=== PATIENT | female | born 1945 | race Caucasian/White ===

== ENCOUNTER → 2016-12-05 | Outpatient (CLI) | payer MEDICARE ==
[~2016-12-05] MED LIST: AMIO200T PO; ASPI81TA11 PO; BENEPOW8 PO; CYCL5TAB PO; CYMB60CA PO; DIPH25CA PO; ESTA2TAB PO; HYDR-3533 PO; KAOP240C PO; LIPI40TA PO; LORA-373 PO; MARI5CAP PO; META800T81 PO; METO25TA3 PO; MIRTA15 PO; MUPI2%T TOPICAL; NITR1SUB3 SL; PLAV75TA29 PO; RENATAB5 PO; SENS90TA PO; SEVEL800 PO; SITA50 PO; TRAZ300T2 PO; ULTR37.55 PO; ZETI10TA5 PO
[2016-12-05 14:22] LABS: HEMATOCRIT 30.5 % (35.0-46.0); MEAN CELL VOLUME 93.2 FL (80.0-100.0); MEAN CORPUSCULAR HEMOGLOBIN 29.9 PG (27.0-34.0); MEAN CORPUSCULAR HGB CONC 32.1 % (32.0-36.0); PLATELET COUNT 489 TH/MM3 (150-450); RED BLOOD COUNT 3.28 MIL/MM3 (4.00-5.30); RED CELL DISTRIBUTION WIDTH 18.4 % (11.6-17.2); REVIEW FLAG FINAL; WHITE BLOOD COUNT 16.7 TH/MM3 (4.0-11.0)
[2016-12-05 15:34] LABS: ALKALINE PHOSPHATASE 82 U/L (45-117); ALT (GPT) 37 U/L (10-53); ANION GAP 15 MEQ/L (5-15); AST (GOT) 43 U/L (15-37); BLOOD UREA NITROGEN 37 MG/DL (7-18); CALCIUM-PROTEIN CORRECTED 7.7 MG/DL (8.5-10.1); CHLORIDE 102 MEQ/L (98-107); GLOMERULAR FILTRATION RATE 6 ML/MIN (>89); GLUCOSE,FASTING 71 MG/DL (74-99); LDL CHOLESTEROL 52 MG/DL (0-99); POTASSIUM 3.5 MEQ/L (3.5-5.1); SODIUM (NA) 140 MEQ/L (136-145); TOTAL BILIRUBIN ADULT 0.3 MG/DL (0.2-1.0)
[2016-12-05 16:19] LABS: HEMOGLOBIN A1a 1.1 %; HEMOGLOBIN A1b 2.4 %; HEMOGLOBIN Ao 82.5 %; HEMOGLOBIN LA1C 2.9 %; HEMOGLOBIN P3 6.6 %
== END ==
LOC: CLAB 13:57
PROVIDERS: ATTEND Family Medicine
DX: E78.5 Hyperlipidemia, unspecified (principal); I63.50 Cerebral infarction due to unspecified occlusion or stenosis of unspecified cerebral artery; F31.30 Bipolar disorder, current episode depressed, mild or moderate severity, unspecified; I12.0 Hypertensive chronic kidney disease with stage 5 chronic kidney disease or end stage renal disease; N18.5 Chronic kidney disease, stage 5; E11.22 Type 2 diabetes mellitus with diabetic chronic kidney disease; I73.9 Peripheral vascular disease, unspecified
CPT/HCPCS: 36415; 80053; 80061; 83036; 84443; 85027

== ENCOUNTER 2017-05-05 09:53 | Inpatient (IN) | payer MEDICARE ==
[2017-05-05] VITALS (8 sets, daily range): BP systolic 116–146; BP diastolic 58–84; PULSE 66–79; RESP 16–20; TEMP 96–97.9; O2SAT 96–99
[~2017-05-05] VITALS: Ht 162.6 cm; Wt 51.8 kg
--- NOTE | 2017-05-05 10:05 | PD ---
HPI Chief Complaint: Fall Time Seen by Provider: 10:04 Travel History International Travel<30 days: No Contact w/Intl Traveler<30days: No Traveled to known affect area: No History of Present Illness HPI 71-year-old female came to the emergency room with history of fall and unable to get up from the floor. Patient says this happened at around 2 AM in the morning. However she says she's been sick for past 1 week or so. Patient has end-stage renal disease and does peritoneal dialysis every day at home. However because of her debilitated condition where she has been unable to ambulate he has not had peritoneal dialysis done in the past 2 days at least. Patient has history of stroke in the past. She appears to be in distress but able to communicate and answer questions appropriately. She is complaining of lower back pain radiating down her right leg but says that her sciatica pain which she's had in the past. No history of head injury that patient recalls. PFSH Past Medical History Narrative Medical List of her past medical, surgical, social and family history was reviewed from the nursing note. Hx Anticoagulant Therapy: Yes (PLAVIX ) Asthma: Yes (SLIGHTLY) Blood Disorders: No Cancer: No Cardiovascular Problems: Yes High Cholesterol: Yes Chest Pain: No Congestive Heart Failure: No COPD: No Cerebrovascular Accident: Yes Diabetes: Yes Dialysis: Yes (PERITONEAL) Diminished Hearing: No Endocrine: Yes GERD: No Genitourinary: Yes Headaches: Yes Hepatitis: No Hiatal Hernia: No Hypertension: Yes Immune Disorder: No Kidney Stones: No Musculoskeletal: No Neurologic: Yes Psychiatric: No Reproductive: No Respiratory: No Immunizations Current: Yes Migraines: No Myocardial Infarction: Yes Renal Failure: Yes (PERITONEAL DIALYSIS) Seizures: No Thyroid Disease: No Ulcer: No PNEUMOCCOCAL Vaccine (Year): 1 Menopausal: Yes Past Surgical History Abdominal Surgery: Yes (CHOLECYSTECTOMY) AICD: No Appendectomy: Yes Body Medical Devices: TENCKHOFF TUBE Cardiac Surgery: No Cholecystectomy: Yes Ear Surgery: No Endocrine Surgery: No Eye Surgery: No Genitourinary Surgery: Yes (CYSTOPLASTY/RECTAL PLASTY) Gynecologic Surgery: No Joint Replacement: No Oral Surgery: Yes (TONSILLECTOMY) Pacemaker: No Thoracic Surgery: No Tonsillectomy: Yes Other Surgery: Yes Social History Alcohol Use: No Tobacco Use: Yes (1 PPD) Substance Use: No Allergies-Medications (Allergen,Severity, Reaction): Coded Allergies: Ancef (Verified Allergy, Severe, 05/05/17) ANAPHYLAXIS Bran (Verified Allergy, Severe, Anaphylaxis, 05/05/17) Cephalosporins (Verified Allergy, Severe, 05/05/17) Contrast Media (Verified Allergy, Severe, 05/05/17) Keflex (Verified Allergy, Severe, 05/05/17) Penicillin (Verified Allergy, Severe, 05/05/17) Percocet (Verified Allergy, Severe, 05/05/17) Percodan (Verified Allergy, Severe, 05/05/17) Sulfa (Verified Allergy, Severe, 05/05/17) Talwin (Verified Allergy, Severe, 05/05/17) White Fish (Verified Allergy, Severe, ANYPHYLAXIS, 05/05/17) ALL FISH PRODUCTS Amoxicillin (Verified Allergy, Unknown, 05/05/17) Floxcin (Verified Allergy, Unknown, 05/05/17) Propofol (Verified Allergy, Unknown, 05/05/17) Tetracycline (Verified Allergy, Unknown, 05/05/17) Tuna (Verified Allergy, Unknown, 05/05/17) Uncoded Allergies: BEANS (Allergy, Severe, 04/16/11) Comments List of her allergies reviewed from the nursing note. Reported Meds & Prescriptions Reported Meds & Active Scripts Active Metoprolol Tartrate 25 Mg Tab 25 Mg PO Q12HR 30 Days Aspirin EC (Aspirin) 81 Mg Tabdr 81 Mg PO DAILY 30 Days Reported Colchicine 0.6 Mg Cap 0.6 Mg PO DAILY Lotrisone Topical (Betamethasone/Clotrimazole) 1-0.05% Cream 1 Applic TOPICAL BID Colace (Docusate Sodium) 100 Mg Capsule 1 Cap PO BID Sinemet (Carbidopa/Levodopa) 10-100 Mg Tab 1 Tab PO Q8HR Plavix (Clopidogrel Bisulfate) 75 Mg Tab 75 Mg PO DAILY Sensipar (Cinacalcet) 90 Mg Tab 90 Mg PO DAILY Zetia (Ezetimibe) 10 Mg Tab 10 Mg PO HS Michelle-Jesse (B-Complex W/ C & Folic Acid) 1 Tab 1 Tab PO DAILY Renvela (Sevelamer Carbonate) 800 Mg Tab 2,400 Mg PO TIDPC TAKE WITH EACH MEAL Lipitor (Atorvastatin Calcium) 40 Mg Tab 40 Mg PO HS Diphenhydramine (Diphenhydramine HCl) 25 Mg Cap 25 Mg PO Q6HR PRN Vijay LOPEZ (Duloxetine HCl) 60 Mg Capdr 60 Mg PO DAILY Narrative Medication List of her home medications reviewed from the nursing note. Review of Systems Except as stated in HPI: all other systems reviewed are Neg Physical Exam Narrative GENERAL: Awake, alert, moderate distress, elderly and frail, looks older than her age, disheveled SKIN: Focused skin assessment warm/dry. Pale, large skin tear on the dorsum of her right wrist, disheveled, poor skin hygiene HEAD: Atraumatic. Normocephalic. EYES: Pupils equal and round. No scleral icterus. No injection or drainage. ENT: No nasal bleeding or discharge. Dry mucous membrane and coated tongue. NECK: Trachea midline. No JVD. CARDIOVASCULAR: Regular rate and rhythm. No murmur appreciated. RESPIRATORY: No accessory muscle use. Clear to auscultation. Breath sounds equal bilaterally. GASTROINTESTINAL: Abdomen soft, non-tender, nondistended. Hepatic and splenic margins not palpable. MUSCULOSKELETAL: No obvious deformities. No clubbing. No cyanosis. No edema. NEUROLOGICAL: Awake and alert. No obvious cranial nerve deficits. Left upper and lower extremity motor weakness from previous stroke. Normal speech. PSYCHIATRIC: Appropriate mood and affect; insight and judgment normal. Data Data Last Documented VS Orders Electrocardiogram (05/05/17 10:14) Basic Metabolic Panel (Bmp) (05/05/17 10:14) Ckmb (Isoenzyme) Profile (05/05/17 10:14) Complete Blood Count With Diff (05/05/17 10:14) Magnesium (Mg) (05/05/17 10:14) Prothrombin Time / Inr (Pt) (05/05/17 10:14) Act Partial Throm Time (Ptt) (05/05/17 10:14) Troponin I (05/05/17 10:14) Chest, Single Ap (05/05/17 10:14) Ecg Monitoring (05/05/17 10:14) Bilateral Bp Monitoring (05/05/17 10:14) Iv Access Insert/Monitor (05/05/17 10:14) Oximetry (05/05/17 10:14) Oxygen Administration (05/05/17 10:14) Sodium Chloride 0.9% Flush (Ns Flush) (05/05/17 10:15) Sodium Chlorid 0.9% 500 Ml Inj (Ns 500 M (05/05/17 10:15) Creatine Kinase (Cpk) (05/05/17 10:14) Hip, Uni(Ap&Lat) W Ap Pelvis (05/05/17 ) Spine, Lumbar Comp W/Obliq (05/05/17 ) Morphine Inj (Morphine Inj) (05/05/17 10:15) Ct Brain W/O Iv Contrast(Rout) (05/05/17 ) ^ Dialysis Permit (05/05/17 11:09) Notify Dr: Other (05/05/17 11:09) ^ Dialysis Catheter Care (05/05/17 11:09) ^ Dialysis Dressing EZIO.Q2D (05/05/17 11:09) ^ Dialysis Orders (05/05/17 11:09) Heparin Inj (Heparin Inj) (05/05/17 11:15) Sodium Chloride 0.9% Flush (Ns Flush) (05/05/17 11:15) CKMB (05/05/17 11:00) CKMB% (05/05/17 11:00) Admit Order (Ed Use Only) (05/05/17 12:29) Labs MDM Medical Decision Making Medical Screen Exam Complete: Yes Emergency Medical Condition: Yes Medical Record Reviewed: Yes Interpretation(s) Twelve-lead EKG was reviewed by me. Normal sinus rhythm, normal axis, poor R- wave progression, nonspecific ST-T wave changes. Heart rate of 69 bpm. Differential Diagnosis Electrified abnormality, hip fracture, lumbar fracture, end-stage renal disease Narrative Course 12:15 PM blood test results are suggestive of end-stage renal disease with metabolic acidosis. Her troponin is elevated. Patient never complained of any chest pain. Given her end-stage renal disease and not having any other dialysis done this event could've been at any point. EKG is not suggestive of any ST elevations. I have admitted this patient to the residents. I spoke with Dr. Kuo regarding her peritoneal dialysis orders and he said he would put those in. Physician Communication Physician Communication Dr. Kuo Diagnosis Primary Impression: End stage renal disease Additional Impressions: Peritoneal dialysis status Weakness Inability to ambulate due to hip Elevated troponin I level Metabolic acidosis missed dialysis Anemia due to chronic illness Skin tear of right hand without complication Qualified Code: S61.411A - Skin tear of right hand without complication, initial encounter Admitting Information Admitting Physician Requests: Admit Scripts Hydrocodone-Acetaminophen 5-325 mg Tab1 Tab PO Q4H PRN (PAIN GREATER THAN 5) # 20 TAB Prov:Radha Falk MD 05/08/17 Megestrol Liq 40 Mg/Ml [id number] Mg PO DAILY 30 Days Prov:Radha Falk MD 05/08/17 Amiodarone 200 Mg [id number] Mg PO DAILY #60 TAB Ref 0 Prov:Radha Falk MD 05/08/17 Mya Serrano MD May 05, 2017 10:04 Mean Platelet Volume 10.9 FL Neutrophils (%) (Auto) 75.7 % Lymphocytes (%) (Auto) 12.2 % Monocytes (%) (Auto) 9.3 % Eosinophils (%) (Auto) 2.4 % Basophils (%) (Auto) 0.4 % Neutrophils # (Auto) 8.8 TH/MM3 Lymphocytes # (Auto) 1.4 TH/MM3 Monocytes # (Auto) 1.1 TH/MM3 Eosinophils # (Auto) 0.3 TH/MM3 Basophils # (Auto) 0.0 TH/MM3 CBC Comment DIFF FINAL Differential Comment Prothrombin Time 11.0 SEC Prothromb Time International 1.0 RATIO Ratio Activated Partial 29.4 SEC Thromboplast Time Sodium Level 138 MEQ/L Potassium Level 4.5 MEQ/L Chloride Level 110 MEQ/L Carbon Dioxide Level 16.4 MEQ/L Anion Gap 12 MEQ/L Blood Urea Nitrogen 95 MG/DL Creatinine 9.92 MG/DL Estimat Glomerular Filtration 4 ML/MIN Rate Random Glucose 80 MG/DL Calcium Level 9.5 MG/DL Magnesium Level 2.5 MG/DL Total Creatine Kinase 301 U/L Creatine Kinase MB 7.2 NG/ML Creatine Kinase MB % 2.4 % Troponin I 1.31 NG/ML [facility] Medical Decision Making Medical Screen Exam Complete: Yes Emergency Medical Condition: Yes Medical Record Reviewed: Yes Interpretation(s) Twelve-lead EKG was reviewed by me. Normal sinus rhythm, normal axis, poor R- wave progression, nonspecific ST-T wave changes. Heart rate of 69 bpm. Differential Diagnosis Electrified abnormality, hip fracture, lumbar fracture, end-stage renal disease Narrative Course 12:15 PM blood test results are suggestive of end-stage renal disease with metabolic acidosis. Her troponin is elevated. Patient never complained of any chest pain. Given her end-stage renal disease and not having any other dialysis done this event could've been at any point. EKG is not suggestive of any ST elevations. I have admitted this patient to the residents. I spoke with Dr. Kuo regarding her peritoneal dialysis orders and he said he would put those in. Physician Communication Physician Communication Dr. Kuo Diagnosis Primary Impression: End stage renal disease Additional Impressions: Peritoneal dialysis status Weakness Inability to ambulate due to hip Elevated troponin I level Metabolic acidosis missed dialysis Anemia due to chronic illness Skin tear of right hand without complication Qualified Code: S61.411A - Skin tear of right hand without complication, initial encounter Admitting Information Admitting Physician Requests: Admit Mya Serrano MD May 05, 2017 10:04
[2017-05-05] MEDS ORDERED: SODIUM CHLORID 0.9% 500 ML INJ 500 ML IV ONE (10:15)
[2017-05-05] MEDS ORDERED: MORPHINE SULFATE 4 MG/ML INJ IV PUSH ONE (10:15)
[2017-05-05] MEDS ORDERED: SODIUM CHLORIDE 0.9% FLUSH 10 ML FLUSH IVF PRN (10:15)
--- NOTE | 2017-05-05 11:02 | RADRPT ---
EXAM DATE/TIME: 05/05/2017 10:49 [facility] COMPARISON: No previous studies available for comparison. INDICATIONS : Fall, complains of right hip pain. MEDICAL HISTORY : Stroke. Myocardial infarction. SURGICAL HISTORY : None. ENCOUNTER: Initial ACUITY: 1 day PAIN SCORE: 10/10 LOCATION: Right hip FINDINGS: There is moderate diffuse primary degenerative changes throughout the lumbar spine. There is curvatur e of the lumbar spine to the left. There is disc degeneration with disc space narrowing at all levels . There is grade 1 anterior spondylolisthesis of L4 over L5. No compression fractures are demonstrate d. There is atherosclerotic changes in the abdominal aorta. There is mild aneurysmal dilatation of th e infrarenal abdominal aorta 3.1 cm. The nonspecific calcifications in the upper abdomen. CONCLUSION: 1. Moderate diffuse primary degenerative changes, disc degeneration and disc space narrowing througho ut the lumbar spine. 2. Grade 1 anterior spondylolisthesis of L4 over L5 3. Mild aneurysmal dilatation of the infrarenal abdominal aorta at 3.1 cm. Nadeem Christian MD on May 05, 2017 at 10:58 Board Certified Radiologist. This report was verified electronically.
[2017-05-05] MEDS ORDERED: HEPARIN SODIUM - IV 10,000 UNITS/10 ML VIAL XX PRN (11:15)
[2017-05-05] MEDS ORDERED: SODIUM CHLORIDE 0.9% FLUSH 10 ML FLUSH IV FLUSH PRN ×2 (11:15→13:15)
--- NOTE | 2017-05-05 11:15 | RADRPT ---
EXAM DATE/TIME: 05/05/2017 10:39 [facility] COMPARISON: CHEST SINGLE AP, September 04, 2016, 1:43. INDICATIONS : Fall. MEDICAL HISTORY : Stroke. Myocardial infarction. SURGICAL HISTORY : None. ENCOUNTER: Initial ACUITY: 1 day PAIN SCORE: 10/10 LOCATION: Bilateral chest FINDINGS: Moderate interstitial edema is present. Valvular calcifications are noted. Degenerative changes see n about both shoulders worse on the right than the left. CONCLUSION: Moderate interstitial edema. Roque Rodirguez MD FACR on May 05, 2017 at 11:03 Board Certified Radiologist. This report was verified electronically.
--- NOTE | 2017-05-05 11:18 | RADRPT ---
EXAM DATE/TIME: 05/05/2017 10:49 [facility] COMPARISON: No previous studies available for comparison. INDICATIONS : Fall, complains of right hip pain. MEDICAL HISTORY : Stroke. Myocardial infarction. SURGICAL HISTORY : None. ENCOUNTER: Initial ACUITY: 1 day PAIN SCORE: 10/10 LOCATION: Right hip FINDINGS: Extensive degenerative changes are seen about the hip. Moderate vascular calcifications are noted. Alignment is anatomic. Fracture is not appreciated. Peritoneal dialysis catheter is seen coiling in the pelvis. CONCLUSION: 1. Negative for fracture. 2. Extensive vascular calcifications. Roque Rodriguez MD FACR on May 05, 2017 at 11:03 Board Certified Radiologist. This report was verified electronically.
[2017-05-05] MEDS ORDERED: SINE10100 PO (11:21)
[2017-05-05] MEDS ORDERED: SKEL800T21 PO (11:21)
[2017-05-05] MEDS ORDERED: ASPI325T PO (11:21)
[2017-05-05] MEDS ORDERED: COLA100C PO (11:21)
[2017-05-05] MEDS ORDERED: LOTR15T TOPICAL (11:21)
[2017-05-05] MEDS ORDERED: SEVEL800 PO (11:21)
[2017-05-05] MEDS ORDERED: METO5TAB PO (11:21)
[2017-05-05] MEDS ORDERED: COLC1CAP3 PO (11:21)
[2017-05-05] MEDS ORDERED: SENS60TA PO (11:21)
--- NOTE | 2017-05-05 11:21 | RADRPT ---
EXAM DATE/TIME: 05/05/2017 11:09 [facility] COMPARISON: CT BRAIN W/O CONTRAST, January 06, 2012, 22:13. INDICATIONS : Fall this morning, general weakness. RADIATION DOSE: 29.49 CTDIvol (mGy) MEDICAL HISTORY : Myocardial infarction. Stroke SURGICAL HISTORY : Cholecystectomy. Appendectomy. ENCOUNTER: Initial ACUITY: 1 day PAIN SCALE: 0/10 LOCATION: Bilateral head TECHNIQUE: Multiple contiguous axial images were obtained of the head. Using automated exposure control and adj ustment of the mA and/or kV according to patient size, radiation dose was kept as low as reasonably a chievable to obtain optimal diagnostic quality images. DICOM format image data is available electro nically for review and comparison. FINDINGS: CEREBRUM: The ventricles are normal for age. No evidence of midline shift, mass lesion, hemorrhage or acute in farction. No extra-axial fluid collections are seen. There is an old area of infarction involving th e right mid parietal area. POSTERIOR FOSSA: The cerebellum and brainstem are intact. The 4th ventricle is midline. The cerebellopontine angle i s unremarkable. EXTRACRANIAL: The visualized portion of the orbits is intact. SKULL: The calvaria is intact. No evidence of skull fracture. CONCLUSION: 1. No acute intracranial hemorrhage. 2. Old area of infarction involving the right mid parietal area. 3. No significant change compared to the prior exam from 2011 Nadeem Christian MD on May 05, 2017 at 11:17 Board Certified Radiologist. This report was verified electronically.
[2017-05-05 11:38] LABS: AUTOMATED NEUTROPHIL # 8.8 TH/MM3 (1.8-7.7); BASOPHIL % 0.4 % (0.0-2.0); EOSINOPHIL # 0.3 TH/MM3 (0-0.4); EOSINOPHIL % 2.4 % (0.0-4.0); HEMATOCRIT 26.9 % (35.0-46.0); HEMO FLAGS DIFF FINAL; LYMPH % 12.2 % (9.0-44.0); LYMPHOCYTE # 1.4 TH/MM3 (1.0-4.8); MEAN CELL VOLUME 96.6 FL (80.0-100.0); MEAN CORPUSCULAR HEMOGLOBIN 31.9 PG (27.0-34.0); MONO % 9.3 % (0.0-8.0); NEUT % 75.7 % (16.0-70.0); PLATELET COUNT 295 TH/MM3 (150-450); RED BLOOD COUNT 2.78 MIL/MM3 (4.00-5.30); WHITE BLOOD COUNT 11.7 TH/MM3 (4.0-11.0)
[2017-05-05 11:48] LABS: APTT (PATIENT) 29.4 SEC (24.3-30.1)
[2017-05-05 11:53] LABS: BICARBONATE 16.4 MEQ/L (21.0-32.0); MAGNESIUM 2.5 MG/DL (1.5-2.5); POTASSIUM 4.5 MEQ/L (3.5-5.1)
[2017-05-05 12:24] LABS: CKMB 7.2 NG/ML (0.5-3.6)
--- NOTE | 2017-05-05 12:38 | HHI.HP ---
[facility] Service Family Medicine Primary Care Physician Jacque Drake MD Admission Diagnosis end-stage renal disease, peritoneal dialysis, elevated troponin Diagnoses: International Travel<30 Days: No Contact w/Intl Traveler<30days: No Known Affected Area: No History of Present Illness History limited to poor historian Patient is a 71-year-old female with PMH significant for end-stage renal disease on peritoneal dialysis, DM, CAD. Presented today due to fall. She reports that she was putting her birds into their cage around 2 AM and then she fell. She does not know how she fell or any symptoms related to the fall. She does not know if she lost consciousness or if she hit her head. Was unable to get up unassisted. Her neighbor found her on the ground at 11 AM at which time the ambulance were called. Patient has not attempted to ambulate since initial fall and reports that she is unable to due to pain. She reports that she had poor ambulation prior to fall but would not specify if she uses a walker, wheelchair, any other assistive device. Reports residual left arm/leg weakness after stroke. She reports that she has been falling frequently with 5 falls over the last 4 days. Has been able to stand up independently after those falls. This most recent fall resulted in right shoulder, right hand, left hip, left mid back pain. She also reports progressive weakness over the last 7 days. Did not perform peritoneal dialysis for the last 2 days because she was too weak to lift up the bags. Also reports anuria for the last 2 days which is new. Patient denies any chest pain, SOB, palpitations, abdominal pain, dysuria, blood in stool, nausea/vomiting. (Beverly Vanegas MD R2) Review of Systems Constitutional: DENIES: Chills, Dizziness, Change in appetite Endocrine: DENIES: Polyuria Eyes: DENIES: Eye inflammation Ears, nose, mouth, throat: DENIES: Nasal discharge, Running Nose Respiratory: DENIES: Cough, Sputum production, Shortness of breath Cardiovascular: DENIES: Chest pain, Palpitations, Syncope, Lower Extremity Edema Gastrointestinal: DENIES: Abdominal pain, Constipation, Diarrhea, Nausea, Vomiting Genitourinary: DENIES: Urinary incontinence, Dysuria Musculoskeletal: COMPLAINS OF: Joint pain, Joint Swelling, Back pain Integumentary: COMPLAINS OF: Abnormal pigmentation Hematologic/lymphatic: COMPLAINS OF: Bruising, DENIES: Lymphadenopathy Neurologic: DENIES: Headache, Localized weakness Psychiatric: DENIES: Confusion (Beverly Vanegas MD R2) Past Family Social History Past Medical History DM COPD HTN HLD CAD-VT in 10/2016 Stroke ESRD on PD Past Surgical History Cholecystectomy tonsillectomy Appendectomy Reported Medications Reported Meds & Active Scripts Active Metoprolol Tartrate 25 Mg Tab 25 Mg PO Q12HR 30 Days Aspirin EC (Aspirin) 81 Mg Tabdr 81 Mg PO DAILY 30 Days Reported Colchicine 0.6 Mg Cap 0.6 Mg PO DAILY Skelaxin (Metaxalone) 800 Mg Tablet 1 Tab PO TID Lotrisone Topical (Betamethasone/Clotrimazole) 1-0.05% Cream 1 Applic TOPICAL BID Aspirin 325 Mg Tab 325 Mg PO BID Renvela (Sevelamer Carbonate) 800 Mg Tab 3,200 Mg PO TID Colace (Docusate Sodium) 100 Mg Capsule 1 Cap PO BID Sensipar (Cinacalcet) 60 Mg Tab 60 Mg PO BID Metoclopramide (Metoclopramide HCl) 5 Mg Tab 5 Mg PO TIDAC Sinemet (Carbidopa/Levodopa) 10-100 Mg Tab 1 Tab PO Q8HR Amiodarone (Amiodarone HCl) 200 Mg Tab 200 Mg PO BID Plavix (Clopidogrel Bisulfate) 75 Mg Tab 75 Mg PO DAILY Ultracet (Tramadol-Acetaminophen) 37.5-325 mg Tab 1 Tab PO QID PRN Flexeril (Cyclobenzaprine HCl) 5 Mg Tab 5 Mg PO DAILY PRN Bactroban Topical (Mupirocin) 2 % Cream 1 Applic TOPICAL TID APPLY TO PORT Surfak (Docusate Calcium) 240 Mg Cap 240 Mg PO DAILY Lortab (Hydrocodone-Acetaminophen) 5-325 Mg Tab 1 Tab PO DAILY PRN Nitroglycerin SL (Nitroglycerin) 0.4 Mg Subl 0.4 Mg SL DIRECTED PRN ONE TABLET UNDER THE TONGUE NEEDED FOR CHEST PAIN, MAY REPEAT EVERY FIVE MINUTES FOR A TOTAL OF 3 DOSES OR CALL 911 IF NO RELIEF Sensipar (Cinacalcet) 90 Mg Tab 90 Mg PO DAILY Mirtazapine 15 Mg Tab 15 Mg PO HS Marinol (Dronabinol) 5 Mg Cap 5 Mg PO TIDPC Zetia (Ezetimibe) 10 Mg Tab 10 Mg PO HS Trazodone (Trazodone HCl) 300 Mg Tab 300 Mg PO HS Michelle-Jesse (B-Complex W/ C & Folic Acid) 1 Tab 1 Tab PO DAILY Renvela (Sevelamer Carbonate) 800 Mg Tab 2,400 Mg PO TIDPC TAKE WITH EACH MEAL Lipitor (Atorvastatin Calcium) 40 Mg Tab 40 Mg PO HS Diphenhydramine (Diphenhydramine HCl) 25 Mg Cap 25 Mg PO Q6HR PRN Januvia (Sitagliptin Phosphate) 50 Mg Tab 50 Mg PO DAILY Estazolam 2 Mg Tab 2 Mg PO HS Cymbalta DR (Duloxetine HCl) 60 Mg Capdr 60 Mg PO DAILY Lorazepam 0.5 Mg Tab 0.5 Mg PO Q8H (Beverly Vanegas MD R2) Allergies: Coded Allergies: Ancef (Verified Allergy, Severe, 05/05/17) ANAPHYLAXIS Bran (Verified Allergy, Severe, Anaphylaxis, 05/05/17) Cephalosporins (Verified Allergy, Severe, 05/05/17) Contrast Media (Verified Allergy, Severe, 05/05/17) Keflex (Verified Allergy, Severe, 05/05/17) Penicillin (Verified Allergy, Severe, 05/05/17) Percocet (Verified Allergy, Severe, 05/05/17) Percodan (Verified Allergy, Severe, 05/05/17) Sulfa (Verified Allergy, Severe, 05/05/17) Talwin (Verified Allergy, Severe, 05/05/17) White Fish (Verified Allergy, Severe, ANYPHYLAXIS, 05/05/17) ALL FISH PRODUCTS Amoxicillin (Verified Allergy, Unknown, 05/05/17) Floxcin (Verified Allergy, Unknown, 05/05/17) Propofol (Verified Allergy, Unknown, 05/05/17) Tetracycline (Verified Allergy, Unknown, 05/05/17) Tuna (Verified Allergy, Unknown, 05/05/17) Uncoded Allergies: BEANS (Allergy, Severe, 04/16/11) Family History Mother: , possible lung cancer, from surgery Father: at 46 due to [place] Social History Lives alone Tobacco: 1ppd x 40+ years Alcohol: denies Illicit: denies (Beverly Vanegas MD R2) Physical Exam Vital Signs Vital Signs Date Time Temp Pulse Resp B/P Pulse Ox O2 Delivery O2 Flow Rate FiO2 05/05/17 11:26 70 18 134/84 96 Room Air 05/05/17 10:26 97.9 69 20 116/58 97 Room Air 05/05/17 10:26 97 Room Air 05/05/17 10:16 74 20 99 Room Air 05/05/17 10:16 97.9 69 16 116/65 97 Room Air 05/05/17 10:01 97.9 73 20 99 Physical Exam GENERAL: No apparent distress. Resting comfortably in bed but is drowsy from recent morphine SKIN: Right shoulder erythema and ecchymosis. Skin tear on right hand going from PIP of pointer finger to wrist. Dried blood present. Extremely dry and flaky skin on upper and lower extremity. Multiple areas of ecchymosis on back and left mid back. Unable to evaluate sacrum due to severe pain from patient. HEAD: Left forehead ecchymosis. EYES: Pupils equal round and reactive. Extraocular motions intact. No scleral icterus. No injection or drainage. ENT: Nose without bleeding, purulent drainage. Throat without erythema, tonsillar hypertrophy or exudate. Uvula midline. Airway patent. NECK: No JVD or lymphadenopathy. CARDIOVASCULAR: Regular rate and rhythm without gallops, or rubs. Grade 3/6 SHERWIN heard best on left mid-clavicular line. RESPIRATORY: Coarse bibasilar crackles. Good air movement bilaterally. Breath sounds equal bilaterally. No wheezes. GASTROINTESTINAL: Abdomen soft, non-tender, nondistended. No signs of infection of peritoneal catheter. No hepato-splenomegaly, or palpable masses. No guarding. MUSCULOSKELETAL: Extremities without clubbing, cyanosis, or edema. No calf tenderness * Equal hand senior web developer strength bilaterally * Decrease left leg internal rotation due to pain. Right leg unremarkable NEUROLOGICAL: Awake and alert. Oriented to person, place, time. Normal speech. Laboratory Laboratory Tests Test 05/05/17 11:00 White Blood Count 11.7 Red Blood Count 2.78 Hemoglobin 8.9 Hematocrit 26.9 Mean Corpuscular Volume 96.6 Mean Corpuscular Hemoglobin 31.9 Mean Corpuscular Hemoglobin 33.0 Concent Red Cell Distribution Width 17.0 Platelet Count 295 Mean Platelet Volume 10.9 Neutrophils (%) (Auto) 75.7 Lymphocytes (%) (Auto) 12.2 Monocytes (%) (Auto) 9.3 Eosinophils (%) (Auto) 2.4 Basophils (%) (Auto) 0.4 Neutrophils # (Auto) 8.8 Lymphocytes # (Auto) 1.4 Monocytes # (Auto) 1.1 Eosinophils # (Auto) 0.3 Basophils # (Auto) 0.0 CBC Comment DIFF FINAL Differential Comment Prothrombin Time 11.0 Prothromb Time International 1.0 Ratio Activated Partial 29.4 Thromboplast Time Sodium Level 138 Potassium Level 4.5 Chloride Level 110 Carbon Dioxide Level 16.4 Anion Gap 12 Blood Urea Nitrogen 95 Creatinine 9.92 Estimat Glomerular Filtration 4 Rate Random Glucose 80 Calcium Level 9.5 Magnesium Level 2.5 Total Creatine Kinase 301 Creatine Kinase MB 7.2 Creatine Kinase MB % 2.4 Troponin I 1.31 (Beverly Vanegas MD R2) Result Diagram: 05/05/17 1100 05/05/17 1100 Imaging Last Impressions Lumbar Spine X-Ray 05/05/17 0000 Signed Impressions: Service Date/Time: Friday, May 05, 2017 10:49 - CONCLUSION: 1. Moderate diffuse primary degenerative changes, disc degeneration and disc space narrowing throughout the lumbar spine. 2. Grade 1 anterior spondylolisthesis of L4 over L5 3. Mild aneurysmal dilatation of the infrarenal abdominal aorta at 3.1 cm. Nadeem Christian MD Head CT 05/05/17 0000 Signed Impressions: Service Date/Time: Friday, May 05, 2017 11:09 - CONCLUSION: 1. No acute intracranial hemorrhage. 2. Old area of infarction involving the right mid parietal area. 3. No significant change compared to the prior exam from 2011 Nadeem Christian MD (Beverly Vaneags MD R2) Assessment and Plan Assessment and Plan 71-year-old female H lifted for CAD, ESRD, VT, DM. Admitted for generalized weakness, fall, elevated troponin. Code Status Full Discussed Condition With Dr. Alfonso, Dr. García Angel and Dr. Bravo of note, patient will be switched to [facility] service as PCP is Dr. Porras ( Beverly Vanegas MD R2) Attending Attestation The patient has been seen and examined. The chart and all resident notes have been reviewed. I agree that inpatient care is appropriate and that a two midnight stay is expected for the reasons documented in the resident history and physical. I have discussed this with the resident and certify the resident s order for inpatient admission. Patient seen and examined. Case reviewed and discussed Please refer to resident H&P for further details regarding HPI, ROS, PMH, SurgHx , FH and Sochx In summary, patient is a 71yoF with a history of CVA with mild L sided residual weakness, CAD s/p NSTEMI, ESRD on PD, presenting with 2 days of weakness, inability to complete her PD. She is seen in her hospital room, denying any chest pain. She complains of weakness. GENERAL: Thin elderly female, awake and alert. NAD SKIN: Warm and dry. HEAD: Normocephalic AT. EYES: No scleral icterus. No injection or drainage. ENT: OP clear. MM slightly dry NECK: Supple, trachea midline. No JVD or lymphadenopathy. CARDIOVASCULAR: Regular rate and rhythm without audible murmurs, gallops, or rubs. RESPIRATORY: Breath sounds equal and clear bilaterally. No accessory muscle use. GASTROINTESTINAL: Abdomen soft, mild diffuse tenderness, mildly distended. MUSCULOSKELETAL: No cyanosis, or edema. BACK: Nontender without obvious deformity. No CVA tenderness. NEURO: Mild residual weakness L side, 4/5 LLE, LLE. R side 5/5. Normal speech. CN grossly intact A/P: 71yoF with: Weakness ESRD on PD Hyperkalemia Leukocytosis Elevated trop Urinary retention Fall at home Hx T2DM Nephrology consult to arrange PD Moss to gravity, ~700 cc urine out Monitor BMP PT consult CM for placement as patient lives alone Cardiology consulted, known to Dr. Reyes Trend serial CE, ekg Continue DAPT Accu-checks, SSI Dialysate for culture given mild leukocytosis/abdominal pain/weakness Heparin for DVT proph Patient seen and examined. Case reviewed and discussed Agree with plan of care as discussed with me and documented in the resident note. (Hali Alfonso MD) Problem List: (1) ESRD (end stage renal disease) on dialysis Status: Chronic Plan: On peritoneal dialysis but has missed her last 2 days. Associated with progressive weakness over the last week. Electrolytes unremarkable on admission. Elevated BUN (uremia) may be contributing to poor memory of events. Fluid overload suggested on CXR which shows interstitial edema. Nephrology consulted: Appreciate recommendations * Orders have already been placed for dialysis -Repeat BMP this afternoon -Ammonia added to specimen in lab. -UA ordered (2) Elevated troponin Status: Acute Plan: Hx of CAD. No associated chest pain or SOB. Troponin elevated on admission to a high of 1.31 that is associated with minimum ST depression and T- wave changes in the lateral leads. Elevation exacerbated from poor renal function. However due to history of cardiac arrest about 6 months ago, will closely monitor. Cardiac contribution unclear at this time. -ACS evaluation -cardiac telemetry -echo ordered due to significant murmur and bibasilar crackles. Cardiology consulted: appreciate recommendations. Considering medical management with anticoagulation vs aspirin + plavix only. Medications: * amiodarone 200mg BID * Aspirin 81mg daily * Atorvastatin 40mg * Ezetimibe 10mg * metoprolol Tartrate 25mg (3) Weakness Status: Acute Plan: Progressive weakness over the last week. Likely associated with uremia. Associated with fall. Imaging has thus far been unremarkable -Pain control [place] and morphine -Consider PT consult once cardiac evaluation has been completed. Imaging: * Heat CT: negative * Lumbar spine: degenerative changes but with no acute fractures. * Hip/pelvis: pending * Shoulder: pending * Thoracic spine: pending (4) DM (diabetes mellitus) Status: Chronic Plan: Hold home oral medications -Low dose sliding scale (5) Skin tear of right hand without complication Status: Acute Plan: Superficial laceration after fall of unknown etiology. No signs of infections -Wound care consulted (6) Nutrition, metabolism, and development symptoms Status: Acute Plan: Diet: Heart Healthy Fluids: none Electrolytes: unremarkable DVT PPX: Heparin GI PPX: none indicated (Beverly Vanegas MD R2) Physician Certification 2 Midnight Certification Type: Admission for Inpatient Services Order for Inpatient Services The services are ordered in accordance with Medicare regulations or non- Medicare payer requirements, as applicable. In the case of services not specified as inpatient-only, they are appropriately provided as inpatient services in accordance with the 2-midnight benchmark. Estimated LOS (days): 3 days is the estimated time the patient will need to remain in the hospital, assuming treatment plan goals are met and no additional complications. Post-Hospital Plan: Not yet determined (Beverly Vanegas MD R2) Problem Qualifiers (1) DM (diabetes mellitus): (2) Skin tear of right hand without complication: Qualified Code: S61.411A - Skin tear of right hand without complication, initial encounter Beverly Vanegas MD R2 May 05, 2017 12:38 Hali Alfonso MD May 05, 2017 21:14
[2017-05-05] MEDS ORDERED: NALOXONE HCL 0.4 MG/ML AMP IV PRN ×2 (13:15→14:15)
[2017-05-05] MEDS ORDERED: LACTULOSE SYRUP 20 GM/30 ML CUP PO PRN (13:15)
[2017-05-05] MEDS ORDERED: BISACODYL 10 MG SUPP RECTAL PRN (13:15)
[2017-05-05] MEDS ORDERED: SENNOSIDES 8.6 MG TAB PO PRN (13:15)
[2017-05-05] MEDS ORDERED: DEXTROSE 50% IN WATER 50 ML VIAL(D50) IV PRN (13:30)
[2017-05-05] MEDS ORDERED: ASPIRIN 81 MG CHEW TAB CHEW ONE (13:30)
[2017-05-05] MEDS ORDERED: GLUCAGON 1 MG/ML VIAL OTHER PRN (13:30)
[2017-05-05] MEDS ORDERED: POLYETHYLENE GLYCOL 17 GM PKG PO PRN (13:30)
[2017-05-05] MEDS ORDERED: RESP: ALBUTEROL 2.5 MG/3 ML NEB (PRN) INH (13:30)
[2017-05-05] MEDS: CARBIDOPA/LEVODOPA 10 MG/100 MG TAB PO SCH ×2 (14:00→22:26)
--- NOTE | 2017-05-05 14:02 | EKG ---
Date Performed: 05/05/2017 Time Performed: 11:00:38 PTAGE: 71 years EKG: Sinus rhythm POSSIBLE LEFT ATRIAL ENLARGEMENT LOW QRS VOLTAGE IN EXTREMITY LEADS NONSPECIFIC ST & T-WAVE ABNORMAL ITY BORDERLINE ECG PREVIOUS TRACING : 09/04/2016 22.47 Compared to previous tracing, patient is now in normal sinu s rhythm. DOCTOR: Abdi Meneses Interpretating Date/Time 05/05/2017 14:01:18
[2017-05-05] MEDS ORDERED: ACETAMINOPHEN/HYDROcodone 325 MG/5 MG TAB PO PRN (14:15)
[2017-05-05] MEDS ORDERED: ACETAMINOPHEN 325 MG TAB PO PRN (14:15)
--- NOTE | 2017-05-05 14:29 | RADRPT ---
EXAM DATE/TIME: 05/05/2017 13:40 [facility] COMPARISON: No previous studies available for comparison. INDICATIONS : Fall, complains of back pain MEDICAL HISTORY : Stroke. Myocardial infarction. SURGICAL HISTORY : None. ENCOUNTER: Initial ACUITY: 1 day PAIN SCORE: 10/10 LOCATION: Thoracic spine FINDINGS: There is normal alignment of the thoracic vertebral bodies. There is mild curvature of the thoracic s pine to the right. There is moderate diffuse primary bony degenerative changes, disc degeneration and disc space narrowing throughout the thoracic spine. No definite compression fracture and these are d emonstrated. No paraspinal soft tissue swelling is demonstrated.. CONCLUSION: Diffuse primary degenerative changes throughout the entire thoracic spine. Nadeem Christian MD on May 05, 2017 at 14:25 Board Certified Radiologist. This report was verified electronically.
--- NOTE | 2017-05-05 14:30 | RADRPT ---
EXAM DATE/TIME: 05/05/2017 13:40 [facility] COMPARISON: No previous studies available for comparison. INDICATIONS : Right shoulder pain. MEDICAL HISTORY : Myocardial infarction. Stroke. SURGICAL HISTORY : None. ENCOUNTER: Initial ACUITY: 1 day PAIN SCORE: 10/10 LOCATION: Right shoulder FINDINGS: Multiple view examination of the right shoulder demonstrates no evidence of fracture or dislocation. The glenohumeral and acromioclavicular joints are maintained. There is normal range of motion betwe en internal and external rotation. Bony mineralization is normal. Small calcification adjacent to th e tuberosity. There is some narrowing between the top of the humerus and undersurface of the acromion process. CONCLUSION: 1. No acute fracture joint dislocation. 2. Evidence of shoulder impingement syndrome and calcific tendinitis. Nadeem Christian MD on May 05, 2017 at 14:26 Board Certified Radiologist. This report was verified electronically.
[2017-05-05 15:56] LABS: BACTERIA, URINE RARE /hpf; BLOOD, URINE TRACE (NEG); COMMENT (UR) CULT NOT INDICATED; CULTURE IF INDICATED CULT NOT INDICATED; GLUCOSE,URINE NEG (NEG); KETONE, URINE NEG (NEG); NITRITE,URINE NEG (NEG); URINE COLOR YELLOW (YELLW/STRAW)
[2017-05-05] MEDS: INSULIN ASPART SUPPLEMENTAL SCALE SQ SCH ×2 (16:00→22:03)
[2017-05-05] MEDS ORDERED: cloNIDine HCL 0.1 MG TAB PO PRN (16:00)
[2017-05-05 16:25] LABS: CKMB 7.1 NG/ML (0.5-3.6)
[2017-05-05] MEDS: SEVELAMER CARBONATE 800 MG TAB PO SCH ×2 (17:02→17:06)
[2017-05-05] MEDS: HEPARIN SODIUM - SQ 10,000 UNITS/ML VIAL SQ SCH (17:03)
[2017-05-05] MEDS: ACETAMINOPHEN/HYDROcodone 325 MG/10 MG TAB PO PRN ×2 (17:06→22:26)
[2017-05-05 18:24] LABS: BICARBONATE 13.6 MEQ/L (21.0-32.0); POTASSIUM 5.5 MEQ/L (3.5-5.1)
[2017-05-05] MEDS: MORPHINE SULFATE 4 MG/ML INJ IV PRN (19:03)
--- NOTE | 2017-05-05 19:30 | MB ---
cc: SAWYER GONG DATE OF CONSULTATION: 05/05/2017 DATE OF : 09/20/1950 REASON FOR CONSULTATION: Elevated troponin. HISTORY OF PRESENT ILLNESS 71-year-old white female with history of multiple medical problems including diabetes, end-stage renal disease, on peritoneal dialysis, COPD, CVA, non ST- elevation OK last year which was medically treated, presented to the emergency department due to a fall. She reports frequent falls in the last 4-5 days due to loss of strength in her lower extremities. She does not have any recollection previous to the falls, during or after the falls. She does not know if she lost consciousness or hit her head. She was found by a neighbor around 11 a.m. who called the ambulance. She reports due to the weakness, she has not been able to perform dialysis in the last two days. She denies any chest pain, shortness of breath, palpitations, abdominal pain, fever, chills, nausea, vomiting, diarrhea, dysuria, blood in stools, nausea, vomiting. The patient is a poor historian and we are not able to elicit more information. REVIEW OF SYSTEMS: Negative except for what is mentioned in HPI. PAST MEDICAL HISTORY 1. Remote history of TIA. 2. History of CVA in 2010. 3. Diabetes. 4. Chronic thrombocytosis. 5. Hyperlipidemia. 6. Bipolar disorder. 7. COPD. 8. Hypertension. 9. End-stage renal disease on chronic peritoneal dialysis. PAST SURGICAL HISTORY: 1. Cholecystectomy, appendectomy in 1970. 2. ____plasty in 1975. 3. Melanoma resection 1970. 4. Failed cervical spine fusion in 1992. 5. Right carpal tunnel syndrome in 1992. CARDIAC MEDICATIONS 1. Lipitor 40 milligrams p.o. daily. 2. Plavix 75 mg p.o. daily 3. Zetia 10 milligrams p.o. daily 4. Aspirin 81 mg p.o. daily. ALLERGIES CEPHALOSPORIN CONTRAST MEDIA KEFLEX PENICILLIN PERCOCET SULFA FISH TETRACYCLINE [place] FAMILY HISTORY: Family history noncontributory. SOCIAL HISTORY: She is a smoker, denies alcohol abuse or illicit drug use. PHYSICAL EXAMINATION VITAL SIGNS: Temperature 97, respiratory rate 20, heart rate 73. Blood pressure 116/65, O2 sat 97% on room air. GENERAL: Awake, alert, oriented x3 in no acute distress. NECK: No JVD. No carotid bruits. HEART: Regular rate and rhythm. There is a 2/6 systolic ejection murmur in the aortic focus. No rubs or gallops. LUNGS: Clear to auscultation bilaterally. No rales, rhonchi or wheezing. ABDOMEN: Soft, non-tender, non-distended. Positive bowel sounds. EXTREMITIES: No cyanosis or edema. She does have ecchymosis and abrasion in the right shoulder. LABORATORY DATA Hemoglobin 8.9, hematocrit 26 and white blood cell count 11.7, platelet count 295, INR 1. Chemistries: sodium 138, potassium 4.5, bicarb 16.4, BUN 95, creatinine 9.9. Troponin 1.31. IMAGING STUDIES: Chest x-ray shows moderate interstitial edema. Head CT: No acute intracranial hemorrhage. No change in comparison to prior. No fracture on hip and pelvic x-ray, lumbar spine, shoulder x-ray or thoracic spine x-ray. EKG: sinus rhythm with nonspecific ST-T wave abnormalities. No change from previous EKG in 2016. Echocardiogram done last year shows an EF of 50% with some mild aortic sclerosis and no wall motion abnormality. ASSESSMENT/PLAN 71 year-old female with a history of multiple medical problems, including CVA, diabetes, chronic thrombocytosis, hyperlipidemia, COPD, end-stage renal disease and hypertension, presenting with generalized weakness, frequent falls, found to have slightly abnormal troponin level. She has no cardiovascular complaints , although it is difficult to assess. She is a poor historian. The patient had a similar episode with normal troponin last year which on the ischemic workup did not reveal any significant defects on the nuclear stress test. Having said that, I have discussed with the patient, given her cardiac risk, the possibility to undergo an ischemic workup while inpatient, however, the patient refused. At this time I will recommend to continue aggressive medical management for CAD. RECOMMENDATIONS 1. Medical therapy for severe underlying coronary artery disease. 2. Continue aspirin and Plavix, beta-flor, PRANAY inhibitor, statins. 3. Check 2-D echo to assess LV systolic function. 4. Check TSH, free T3 and T4, urinalysis and blood culture. Thank you for the opportunity to participate in the care of this patient. Further therapy to be determined. MD HAI Bills/ELENA /3:25 PM /7:03 PM MTDD
--- NOTE | 2017-05-05 20:46 | PD.CONS ---
HPI Service Nephrology Consult Requested By Dr. Serrano Reason for Consult ESRD on peritoneal dialysis Primary Care Physician Jacque Drake MD History of Present Illness Patient is 71-year-old the female with history of end-stage renal disease on peritoneal dialysis, diabetes, coronary artery disease, CVA who had a fall injuring her right shoulder and her hand, could not do her peritoneal dialysis has a bags too heavy to lift for her for last 2 days, she got extremely weak and tired and fatigued and came to the emergency with these complaints, creatinine was 9.9 and being in was elevated as well Review of Systems Constitutional: COMPLAINS OF: Fatigue Respiratory: COMPLAINS OF: Shortness of breath Gastrointestinal: COMPLAINS OF: Nausea Musculoskeletal: COMPLAINS OF: Joint pain, Muscle aches, Back pain Neurologic: COMPLAINS OF: Abnormal gait, Localized weakness Past Family Social History Allergies: Coded Allergies: Ancef (Verified Allergy, Severe, 05/05/17) ANAPHYLAXIS Bran (Verified Allergy, Severe, Anaphylaxis, 05/05/17) Cephalosporins (Verified Allergy, Severe, 05/05/17) Contrast Media (Verified Allergy, Severe, 05/05/17) Keflex (Verified Allergy, Severe, 05/05/17) Penicillin (Verified Allergy, Severe, 05/05/17) Percocet (Verified Allergy, Severe, 05/05/17) Percodan (Verified Allergy, Severe, 05/05/17) Sulfa (Verified Allergy, Severe, 05/05/17) Talwin (Verified Allergy, Severe, 05/05/17) White Fish (Verified Allergy, Severe, ANYPHYLAXIS, 05/05/17) ALL FISH PRODUCTS Amoxicillin (Verified Allergy, Unknown, 05/05/17) Floxcin (Verified Allergy, Unknown, 05/05/17) Propofol (Verified Allergy, Unknown, 05/05/17) Tetracycline (Verified Allergy, Unknown, 05/05/17) Tuna (Verified Allergy, Unknown, 05/05/17) Uncoded Allergies: BEANS (Allergy, Severe, 04/16/11) Past Medical History Diabetes COPD Hypertension Muscle wasting CAD-[place] in 10/2016 CVA left-sided weakness ESRD on PD Past Surgical History Tenckhoff catheter placement Cholecystectomy Tonsillectomy Appendectomy Reported Medications Reported Meds & Active Scripts Active Metoprolol Tartrate 25 Mg Tab 25 Mg PO Q12HR 30 Days Aspirin EC (Aspirin) 81 Mg Tabdr 81 Mg PO DAILY 30 Days Reported Colchicine 0.6 Mg Cap 0.6 Mg PO DAILY Skelaxin (Metaxalone) 800 Mg Tablet 1 Tab PO TID Lotrisone Topical (Betamethasone/Clotrimazole) 1-0.05% Cream 1 Applic TOPICAL BID Aspirin 325 Mg Tab 325 Mg PO BID Renvela (Sevelamer Carbonate) 800 Mg Tab 3,200 Mg PO TID Colace (Docusate Sodium) 100 Mg Capsule 1 Cap PO BID Sensipar (Cinacalcet) 60 Mg Tab 60 Mg PO BID Metoclopramide (Metoclopramide HCl) 5 Mg Tab 5 Mg PO TIDAC Sinemet (Carbidopa/Levodopa) 10-100 Mg Tab 1 Tab PO Q8HR Amiodarone (Amiodarone HCl) 200 Mg Tab 200 Mg PO BID Plavix (Clopidogrel Bisulfate) 75 Mg Tab 75 Mg PO DAILY Ultracet (Tramadol-Acetaminophen) 37.5-325 mg Tab 1 Tab PO QID PRN Flexeril (Cyclobenzaprine HCl) 5 Mg Tab 5 Mg PO DAILY PRN Bactroban Topical (Mupirocin) 2 % Cream 1 Applic TOPICAL TID APPLY TO PORT [place] (Docusate Calcium) 240 Mg Cap 240 Mg PO DAILY Lortab (Hydrocodone-Acetaminophen) 5-325 Mg Tab 1 Tab PO DAILY PRN Nitroglycerin SL (Nitroglycerin) 0.4 Mg Subl 0.4 Mg SL DIRECTED PRN ONE TABLET UNDER THE TONGUE NEEDED FOR CHEST PAIN, MAY REPEAT EVERY FIVE MINUTES FOR A TOTAL OF 3 DOSES OR CALL 911 IF NO RELIEF Sensipar (Cinacalcet) 90 Mg Tab 90 Mg PO DAILY Mirtazapine 15 Mg Tab 15 Mg PO HS Marinol (Dronabinol) 5 Mg Cap 5 Mg PO TIDPC Zetia (Ezetimibe) 10 Mg Tab 10 Mg PO HS Trazodone (Trazodone HCl) 300 Mg Tab 300 Mg PO HS Michelle-Jesse (B-Complex W/ C & Folic Acid) 1 Tab 1 Tab PO DAILY Renvela (Sevelamer Carbonate) 800 Mg Tab 2,400 Mg PO TIDPC TAKE WITH EACH MEAL Lipitor (Atorvastatin Calcium) 40 Mg Tab 40 Mg PO HS Diphenhydramine (Diphenhydramine HCl) 25 Mg Cap 25 Mg PO Q6HR PRN Januvia (Sitagliptin Phosphate) 50 Mg Tab 50 Mg PO DAILY Estazolam 2 Mg Tab 2 Mg PO HS Cymbalta DR (Duloxetine HCl) 60 Mg Capdr 60 Mg PO DAILY Lorazepam 0.5 Mg Tab 0.5 Mg PO Q8H Active Ordered Medications Current Medications Medications (Trade) Dose Ordered Sig/Melinda Route Start Time Stop Time Status Last Admin (NS Flush) 10 ml UNSCH PRN IV FLUSH 05/05/17 11:15 (Cordarone) 200 mg BID PO 05/05/17 21:00 (Ecotrin Ec) 81 mg DAILY PO 05/06/17 09:00 (Lipitor) 40 mg HS PO 05/05/17 21:00 (Sinemet 10-100 Mg) 1 tab Q8HR PO 05/05/17 14:00 05/05/17 14:00 (Cymbalta Dr) 60 mg DAILY PO 05/06/17 09:00 (Zetia) 10 mg HS PO 05/05/17 21:00 (Lopressor) 25 mg Q12HR PO 05/05/17 21:00 (Renvela) 2,400 mg TIDPC PO 05/05/17 13:30 05/05/17 17:06 (Nephrocaps) 1 cap DAILY PO 05/06/17 09:00 (Sensipar) 90 mg DAILY PO 05/06/17 09:00 (NS Flush) 2 ml UNSCH PRN IV FLUSH 05/05/17 13:15 (NS Flush) 2 ml BID IV FLUSH 05/05/17 21:00 (Zofran Inj) 4 mg Q6H PRN IVP 05/05/17 13:15 (Narcan Inj) 0.4 mg UNSCH PRN IV 05/05/17 13:15 (Fabiola-Colace) 1 tab BID PO 05/05/17 21:00 (Senokot) 17.2 mg Q12H PRN PO 05/05/17 13:15 (Dulcolax Supp) 10 mg DAILY PRN RECTAL 05/05/17 13:15 (Lactulose Liq) 30 ml DAILY PRN PO 05/05/17 13:15 (D50w (Vial) Inj) 50 ml UNSCH PRN IV 05/05/17 13:30 (Glucagon Inj) 1 mg UNSCH PRN OTHER 05/05/17 13:30 (Miralax) 17 gm DAILY PRN PO 05/05/17 13:30 (Tylenol) 650 mg Q6H PRN PO 05/05/17 14:15 ([place] 5-325 Mg) 1 tab Q4H PRN PO 05/05/17 14:15 ([place] 10-325 Mg) 1 tab Q4H PRN PO 05/05/17 14:15 05/05/17 17:06 (Morphine Inj) 4 mg Q3H PRN IV 05/05/17 14:15 05/05/17 19:03 (Narcan Inj) 0.4 mg UNSCH PRN IV 05/05/17 14:15 (Heparin Inj) 5,000 units Q12H SQ 05/05/17 16:00 05/05/17 17:03 (Catapres) 0.1 mg Q8HR PRN PO 05/05/17 16:00 (Plavix) 75 mg DAILY PO 05/06/17 09:00 Family History Noncontributory Social History Denies smoking or alcohol use Physical Exam Vital Signs Vital Signs Date Time Temp Pulse Resp B/P Pulse Ox O2 Delivery O2 Flow Rate FiO2 05/05/17 15:50 96.0 73 18 146/80 99 05/05/17 15:38 90 18 120/70 98 05/05/17 11:26 70 18 134/84 96 Room Air 05/05/17 10:26 97.9 69 20 116/58 97 Room Air 05/05/17 10:26 97 Room Air 05/05/17 10:16 74 20 99 Room Air 05/05/17 10:16 97.9 69 16 116/65 97 Room Air 05/05/17 10:01 97.9 73 20 99 Physical Exam GENERAL: Well-nourished, well-developed elderly patient. SKIN: Warm and dry. HEAD: Normocephalic. EYES: No scleral icterus. No injection or drainage. NECK: Supple, trachea midline. No JVD or lymphadenopathy. CARDIOVASCULAR: Regular rate and rhythm without murmurs, gallops, or rubs. RESPIRATORY: Breath sounds diminished at bases GASTROINTESTINAL: Abdomen soft, non-tender, nondistended. EXTREMITIES: No cyanosis, or edema. Right shoulder has redness and wound, lower extremity also has wounds NEUROLOGICAL: Awake, alert, and oriented x 3. Left side is weak Laboratory Laboratory Tests Test 05/05/17 05/05/17 05/05/17 05/05/17 11:00 14:30 15:30 17:10 White Blood Count 11.7 Red Blood Count 2.78 Hemoglobin 8.9 Hematocrit 26.9 Mean Corpuscular Volume 96.6 Mean Corpuscular Hemoglobin 31.9 Mean Corpuscular Hemoglobin 33.0 Concent Red Cell Distribution Width 17.0 Platelet Count 295 Mean Platelet Volume 10.9 Neutrophils (%) (Auto) 75.7 Lymphocytes (%) (Auto) 12.2 Monocytes (%) (Auto) 9.3 Eosinophils (%) (Auto) 2.4 Basophils (%) (Auto) 0.4 Neutrophils # (Auto) 8.8 Lymphocytes # (Auto) 1.4 Monocytes # (Auto) 1.1 Eosinophils # (Auto) 0.3 Basophils # (Auto) 0.0 CBC Comment DIFF FINAL Differential Comment Prothrombin Time 11.0 Prothromb Time International 1.0 Ratio Activated Partial 29.4 Thromboplast Time Sodium Level 138 136 Potassium Level 4.5 5.5 Chloride Level 110 112 Carbon Dioxide Level 16.4 13.6 Anion Gap 12 10 Blood Urea Nitrogen 95 89 Creatinine 9.92 9.55 Estimat Glomerular Filtration 4 4 Rate Random Glucose 80 71 Calcium Level 9.5 9.1 Magnesium Level 2.5 Total Creatine Kinase 301 274 Creatine Kinase MB 7.2 7.1 Creatine Kinase MB % 2.4 2.6 Troponin I 1.31 1.22 Urine Color YELLOW Urine Turbidity CLEAR Urine pH 5.0 Urine Specific [place] 1.012 Urine Protein 30 Urine Glucose (UA) NEG Urine Ketones NEG Urine Occult Blood TRACE Urine Nitrite NEG Urine Bilirubin NEG Urine Urobilinogen LESS THAN 2.0 Urine Leukocyte Esterase NEG Urine WBC 1 Urine Bacteria RARE Microscopic Urinalysis Comment CULT NOT INDICATED Test 05/05/17 18:47 Ammonia 11 Result Diagram: 05/05/17 1100 05/05/17 1710 Imaging Last Impressions Chest X-Ray 05/05/17 1014 Signed Impressions: Service Date/Time: Friday, May 05, 2017 10:39 - CONCLUSION: Moderate interstitial edema. Roque Rodriguez MD FACR Thoracic Spine X-Ray 05/05/17 0000 Signed Impressions: Service Date/Time: Friday, May 05, 2017 13:40 - CONCLUSION: Diffuse primary degenerative changes throughout the entire thoracic spine. Nadeem Christian MD Shoulder X-Ray 05/05/17 Signed Impressions: Service Date/Time: Friday, May 05, 2017 13:40 - CONCLUSION: 1. No acute fracture joint dislocation. 2. Evidence of shoulder impingement syndrome and calcific tendinitis. Nadeem Christian MD Lumbar Spine X-Ray 05/05/17 Signed Impressions: Service Date/Time: Friday, May 05, 2017 10:49 - CONCLUSION: 1. Moderate diffuse primary degenerative changes, disc degeneration and disc space narrowing throughout the lumbar spine. 2. Grade 1 anterior spondylolisthesis of L4 over L5 3. Mild aneurysmal dilatation of the infrarenal abdominal aorta at 3.1 cm. Nadeem Christian MD Hip and Pelvis X-Ray 05/05/17 Signed Impressions: Service Date/Time: Friday, May 05, 2017 10:49 - CONCLUSION: 1. Negative for fracture. 2. Extensive vascular calcifications. Roque Rodriguez MD FACR Head CT 05/05/17 Signed Impressions: Service Date/Time: Friday, May 05, 2017 11:09 - CONCLUSION: 1. No acute intracranial hemorrhage. 2. Old area of infarction involving the right mid parietal area. 3. No significant change compared to the prior exam from 2011 Nadeem Christian MD Assessment and Plan Problem List: (1) ESRD (end stage renal disease) on dialysis Plan: Patient is seen during peritoneal dialysis she is tolerating it well we will continue to monitor, potassium is 5.5, this should improve with dialysis Check BMP (2) Skin tear of right hand without complication Plan: Stable (3) DM (diabetes mellitus) Plan: Follow blood glucose (4) Elevated troponin I level Plan: Cardiology is following Problem Qualifiers (1) Skin tear of right hand without complication: Qualified Code: S61.411A - Skin tear of right hand without complication, initial encounter (2) DM (diabetes mellitus): Paul Schofield MD May 05, 2017 20:46
[2017-05-05] MEDS: DOCUSATE SODIUM 50 MG/SENNA 8.6 MG TAB PO SCH (21:00)
[2017-05-05] MEDS ORDERED: SODIUM CHLORIDE 0.9% FLUSH 10 ML FLUSH IV FLUSH SCH (21:00)
[2017-05-05 21:21] LABS: CKMB 6.9 NG/ML (0.5-3.6)
[2017-05-05] MEDS: METOPROLOL TARTRATE 25 MG TAB PO SCH (21:54)
[2017-05-05] MEDS: ATORVASTATIN 40 MG TAB PO SCH (21:54)
[2017-05-05] MEDS: AMIODARONE 200 MG TAB PO SCH (21:54)
[2017-05-05] MEDS: EZETIMIBE 10 MG TAB PO SCH (21:54)
[2017-05-05] MEDS: SODIUM CHLORIDE 0.9% FLUSH 10 ML FLUSH IV FLUSH SCH (21:55)
[2017-05-06] VITALS (11 sets, daily range): BP systolic 127–151; BP diastolic 61–76; PULSE 59–80; RESP 18–20; TEMP 97.2–97.7; O2SAT 92–100
[2017-05-06 00:41] LABS: LACTIC ACID GHOST NOT REPORTABLE
[2017-05-06] MEDS: ACETAMINOPHEN/HYDROcodone 325 MG/10 MG TAB PO PRN ×2 (02:36→13:56)
[2017-05-06] MEDS: HEPARIN SODIUM - SQ 10,000 UNITS/ML VIAL SQ SCH ×2 (04:55→16:51)
[2017-05-06] MEDS: CARBIDOPA/LEVODOPA 10 MG/100 MG TAB PO SCH ×3 (05:00→20:06)
[2017-05-06] MEDS: INSULIN ASPART SUPPLEMENTAL SCALE SQ SCH ×4 (06:18→21:00)
[2017-05-06 07:19] LABS: HEMATOCRIT 27.5 % (35.0-46.0); MEAN CELL VOLUME 97.9 FL (80.0-100.0); MEAN CORPUSCULAR HEMOGLOBIN 31.7 PG (27.0-34.0); MEAN CORPUSCULAR HGB CONC 32.4 % (32.0-36.0); PLATELET COUNT 284 TH/MM3 (150-450); RED BLOOD COUNT 2.81 MIL/MM3 (4.00-5.30); REVIEW FLAG FINAL; WHITE BLOOD COUNT 11.1 TH/MM3 (4.0-11.0)
[2017-05-06 07:32] LABS: BICARBONATE 18.6 MEQ/L (21.0-32.0); POTASSIUM 4.4 MEQ/L (3.5-5.1)
[2017-05-06] MEDS: SEVELAMER CARBONATE 800 MG TAB PO SCH ×3 (07:50→16:52)
[2017-05-06] MEDS: CINACALCET HYDROCHLORIDE 30 MG TAB PO SCH (07:50)
[2017-05-06] MEDS: DULoxetine HCl DR 60 MG CAP PO SCH (07:51)
[2017-05-06] MEDS: ASPIRIN EC 81 MG TABEC PO SCH (07:51)
[2017-05-06] MEDS: VITAMIN B CMPLX/VITC/FOLIC AC CAP PO SCH (07:51)
[2017-05-06] MEDS: AMIODARONE 200 MG TAB PO SCH ×2 (07:51→20:05)
[2017-05-06] MEDS: DOCUSATE SODIUM 50 MG/SENNA 8.6 MG TAB PO SCH ×2 (07:52→20:06)
[2017-05-06] MEDS: CLOPIDOGREL 75 MG TAB PO SCH (07:52)
[2017-05-06] MEDS: ONDANSETRON HCL 4 MG/2 ML VIAL IVP PRN ×2 (07:52→13:54)
[2017-05-06] MEDS: SODIUM CHLORIDE 0.9% FLUSH 10 ML FLUSH IV FLUSH SCH ×2 (07:58→21:00)
[2017-05-06] MEDS: METOPROLOL TARTRATE 25 MG TAB PO SCH ×2 (08:26→20:06)
--- NOTE | 2017-05-06 11:27 | HHI.PR ---
Subjective Remarks Patient reports feeling much better today. However still having generalized weakness. She is concerned about her ability to manage her dialysis equipment at home. Blood glucose down to 49 this morning but she remained asymptomatic. Objective Vitals Vital Signs Date Time Temp Pulse Resp B/P Pulse Ox O2 Delivery O2 Flow Rate FiO2 05/06/17 08:00 97.3 63 20 135/76 95 05/06/17 07:00 Room Air 05/06/17 04:00 Room Air 05/06/17 04:00 97.7 59 18 127/61 97 05/06/17 00:00 97.5 64 18 134/72 100 05/06/17 00:00 Room Air 05/05/17 23:57 99 21 05/05/17 20:00 66 05/05/17 20:00 97.4 79 18 144/75 97 05/05/17 20:00 Room Air 05/05/17 15:50 96.0 73 18 146/80 99 05/05/17 15:38 90 18 120/70 98 I/O 05/05/17 05/05/17 05/05/17 05/06/17 05/06/17 05/06/17 07:00 15:00 23:00 07:00 15:00 23:00 Intake Total 500 ml 240 ml 240 ml Output Total 500 ml 100 ml Balance 500 ml -260 ml 140 ml Intake Oral 240 ml 240 ml IV Total 500 ml Output Urine Total 500 ml 100 ml Result Diagram: 05/06/17 0537 05/06/17 0537 Imaging Last Impressions Chest X-Ray 05/05/17 1014 Signed Impressions: Service Date/Time: Friday, May 05, 2017 10:39 - CONCLUSION: Moderate interstitial edema. Roque Rodriguez MD FACR Thoracic Spine X-Ray 05/05/17 0000 Signed Impressions: Service Date/Time: Friday, May 05, 2017 13:40 - CONCLUSION: Diffuse primary degenerative changes throughout the entire thoracic spine. Nadeem Christian MD Shoulder X-Ray 05/05/17 0000 Signed Impressions: Service Date/Time: Friday, May 05, 2017 13:40 - CONCLUSION: 1. No acute fracture joint dislocation. 2. Evidence of shoulder impingement syndrome and calcific tendinitis. Nadeem Christian MD Lumbar Spine X-Ray 7/3/17 0000 Signed Impressions: Service Date/Time: Friday, May 05, 2017 10:49 - CONCLUSION: 1. Moderate diffuse primary degenerative changes, disc degeneration and disc space narrowing throughout the lumbar spine. 2. Grade 1 anterior spondylolisthesis of L4 over L5 3. Mild aneurysmal dilatation of the infrarenal abdominal aorta at 3.1 cm. Nadeem Christian MD Hip and Pelvis X-Ray 05/05/17 Signed Impressions: Service Date/Time: Friday, May 05, 2017 10:49 - CONCLUSION: 1. Negative for fracture. 2. Extensive vascular calcifications. Roque Rodriguez MD FACR Head CT 05/05/17 Signed Impressions: Service Date/Time: Friday, May 05, 2017 11:09 - CONCLUSION: 1. No acute intracranial hemorrhage. 2. Old area of infarction involving the right mid parietal area. 3. No significant change compared to the prior exam from 2011 Nadeem Christian MD Objective Remarks GENERAL: Elderly female in no apparent distress. CARDIOVASCULAR: Normal rate and regular rhythm without murmurs, gallops, or rubs. RESPIRATORY: Good respiratory efforts. Breath sounds equal and clear to auscultation bilaterally. GASTROINTESTINAL: Abdomen soft, non-tender, non-distended. Normal active bowel sounds MUSCULOSKELETAL: Extremities without cyanosis, or edema. NEURO: Alert & Oriented x4 to person, place, time, situation. Generalized weakness PSYCH: Appropriate mood and affect. A/P Problem List: (1) Physical deconditioning ICD Code: R53.81 Status: Acute (2) Peritoneal dialysis status ICD Code: Z99.2 Status: Acute (3) Weakness ICD Code: R53.1 Status: Acute (4) DM (diabetes mellitus) ICD Code: E11.9 Status: Chronic Assessment and Plan 71-year-old female admitted with: End-stage renal disease on peritoneal dialysis: Patient missed 2 days of dialysis because she was too weak to self administer dialysis. Nephrology following. Continue peritoneal dialysis. Hypokalemia resolved. Unclear the patient will be able to continue to do dialysis on her own or she will need placement at a long-term facility or an assisted living facility. - Dialysate for culture given mild leukocytosis/abdominal pain/weakness Elevated troponin Known history of coronary artery disease. Patient was evaluated by cardiology. She refused any invasive ischemic workup. Cardiology recommends continuing medical management with Plavix, beta flor, and statin. Physical deconditioning: Associated with fall. Uremia probably contributing. Imaging unremarkable for any acute fractures. -Pain control [place] and morphine -Consider PT Diabetes: Hypoglycemia this morning, asymptomatic. Continue to Hold home oral medications -Low dose sliding scale Check hemoglobin A1c. Last hemoglobin A1c was 5.2. Consider discontinuing oral hypoglycemic agents on discharge. Skin tear of right hand without complication Superficial laceration after fall. No signs of infections -Wound care Heparin for DVT proph Problem Qualifiers (1) DM (diabetes mellitus): Radha Falk MD May 06, 2017 11:27
--- NOTE | 2017-05-06 11:45 | PD.PN.STU ---
Subjective Remarks Patient is a 71 year old woman with a pertinent hx of ESRD on peritoneal dialysis, DM2, and CAD admitted after falling the evening of 05/04/2017 and being found by a neighbor the morning of 05/05/2017. She does not recall the nature of her immediate injuries. She complained of shoulder, arm, and hip pain. She did hit her head. She claims she has fallen several times in the past week due to weakness. She had not dialyzed for 2 days prior due to weakness and difficulty moving the dialysis bags. She lives alone. Initial labs showed elevated troponins in the absence of chest pain or discomfort. Cardiology consult determined the risk of true cardiac event being low and intervention unlikely due to ESRD. Nephrology consult determined the need for dialysis to correct her elevated creatine and hyperkalemia. After being dialyzed hyperkalemia resolved to 4.4 with decrease of creatinine to 7.9 from 9.9. Radiology determined shoulder, arm, back, and hip pain not due to fracture, but did note arthritic changes as well as an infrarenal 3.1cm aortic aneurism. 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 Today the patient states she feels relatively better than her presentation yesterday, but still feels "weak". She is concerned with her ability to manage her dialysis equipment. Objective Vitals Vital Signs Date Time Temp Pulse Resp B/P Pulse Ox O2 Delivery O2 Flow Rate FiO2 05/06/17 08:00 97.3 63 20 135/76 95 05/06/17 07:00 Room Air 05/06/17 04:00 Room Air 05/06/17 04:00 97.7 59 18 127/61 97 05/06/17 00:00 97.5 64 18 134/72 100 05/06/17 00:00 Room Air 05/05/17 23:57 99 21 05/05/17 20:00 66 05/05/17 20:00 97.4 79 18 144/75 97 05/05/17 20:00 Room Air 05/05/17 15:50 96.0 73 18 146/80 99 05/05/17 15:38 90 18 120/70 98 05/05/17 11:26 70 18 134/84 96 Room Air I/O 05/05/17 05/05/17 05/05/17 05/06/174/17 7/4/17 07:00 15:00 23:00 07:00 15:00 23:00 Intake Total 500 ml 240 ml 240 ml Output Total 500 ml 100 ml Balance 500 ml -260 ml 140 ml Intake Oral 240 ml 240 ml IV Total 500 ml Output Urine Total 500 ml 100 ml Result Diagram: 05/06/17 0537 05/06/17 0537 Other Results Laboratory Tests Test 05/05/17 05/05/17 05/05/17 05/05/17 11:00 14:30 15:30 17:10 White Blood Count 11.7 TH/MM3 (4.0-11.0) Red Blood Count 2.78 MIL/MM3 (4.00-5.30) Hemoglobin 8.9 GM/DL (11.6-15.3) Hematocrit 26.9 % (35.0-46.0) Mean Corpuscular Volume 96.6 FL (80.0-100.0) Mean Corpuscular Hemoglobin 31.9 PG (27.0-34.0) Mean Corpuscular Hemoglobin 33.0 % Concent (32.0-36.0) Red Cell Distribution Width 17.0 % (11.6-17.2) Platelet Count 295 TH/MM3 (150-450) Mean Platelet Volume 10.9 FL (7.0-11.0) Neutrophils (%) (Auto) 75.7 % (16.0-70.0) Lymphocytes (%) (Auto) 12.2 % (9.0-44.0) Monocytes (%) (Auto) 9.3 % (0.0-8.0) Eosinophils (%) (Auto) 2.4 % (0.0-4.0) Basophils (%) (Auto) 0.4 % (0.0-2.0) Neutrophils # (Auto) 8.8 TH/MM3 (1.8-7.7) Lymphocytes # (Auto) 1.4 TH/MM3 (1.0-4.8) Monocytes # (Auto) 1.1 TH/MM3 (0-0.9) Eosinophils # (Auto) 0.3 TH/MM3 (0-0.4) Basophils # (Auto) 0.0 TH/MM3 (0-0.2) CBC Comment DIFF FINAL Differential Comment Prothrombin Time 11.0 SEC (9.8-11.6) Prothromb Time International 1.0 RATIO Ratio Activated Partial 29.4 SEC Thromboplast Time (24.3-30.1) Sodium Level 138 MEQ/L 136 MEQ/L (136-145) (136-145) Potassium Level 4.5 MEQ/L 5.5 MEQ/L (3.5-5.1) (3.5-5.1) Chloride Level 110 MEQ/L 112 MEQ/L (98-107) (98-107) Carbon Dioxide Level 16.4 MEQ/L 13.6 MEQ/L (21.0-32.0) (21.0-32.0) Anion Gap 12 MEQ/L (5-15) 10 MEQ/L (5-15) Blood Urea Nitrogen 95 MG/DL (7-18) 89 MG/DL (7-18) Creatinine 9.92 MG/DL 9.55 MG/DL (0.50-1.00) (0.50-1.00) Estimat Glomerular Filtration 4 ML/MIN (>89) 4 ML/MIN (>89) Rate Random Glucose 80 MG/DL 71 MG/DL (74-106) (74-106) Calcium Level 9.5 MG/DL 9.1 MG/DL (8.5-10.1) (8.5-10.1) Magnesium Level 2.5 MG/DL (1.5-2.5) Total Creatine Kinase 301 U/L 274 U/L (26-192) (26-192) Creatine Kinase MB 7.2 NG/ML 7.1 NG/ML (0.5-3.6) (0.5-3.6) Creatine Kinase MB % 2.4 % (0.0-4.0) 2.6 % (0.0-4.0) Troponin I 1.31 NG/ML 1.22 NG/ML (0.02-0.05) (0.02-0.05) Urine Color YELLOW (YELLW/STRAW) Urine Turbidity CLEAR (CLEAR) Urine pH 5.0 (5.0-8.5) Urine Specific [place] 1.012 (1.002-1.035) Urine Protein 30 mg/dL (NEG-TRACE) Urine Glucose (UA) NEG mg/dL (NEG) Urine Ketones NEG mg/dL (NEG) Urine Occult Blood TRACE (NEG) Urine Nitrite NEG (NEG) Urine Bilirubin NEG (NEG) Urine Urobilinogen LESS THAN 2.0 MG/DL (LESS THAN 2.0) Urine Leukocyte Esterase NEG (NEG) Urine WBC 1 /hpf (0-5) Urine Bacteria RARE /hpf (NONE) Microscopic Urinalysis Comment CULT NOT INDICATED Test 05/05/17 05/05/17 05/06/17 05/06/17 18:47 22:34 01:10 05:37 Ammonia 11 MCMOL/L (11-32) Total Creatine Kinase 230 U/L (26-192) Creatine Kinase MB 6.9 NG/ML (0.5-3.6) Creatine Kinase MB % 3.0 % (0.0-4.0) Troponin I 1.20 NG/ML (0.02-0.05) Lactic Acid Level 2.5 mmol/L 2.5 mmol/L (0.4-2.0) (0.4-2.0) White Blood Count 11.1 TH/MM3 (4.0-11.0) Red Blood Count 2.81 MIL/MM3 (4.00-5.30) Hemoglobin 8.9 GM/DL (11.6-15.3) Hematocrit 27.5 % (35.0-46.0) Mean Corpuscular Volume 97.9 FL (80.0-100.0) Mean Corpuscular Hemoglobin 31.7 PG (27.0-34.0) Mean Corpuscular Hemoglobin 32.4 % Concent (32.0-36.0) Red Cell Distribution Width 17.0 % (11.6-17.2) Platelet Count 284 TH/MM3 (150-450) Mean Platelet Volume 10.5 FL (7.0-11.0) Sodium Level 139 MEQ/L (136-145) Potassium Level 4.4 MEQ/L (3.5-5.1) Chloride Level 107 MEQ/L (98-107) Carbon Dioxide Level 18.6 MEQ/L (21.0-32.0) Anion Gap 13 MEQ/L (5-15) Blood Urea Nitrogen 70 MG/DL (7-18) Creatinine 7.97 MG/DL (0.50-1.00) Estimat Glomerular Filtration 5 ML/MIN (>89) Rate Random Glucose 49 MG/DL (74-106) Calcium Level 9.0 MG/DL (8.5-10.1) Imaging Last 72 hours Impressions Chest X-Ray 05/05/17 1014 Signed Impressions: Service Date/Time: Friday, May 05, 2017 10:39 - CONCLUSION: Moderate interstitial edema. Roque Rodriguez MD FACR Thoracic Spine X-Ray 05/05/17 0000 Signed Impressions: Service Date/Time: Friday, May 05, 2017 13:40 - CONCLUSION: Diffuse primary degenerative changes throughout the entire thoracic spine. Nadeem Christian MD Shoulder X-Ray 05/05/17 0000 Signed Impressions: Service Date/Time: Friday, May 05, 2017 13:40 - CONCLUSION: 1. No acute fracture joint dislocation. 2. Evidence of shoulder impingement syndrome and calcific tendinitis. Nadeem Christian MD Lumbar Spine X-Ray 05/05/17 0000 Signed Impressions: Service Date/Time: Friday, May 05, 2017 10:49 - CONCLUSION: 1. Moderate diffuse primary degenerative changes, disc degeneration and disc space narrowing throughout the lumbar spine. 2. Grade 1 anterior spondylolisthesis of L4 over L5 3. Mild aneurysmal dilatation of the infrarenal abdominal aorta at 3.1 cm. Nadeem Christian MD Hip and Pelvis X-Ray 05/05/17 0000 Signed Impressions: Service Date/Time: Friday, May 05, 2017 10:49 - CONCLUSION: 1. Negative for fracture. 2. Extensive vascular calcifications. Roque Rodriguez MD FACR Head CT 05/05/17 0000 Signed Impressions: Service Date/Time: Friday, May 05, 2017 11:09 - CONCLUSION: 1. No acute intracranial hemorrhage. 2. Old area of infarction involving the right mid parietal area. 3. No significant change compared to the prior exam from 2011 Nadeem Christian MD Objective Remarks GENERAL: Frail. SKIN: Warm and dry. HEAD: Normocephalic, slight bruising on left forehead EYES: No scleral icterus. No injection or drainage. NECK: Supple, trachea midline. No JVD or lymphadenopathy. CARDIOVASCULAR: Regular rate and rhythm without murmurs, gallops, or rubs. RESPIRATORY: Breath sounds equal bilaterally. No accessory muscle use. GASTROINTESTINAL: Abdomen soft, non-tender, nondistended. MUSCULOSKELETAL: No cyanosis, or edema. Ecchymosis noted throughout areas of fall impact, notably right shoulder, right hand, right arm, and left hip. BACK: Nontender without obvious deformity. No CVA tenderness. Diffuse back pain in the lumbar region. EXTREMITIES: Medications and IVs Allergies Coded Allergies Type Severity Reaction Last Updated Verified Ancef Allergy Severe 05/05/17 Yes Bran Allergy Severe Anaphylaxis 05/05/17 Yes Cephalosporins Allergy Severe 05/05/17 Yes Contrast Media Allergy Severe 05/05/17 Yes Keflex Allergy Severe 05/05/17 Yes Penicillin Allergy Severe 05/05/17 Yes Percocet Allergy Severe 05/05/17 Yes Percodan Allergy Severe 05/05/17 Yes Sulfa Allergy Severe 05/05/17 Yes Talwin Allergy Severe 05/05/17 Yes White Fish Allergy Severe ANYPHYLAXIS 05/05/17 Yes Amoxicillin Allergy Unknown 05/05/17 Yes Floxcin Allergy Unknown 05/05/17 Yes Propofol Allergy Unknown 05/05/17 Yes Tetracycline Allergy Unknown 05/05/17 Yes Tuna Allergy Unknown 05/05/17 Yes Uncoded Allergies Type Severity Reaction Last Updated Verified BEANS Allergy Severe 04/16/11 Active Scripts Medications Dose Route/Sig Days Date Category Dose Instructions Colchicine 0.6 Mg Cap 0.6 Mg PO DAILY 05/05/17 Reported Skelaxin (Metaxalone) 800 Mg Tablet 1 Tab PO TID 05/05/17 Reported Lotrisone Topical (Betamethasone/Clotrimazole) 1-0.05% Cream 1 Applic TOPICAL BID 05/05/17 Reported Aspirin 325 Mg Tab 325 Mg PO BID 05/05/17 Reported Renvela (Sevelamer Carbonate) 800 Mg Tab 3,200 Mg PO TID 05/05/17 Reported Colace (Docusate Sodium) 100 Mg Capsule 1 Cap PO BID 05/05/17 Reported Sensipar (Cinacalcet) 60 Mg Tab 60 Mg PO BID 05/05/17 Reported Metoclopramide (Metoclopramide HCl) 5 Mg Tab 5 Mg PO TIDAC 05/05/17 Reported Sinemet (Carbidopa/Levodopa) 10-100 Mg Tab 1 Tab PO Q8HR 05/05/17 Reported Amiodarone (Amiodarone HCl) 200 Mg Tab 200 Mg PO BID 10/15/16 Reported Plavix (Clopidogrel Bisulfate) 75 Mg Tab 75 Mg PO DAILY 10/14/16 Reported Metoprolol Tartrate 25 Mg Tab 25 Mg PO Q12HR 30 09/16/16 Rx Aspirin EC (Aspirin) 81 Mg Tabdr 81 Mg PO DAILY 30 09/16/16 Rx Ultracet (Tramadol-Acetaminophen) 37.5-325 mg Tab 1 Tab PO QID PRN 09/03/16 Reported Flexeril (Cyclobenzaprine HCl) 5 Mg Tab 5 Mg PO DAILY PRN 09/03/16 Reported Bactroban Topical (Mupirocin) 2 % Cream 1 Applic TOPICAL TID 09/03/16 Reported APPLY TO PORT [place] (Docusate Calcium) 240 Mg Cap 240 Mg PO DAILY 09/03/16 Reported Lortab (Hydrocodone-Acetaminophen) 5-325 Mg Tab 1 Tab PO DAILY PRN 09/03/16 Reported Nitroglycerin SL (Nitroglycerin) 0.4 Mg Subl 0.4 Mg SL DIRECTED PRN 09/03/16 Reported ONE TABLET UNDER THE TONGUE NEEDED FOR CHEST PAIN, MAY REPEAT EVERY FIVE MINUTES FOR A TOTAL OF 3 DOSES OR CALL 911 IF NO RELIEF Sensipar (Cinacalcet) 90 Mg Tab 90 Mg PO DAILY 09/03/16 Reported Mirtazapine 15 Mg Tab 15 Mg PO HS 09/03/16 Reported Marinol (Dronabinol) 5 Mg Cap 5 Mg PO TIDPC 09/03/16 Reported Zetia (Ezetimibe) 10 Mg Tab 10 Mg PO HS 09/03/16 Reported Trazodone (Trazodone HCl) 300 Mg Tab 300 Mg PO HS 09/03/16 Reported Michelle-Jesse (B-Complex W/ C & Folic Acid) 1 Tab 1 Tab PO DAILY 09/03/16 Reported Renvela (Sevelamer Carbonate) 800 Mg Tab 2,400 Mg PO TIDPC 09/03/16 Reported TAKE WITH EACH MEAL Lipitor (Atorvastatin Calcium) 40 Mg Tab 40 Mg PO HS 09/03/16 Reported Diphenhydramine (Diphenhydramine HCl) 25 Mg Cap 25 Mg PO Q6HR PRN 09/03/16 Reported Januvia (Sitagliptin Phosphate) 50 Mg Tab 50 Mg PO DAILY 09/03/16 Reported Estazolam 2 Mg Tab 2 Mg PO HS 09/03/[address] (Duloxetine HCl) 60 Mg Capdr 60 Mg PO DAILY 09/03/16 Reported Lorazepam 0.5 Mg Tab 0.5 Mg PO Q8H 09/03/16 Reported A/P Assessment and Plan 1) Recurrent Falls No evidence of fracture of cranial hemorrhage Evaluation of possible environmental risk factors contributing Discussion of home health visits to determine if patient can manage her peritoneal dialysis with discussion of assisted living 2) ESRD Continue peritoneal dialysis, pending evaluation of capacity to do so Follow up with established woodworking machine offbearer 3) Weakness Likely due to electrolyte imbalances from dialysis and ESRD Monitor with nephrology and primary if weakness persists Xiomara Boothe M3 May 06, 2017 11:45
--- NOTE | 2017-05-06 13:21 | EKG ---
Date Performed: 05/05/2017 Time Performed: 18:37:06 PTAGE: 71 years EKG: Sinus rhythm POSSIBLE LEFT ATRIAL ENLARGEMENT LOW QRS VOLTAGE IN EXTREMITY LEADS NONSPECIFIC T-WAVE ABNORMALITY B ORDERLINE ECG PREVIOUS TRACING : 05/05/2017 14.24 Compared to prior tracing no significant change DOCTOR: Tian Beckre Interpretating Date/Time 05/06/2017 13:16:00
--- NOTE | 2017-05-06 13:28 | EKG ---
Date Performed: 05/05/2017 Time Performed: 14:24:32 PTAGE: 71 years EKG: Sinus rhythm POSSIBLE LEFT ATRIAL ENLARGEMENT NONSPECIFIC T-WAVE ABNORMALITY BORDERLINE ECG INTERPRETATION BASED ON A DEFAULT AGE OF 38 YEARS NO PREVIOUS TRACING DOCTOR: Tian Becker Interpretating Date/Time 05/06/2017 13:21:25
--- NOTE | 2017-05-06 16:21 | HHI.NPPN ---
Subjective History of Present Illness 71-year-old with history of fall and injury to right shoulder, ESRD on peritoneal dialysis Additional Remarks c/o nausea Review of Systems General Constitutional: Fatigue Objective Data Data 05/05/17 05/06/17 19:00 07:00 Intake Total 500 ml 480 ml Output Total 600 ml Balance 500 ml -120 ml Intake Oral 480 ml IV Total 500 ml Output Urine Total 600 ml Vital Signs Date Time Temp Pulse Resp B/P Pulse Ox O2 Delivery O2 Flow Rate FiO2 05/06/17 13:48 96 05/06/17 12:00 97.2 61 20 151/63 92 05/06/17 11:00 97.3 63 20 135/76 95 05/06/17 09:00 61 05/06/17 08:00 97.3 63 20 135/76 95 05/06/17 07:00 Room Air 05/06/17 04:00 Room Air 05/06/17 04:00 97.7 59 18 127/61 97 05/06/17 00:00 97.5 64 18 134/72 100 05/06/17 00:00 Room Air 05/05/17 23:57 99 21 05/05/17 20:00 66 05/05/17 20:00 97.4 79 18 144/75 97 05/05/17 20:00 Room Air -: 05/06/17 0537 05/06/17 0537 Microbiology 05/05/17 Aerobic Blood Culture - Preliminary, Resulted NO GROWTH IN 1 DAY 05/05/17 Anaerobic Blood Culture - Final, Resulted QNS - SEE AEROBE REPORT 05/05/17 Aerobic Blood Culture - Preliminary, Resulted NO GROWTH IN 1 DAY 05/05/17 Anaerobic Blood Culture - Final, Resulted QNS - SEE AEROBE REPORT 05/06/17 Gram Stain, Received Pending 05/06/17 Body Fluid Culture, Received Pending Physical Exam General Appearance: Well Developed Neck Neck Exam: Neck Supple Pulmonary Resp Exam: Clear Bilaterally, Breath Sounds Equal Cardiology CV Exam: Regular, Normal Sinus Rhythm Gastrointestinal/Abdomen GI Exam: Soft, Non-Tender, Bowel Sounds Present Extremeties Extremities Exam: No Edema Assessment/Plan Problem List: (1) ESRD (end stage renal disease) on dialysis Plan: Patient is seen during peritoneal dialysis she is tolerating it well ultrafiltration 859 nausea received Zofran rt hand hurts skin tear Follows with Dr. Hoskote Will need to Procrit ordered 20 k (2) Skin tear of right hand without complication Plan: Stable (3) DM (diabetes mellitus) Plan: Follow blood glucose (4) Elevated troponin I level Plan: Cardiology is following Problem Qualifiers (1) Skin tear of right hand without complication: Qualified Code: S61.411A - Skin tear of right hand without complication, initial encounter (2) DM (diabetes mellitus): Paul Schofield MD May 06, 2017 16:21
[2017-05-06] MEDS ORDERED: EPOETIN ALFA 20,000 UNITS/ML VIAL SQ ONE (16:30)
[2017-05-06] MEDS: ATORVASTATIN 40 MG TAB PO SCH (20:06)
[2017-05-06] MEDS: EZETIMIBE 10 MG TAB PO SCH (20:06)
[2017-05-07] VITALS (8 sets, daily range): BP systolic 133–144; BP diastolic 60–78; PULSE 56–83; RESP 17–20; TEMP 97.2–97.7; O2SAT 92–100
[2017-05-07] MEDS: ONDANSETRON HCL 4 MG/2 ML VIAL IVP PRN ×3 (04:41→21:47)
[2017-05-07] MEDS: HEPARIN SODIUM - SQ 10,000 UNITS/ML VIAL SQ SCH ×2 (04:44→15:35)
[2017-05-07] MEDS: CARBIDOPA/LEVODOPA 10 MG/100 MG TAB PO SCH ×3 (04:44→21:46)
[2017-05-07] MEDS: MORPHINE SULFATE 4 MG/ML INJ IV PRN (05:08)
[2017-05-07] MEDS: INSULIN ASPART SUPPLEMENTAL SCALE SQ SCH ×4 (07:00→21:56)
[2017-05-07] MEDS: SEVELAMER CARBONATE 800 MG TAB PO SCH ×3 (09:30→18:30)
[2017-05-07] MEDS: SODIUM CHLORIDE 0.9% FLUSH 10 ML FLUSH IV FLUSH SCH ×2 (10:30→21:45)
[2017-05-07] MEDS: CLOPIDOGREL 75 MG TAB PO SCH (10:32)
[2017-05-07] MEDS: METOPROLOL TARTRATE 25 MG TAB PO SCH ×2 (10:32→21:46)
[2017-05-07] MEDS: ASPIRIN EC 81 MG TABEC PO SCH (10:32)
[2017-05-07] MEDS: VITAMIN B CMPLX/VITC/FOLIC AC CAP PO SCH (10:32)
[2017-05-07] MEDS: DULoxetine HCl DR 60 MG CAP PO SCH (10:33)
[2017-05-07] MEDS: AMIODARONE 200 MG TAB PO SCH ×2 (10:33→21:45)
[2017-05-07] MEDS: CINACALCET HYDROCHLORIDE 30 MG TAB PO SCH (10:33)
--- NOTE | 2017-05-07 11:15 | HHI.NPPN ---
Subjective General Problems: Anemia Renal Failure: Chronic, End Stage Renal Disease Interval History PD going well. Seen during 2D echo, she was actively vomiting during my exam. ( Flory Duarte) Review of Systems General Constitutional: Fatigue (Flory Duarte) Gastrointestinal Gastrointestinal: Nausea & Vomiting (Flory Duarte) Musculoskeletal MS: Pain/Stiffness MS Remarks right shoulder (Flory Duarte) Objective Data Data 05/06/17 05/07/17 19:00 07:00 Intake Total 480 ml 600 ml Output Total 1309 ml 400 ml Balance -829 ml 200 ml Intake Oral 480 ml 600 ml Output Urine Total 450 ml 400 ml Peritoneal Fluid 859 ml # Bowel Movements 1 Vital Signs Date Time Temp Pulse Resp B/P Pulse Ox O2 Delivery O2 Flow Rate FiO2 05/07/17 08:00 97.7 83 20 136/61 92 05/07/17 05:21 18 05/07/17 04:00 97.6 58 17 142/70 100 05/07/17 00:00 97.7 64 17 144/72 97 05/06/17 23:58 78 05/06/17 22:27 80 05/06/17 22:25 Room Air 05/06/17 20:00 97.5 63 18 151/75 100 05/06/17 16:00 97.4 63 20 140/67 93 05/06/17 13:48 96 05/06/17 12:00 97.2 61 20 151/63 92 (Flory Duarte) -: 05/06/17 0537 05/06/17 0537 Microbiology 05/06/17 Gram Stain - Final, Resulted 05/06/17 Body Fluid Culture, Resulted Pending Imaging Last 72 hours Impressions Chest X-Ray 05/05/17 1014 Signed Impressions: Service Date/Time: Friday, May 05, 2017 10:39 - CONCLUSION: Moderate interstitial edema. Roque Rodriguez MD FACR Thoracic Spine X-Ray 05/05/17 0000 Signed Impressions: Service Date/Time: Friday, May 05, 2017 13:40 - CONCLUSION: Diffuse primary degenerative changes throughout the entire thoracic spine. Nadeem Christian MD Shoulder X-Ray 05/05/17 0000 Signed Impressions: Service Date/Time: Friday, May 05, 2017 13:40 - CONCLUSION: 1. No acute fracture joint dislocation. 2. Evidence of shoulder impingement syndrome and calcific tendinitis. Nadeem Christian MD Lumbar Spine X-Ray 05/05/17 0000 Signed Impressions: Service Date/Time: Friday, May 05, 2017 10:49 - CONCLUSION: 1. Moderate diffuse primary degenerative changes, disc degeneration and disc space narrowing throughout the lumbar spine. 2. Grade 1 anterior spondylolisthesis of L4 over L5 3. Mild aneurysmal dilatation of the infrarenal abdominal aorta at 3.1 cm. Nadeem Christian MD Hip and Pelvis X-Ray 05/05/17 0000 Signed Impressions: Service Date/Time: Friday, May 05, 2017 10:49 - CONCLUSION: 1. Negative for fracture. 2. Extensive vascular calcifications. Roque Rodriguez MD FACR Head CT 05/05/17 0000 Signed Impressions: Service Date/Time: Friday, May 05, 2017 11:09 - CONCLUSION: 1. No acute intracranial hemorrhage. 2. Old area of infarction involving the right mid parietal area. 3. No significant change compared to the prior exam from 2011 Nadeem Christian MD Tubes & Lines: Moss (Flory Duarte) Physical Exam General Appearance: Well Developed, Comfortable, Malnourished (Flory Duarte B. QUALITY IMPROVEMENT MANAGER) Throat Throat Exam: Oral Mucosa [place] & Moist (Flory Duarte B. QUALITY IMPROVEMENT MANAGER) Neck Neck Exam: Neck Supple (Flory Duarte B. QUALITY IMPROVEMENT MANAGER) Pulmonary Resp Exam: Clear Bilaterally, Breath Sounds Equal (Flory Duarte B. QUALITY IMPROVEMENT MANAGER) Cardiology CV Exam: Regular, Normal Sinus Rhythm (Flory Duarte B. QUALITY IMPROVEMENT MANAGER) Gastrointestinal/Abdomen GI Exam: Soft, Non-Tender, Bowel Sounds Present (Flory Duarte BDebby RANDOLPH) Musculoskeletal MS Exam: Joints Intact, Normal Tone, Atrophy MS Remarks right shoulder ecchymosis and laceration s/p fall (Flory Duarte B. QUALITY IMPROVEMENT MANAGER) Integumentary Skin Exam: Warm, Dry, Lesion(s) (Flory Duarte BDebby RANDOLPH) Extremeties Extremities Exam: No Edema, Pedal Pulses Palpable (Flory Duarte) Neurologic Neuro Exam: Alert, Awake, Oriented (Flory Duarte) Psychiatric Psych Exam: Appropriate Responses (Flory Duarte) Assessment/Plan Discussed Condition With: Patient Assessment Summary: Anemia of CKD, Hypertension, End Stage Renal Disease Problem List: (1) ESRD (end stage renal disease) on dialysis Plan: Continue nightly PD, she had 1180 UF last night no acute electrolyte concerns begin oral bicarbonate no dietary protein restriction avoid IVF renal panel in am (2) Skin tear of right hand without complication Plan: due to fall continue wound care work up for fall in progress (3) DM (diabetes mellitus) Plan: she has been hypoglycemic has had poor oral intake, loss of appetite insulin if needed for blood sugar > 150 mg/dL (4) Elevated troponin I level Plan: Cardiology has evaluated continue beta flor, Plavix, ASA, statin Echo ordered to evaluate LVEF (5) Metabolic bone disease Plan: continue Renvela with meals, obtain phosphorus level intermittently continue Sensipar for secondary hyperparathyroidism (Flory Duarte) Plan patient was seen and examined. Continue PD. Symptomatic management of vomiting/ nausea. Volume status is acceptable. (Mahamed Pedersen MD) Problem Qualifiers (1) Skin tear of right hand without complication: Qualified Code: S61.411A - Skin tear of right hand without complication, initial encounter (2) DM (diabetes mellitus): Flory Duarte May 07, 2017 11:15 Mahamed Pedersen MD May 07, 2017 17:32
--- NOTE | 2017-05-07 11:25 | HHI.PR ---
Subjective Remarks Patient had nausea, vomiting earlier today. Still with some mild nausea after medication. No abdominal pain. She reports no bowel movement for the past 4 days. Objective Vitals Vital Signs Date Time Temp Pulse Resp B/P Pulse Ox O2 Delivery O2 Flow Rate FiO2 05/07/17 08:00 97.7 83 20 136/61 92 05/07/17 05:21 18 05/07/17 04:00 97.6 58 17 142/70 100 05/07/17 00:00 97.7 64 17 144/72 97 05/06/17 23:58 78 05/06/17 22:27 80 05/06/17 22:25 Room Air 05/06/17 20:00 97.5 63 18 151/75 100 05/06/17 16:00 97.4 63 20 140/67 93 05/06/17 13:48 96 05/06/17 12:00 97.2 61 20 151/63 92 I/O 05/06/17 05/06/17 05/06/17 05/07/17 05/07/17 05/07/17 07:00 15:00 23:00 07:00 15:00 23:00 Intake Total 240 ml 480 ml 200 ml 400 ml Output Total 100 ml 1309 ml 300 ml 100 ml 1186 ml Balance 140 ml -829 ml -100 ml 300 ml -1186 ml Intake Oral 240 ml 480 ml 200 ml 400 ml Output Urine Total 100 ml 450 ml 300 ml 100 ml Peritoneal Fluid 859 ml 1186 ml # Bowel Movements 1 Result Diagram: 05/06/17 0537 05/06/17 0537 Objective Remarks GENERAL: Elderly female in no apparent distress. CARDIOVASCULAR: Normal rate and regular rhythm without murmurs, gallops, or rubs. RESPIRATORY: Good respiratory efforts. Breath sounds equal and clear to auscultation bilaterally. GASTROINTESTINAL: Abdomen soft, non-tender, non-distended. Normal active bowel sounds MUSCULOSKELETAL: Extremities without cyanosis, or edema. NEURO: Alert & Oriented x4 to person, place, time, situation. Generalized weakness PSYCH: Appropriate mood and affect. A/P Problem List: (1) Physical deconditioning ICD Code: R53.81 Status: Acute (2) Peritoneal dialysis status ICD Code: Z99.2 Status: Acute (3) Weakness ICD Code: R53.1 Status: Acute (4) DM (diabetes mellitus) ICD Code: E11.9 Status: Chronic Assessment and Plan 71-year-old female admitted with: End-stage renal disease on peritoneal dialysis: Patient missed 2 days of dialysis because she was too weak to self administer dialysis. Nephrology following. Continue peritoneal dialysis. Hypokalemia resolved. Unclear the patient will be able to continue to do dialysis on her own, likely she will need placement at a long-term facility. - Dialysate for culture given mild leukocytosis/abdominal pain/weakness Elevated troponin Known history of coronary artery disease. Patient was evaluated by cardiology. She refused any invasive ischemic workup. Cardiology recommends continuing medical management with Plavix, beta flor, and statin. Physical deconditioning: Associated with fall. Uremia probably contributing. Imaging unremarkable for any acute fractures. -Pain control [place] and morphine -Continue PT, will need SNF Diabetes: Patient had an episode of Hypoglycemia. Hemoglobin A1c 4.9, I do not believe the patient warrant medications at this point. Will DC Accuchecks and SSI. Would not DC on oral hypoglycemic agents given her risk. Skin tear of right hand without complication Superficial laceration after fall. No signs of infections -Wound care Heparin for DVT proph Problem Qualifiers (1) DM (diabetes mellitus): Radha Falk MD May 07, 2017 11:25
[2017-05-07] MEDS: DOCUSATE SODIUM 50 MG/SENNA 8.6 MG TAB PO SCH ×2 (11:58→21:46)
[2017-05-07 12:52] LABS: HEMOGLOBIN A1a 1.1 %; HEMOGLOBIN A1b 2.4 %; HEMOGLOBIN Ao 84.3 %; HEMOGLOBIN LA1C 2.2 %; HEMOGLOBIN P3 6.2 %
[2017-05-07] MEDS: SODIUM BICARBONATE 650 MG TAB PO SCH ×2 (14:03→21:46)
[2017-05-07 14:16] LABS: BICARBONATE 26.4 MEQ/L (21.0-32.0); POTASSIUM 3.8 MEQ/L (3.5-5.1)
--- NOTE | 2017-05-07 14:31 | ECHRPT ---
Indication: Other cardiomyopathies CONCLUSIONS Mildly dilated left ventricle. Wall thickness is measured at the upper limits of normal. The left ventricular systolic function is severely reduced with an estimated ejection fraction in th e range of 30-35%. The left atrial size is mildly dilated. Ppya-uk-twszhqet mitral valve regurgitation. Moderate mitral annular calcification. Aortic valve sclerosis is present. Trace aortic valve regurgitation. BP: / HR: Rhythm: MEASUREMENTS (Male / Female) Normal Values Technical Quality:Good 2D ECHO LV Diastolic Diameter PLAX 4.2 cm 4.2 - 5.9 / 3.9 - 5.3 cm LV Systolic Diameter PLAX 3.5 cm IVS Diastolic Thickness 1.3 cm 0.6 - 1.0 / 0.6 - 0.9 cm LVPW Diastolic Thickness 1.0 cm 0.6 - 1.0 / 0.6 - 0.9 cm LV Relative Wall Thickness 0.5 LA Systolic Diameter LX 4.7 cm 3.0 - 4.0 / 2.7 - 3.8 cm DOPPLER AV Peak Velocity 173.0 cm/s AV Peak Gradient 12.0 mmHg LVOT Peak Velocity 102.0 cm/s LVOT Peak Gradient 4.2 mmHg MV Peak Velocity 135.0 cm/s MV Peak Gradient 7.3 mmHg MV Mean Velocity 71.1 cm/s MV Mean Gradient 3.0 mmHg MR Peak Velocity 562.0 cm/s MR Peak Gradient 126.3 mmHg Mitral E Point Velocity 87.4 cm/s Mitral A Point Velocity 116.0 cm/s Mitral E to A Ratio 0.8 TR Peak Velocity 144.0 cm/s TR Peak Gradient 8.3 mmHg FINDINGS LEFT VENTRICLE Mildly dilated left ventricle. Wall thickness is measured at the upper limits of normal. The left ventricular systolic function is severely reduced with an estimated ejection fraction in th e range of 30-35%. RIGHT VENTRICLE Normal right ventricular size and systolic function. LEFT ATRIUM The left atrial size is mildly dilated. RIGHT ATRIUM The right atrial size is normal. ATRIAL SEPTUM Normal atrial septal thickness without atrial level shunting by limited color doppler interrogation. AORTA The aortic root and proximal ascending aorta are normal in size on limited imaging. MITRAL VALVE Ardy-lf-zpzmxohd mitral valve regurgitation. Moderate mitral annular calcification. Mitral valve mean gradient is 3 mmHg. AORTIC VALVE Aortic valve sclerosis is present. Trace aortic valve regurgitation. TRICUSPID VALVE Structurally normal tricuspid valve. No tricuspid valve stenosis or regurgitation. PULMONARY VALVE The pulmonary valve is not well visualized. VESSELS The inferior vena cava is normal in size. PERICARDIUM No pericardial effusion. Darren Delacruz MD, FACC (Electronically Signed) Final Date:07 May 2017 14:30
--- NOTE | 2017-05-07 14:50 | PD.WCN.NOT ---
Wound Consult Description: Wound Management of right hand per Romina, MDR2 Communicated with: SHIRLEY Arreola Dr Recommendation: Daily: 1. Remove dressing of allegra, gauze, and single layer Xeroform from right hand 2. Gently cleanse skin tear using NS and patting dry with gauze 3. Apply a SINGLE LAYER of Xeroform over wound bed 4. Cover Xeroform with 4x4 gauze 5. Secure gauze with rolled gauze and tape PLEASE DO NOT APPLY TAPE TO SKIN Additional Information: Patient seen on for right hand skin tear. Dressing of rolled gauze and multiple layers of Xeroform removed from right hand to reveal a skin tear measuring 7cm x 5cm x 0.1cm. Wound was cleansed with NS and gauze. A single layer of Xeroform was applied to wound bed and covered with gauze that was secured with rolled gauze and tape. No tape was applied to skin. Ayleen Ponce [facility] May 07, 2017 14:50
[2017-05-07] MEDS: EZETIMIBE 10 MG TAB PO SCH (21:46)
[2017-05-07] MEDS: ATORVASTATIN 40 MG TAB PO SCH (21:46)
[2017-05-07] MEDS: ACETAMINOPHEN/HYDROcodone 325 MG/10 MG TAB PO PRN (21:47)
[2017-05-08 00:06] VITALS: BP 142/67; PULSE 57; RESP 18; TEMP 97.7; O2SAT 98
[2017-05-08] MEDS: HEPARIN SODIUM - SQ 10,000 UNITS/ML VIAL SQ SCH ×2 (03:16→16:00)
[2017-05-08 04:06] VITALS: BP 150/65; PULSE 56; RESP 18; TEMP 97.9; O2SAT 97
[2017-05-08] MEDS: CARBIDOPA/LEVODOPA 10 MG/100 MG TAB PO SCH ×2 (06:00→14:13)
[2017-05-08] MEDS: INSULIN ASPART SUPPLEMENTAL SCALE SQ SCH ×3 (06:00→16:00)
[2017-05-08 08:00] VITALS: BP 144/69; PULSE 58; RESP 18; TEMP 97.4; O2SAT 99
[2017-05-08] MEDS: ACETAMINOPHEN/HYDROcodone 325 MG/10 MG TAB PO PRN ×2 (08:09→14:14)
[2017-05-08] MEDS: ASPIRIN EC 81 MG TABEC PO SCH (08:09)
[2017-05-08] MEDS: ONDANSETRON HCL 4 MG/2 ML VIAL IVP PRN (08:09)
[2017-05-08] MEDS: VITAMIN B CMPLX/VITC/FOLIC AC CAP PO SCH (08:09)
[2017-05-08] MEDS: AMIODARONE 200 MG TAB PO SCH (08:10)
[2017-05-08] MEDS: CLOPIDOGREL 75 MG TAB PO SCH (08:10)
[2017-05-08] MEDS: SODIUM BICARBONATE 650 MG TAB PO SCH (08:10)
[2017-05-08] MEDS: METOPROLOL TARTRATE 25 MG TAB PO SCH (08:10)
[2017-05-08] MEDS: DULoxetine HCl DR 60 MG CAP PO SCH (08:10)
[2017-05-08] MEDS: SODIUM CHLORIDE 0.9% FLUSH 10 ML FLUSH IV FLUSH SCH (08:10)
[2017-05-08] MEDS: DOCUSATE SODIUM 50 MG/SENNA 8.6 MG TAB PO SCH (08:10)
[2017-05-08] MEDS: SEVELAMER CARBONATE 800 MG TAB PO SCH ×2 (08:10→12:32)
[2017-05-08] MEDS: CINACALCET HYDROCHLORIDE 30 MG TAB PO SCH (08:10)
[2017-05-08 08:17] VITALS: PULSE 59
[2017-05-08 08:20] LABS: BICARBONATE 28.1 MEQ/L (21.0-32.0); POTASSIUM 3.3 MEQ/L (3.5-5.1)
[2017-05-08] MEDS ORDERED: POTASSIUM CHLORIDE 20 MEQ CONTROLLED RELEASE TAB PO ONE (09:00)
--- NOTE | 2017-05-08 11:31 | HHI.NPPN ---
Subjective General Problems: Anemia Renal Failure: Chronic, End Stage Renal Disease Interval History She is more alert today. PD going well. (Flory Duarte) Review of Systems General Constitutional: Fatigue (Flory Duarte) Musculoskeletal MS: Pain/Stiffness MS Remarks right shoulder (Flory Duarte) Objective Data Data 05/07/17 05/08/17 19:00 07:00 Intake Total 360 ml Output Total 1486 ml 400 ml Balance -1126 ml -400 ml Intake Oral 360 ml Output Urine Total 300 ml 400 ml Peritoneal Fluid 1186 ml # Bowel Movements 0 1 Vital Signs Date Time Temp Pulse Resp B/P Pulse Ox O2 Delivery O2 Flow Rate FiO2 05/08/17 08:17 59 05/08/17 08:15 Room Air 05/08/17 08:00 97.4 58 18 144/69 99 05/08/17 04:06 97.9 56 18 150/65 97 05/08/17 00:06 97.7 57 18 142/67 98 05/07/17 20:00 97.2 56 20 133/78 100 05/07/17 19:45 Room Air 05/07/17 19:45 58 05/07/17 16:00 97.7 64 20 140/60 97 05/07/17 12:00 97.2 64 20 137/66 98 (Flory Duarte) -: 05/06/17 0537 05/08/17 0556 Tubes & Lines: Wolff (Flory Duarte) Physical Exam General Appearance: Well Developed, Comfortable, Malnourished (Flory Duarte) Throat Throat Exam: Oral Mucosa [place] & Moist (Flory Duarte) Neck Neck Exam: Neck Supple (Flory Duarte) Pulmonary Resp Exam: Clear Bilaterally, Breath Sounds Equal (Flory Duarte) Cardiology CV Exam: Regular, Normal Sinus Rhythm (Flory Duarte) Gastrointestinal/Abdomen GI Exam: Soft, Non-Tender, Bowel Sounds Present (Flory Duarte) Musculoskeletal MS Exam: Joints Intact, Normal Tone, Atrophy MS Remarks right shoulder ecchymosis and laceration s/p fall (Flory Duarte) Integumentary Skin Exam: Warm, Dry, Lesion(s) (Flory Duarte) Extremeties Extremities Exam: No Edema, Pedal Pulses Palpable (Flory Duarte) Neurologic Neuro Exam: Alert, Awake, Oriented (Flory Duarte) Psychiatric Psych Exam: Appropriate Responses (Flory Duarte) Assessment/Plan Discussed Condition With: Patient Assessment Summary: Anemia of CKD, Hypertension, End Stage Renal Disease Problem List: (1) ESRD (end stage renal disease) on dialysis Plan: Continue nightly PD, excellent UF with 1.5% dextrose solution replace potassium stop oral bicarbonate no dietary protein restriction avoid IVF remove wolff catheter obtain intermittent renal panel (2) Skin tear of right hand without complication Plan: due to fall continue wound care work up for fall in progress (3) DM (diabetes mellitus) Plan: A1c 4.9. she does not require DM treatment has had poor oral intake, loss of appetite, start Megace for appetite stimulation (4) Elevated troponin I level Plan: Cardiology has evaluated continue beta flor, Plavix, ASA, statin Echo shows EF 30-35% (5) Metabolic bone disease Plan: continue Renvela with meals, obtain phosphorus level intermittently continue Sensipar for secondary hyperparathyroidism (Flory Duarte) Problem List: (1) ESRD (end stage renal disease) on dialysis Plan: Continue nightly PD, excellent UF with 1.5% dextrose solution replace potassium stop oral bicarbonate no dietary protein restriction avoid IVF remove wolff catheter obtain intermittent renal panel (2) Skin tear of right hand without complication Plan: due to fall continue wound care work up for fall in progress (3) DM (diabetes mellitus) Plan: A1c 4.9. she does not require DM treatment has had poor oral intake, loss of appetite, start Megace for appetite stimulation (4) Elevated troponin I level Plan: Cardiology has evaluated continue beta flor, Plavix, ASA, statin Echo shows EF 30-35% (5) Metabolic bone disease Plan: continue Renvela with meals, obtain phosphorus level intermittently continue Sensipar for secondary hyperparathyroidism Plan patient was seen and examined. Agree with above assessment and plan. (Mahamed Pedersen MD) Problem Qualifiers (1) Skin tear of right hand without complication: Qualified Code: S61.411A - Skin tear of right hand without complication, initial encounter (2) DM (diabetes mellitus): Flory Duarte May 08, 2017 11:31 Mahamed Pedersen MD May 09, 2017 15:26
[2017-05-08] MEDS ORDERED: MEGESTROL ACETATE SUSP 400 MG/10 ML CUP PO SCH (11:45)
[2017-05-08 12:00] VITALS: BP 144/77; PULSE 57; RESP 18; TEMP 97.5; O2SAT 99
[2017-05-08] MEDS ORDERED: MEGE40SU PO (12:04)
[2017-05-08] MEDS ORDERED: HYDR-3516 PO (12:04)
[2017-05-08] MEDS ORDERED: AMIO200T PO (12:04)
--- NOTE | 2017-05-08 12:04 | HHI.DS ---
Discharge Summary Admission Date May 05, 2017 at 12:31 Discharge Date: May 08, 2017 Admitting Diagnosis end-stage renal disease, peritoneal dialysis, elevated troponin (1) Physical deconditioning ICD Code: R53.81 (2) Peritoneal dialysis status ICD Code: Z99.2 (3) Weakness ICD Code: R53.1 (4) DM (diabetes mellitus) ICD Code: E11.9 Procedures None Brief History - From Admission History of present illness from the admitting physician. Patient is a 71-year-old female with PMH significant for end-stage renal disease on peritoneal dialysis, DM, CAD. Presented today due to fall. She reports that she was putting her birds into their cage around 2 AM and then she fell. She does not know how she fell or any symptoms related to the fall. She does not know if she lost consciousness or if she hit her head. Was unable to get up unassisted. Her neighbor found her on the ground at 11 AM at which time the ambulance were called. Patient has not attempted to ambulate since initial fall and reports that she is unable to due to pain. She reports that she had poor ambulation prior to fall but would not specify if she uses a walker, wheelchair, any other assistive device. Reports residual left arm/leg weakness after stroke. She reports that she has been falling frequently with 5 falls over the last 4 days. Has been able to stand up independently after those falls. This most recent fall resulted in right shoulder, right hand, left hip, left mid back pain. She also reports progressive weakness over the last 7 days. Did not perform peritoneal dialysis for the last 2 days because she was too weak to lift up the bags. Also reports anuria for the last 2 days which is new. Patient denies any chest pain, SOB, palpitations, abdominal pain, dysuria, blood in stool, nausea/vomiting. CBC/BMP: 05/06/17 0537 05/08/17 0556 Significant Findings Laboratory Tests Test 05/05/17 05/05/17 05/05/17 05/05/17 14:30 15:30 17:10 18:47 Total Creatine Kinase 274 U/L 230 U/L (26-192) (26-192) Creatine Kinase MB 7.1 NG/ML 6.9 NG/ML (0.5-3.6) (0.5-3.6) Troponin I 1.22 NG/ML 1.20 NG/ML (0.02-0.05) (0.02-0.05) Urine Protein 30 mg/dL (NEG-TRACE) Urine Occult Blood TRACE (NEG) Urine Bacteria RARE /hpf (NONE) Potassium Level 5.5 MEQ/L (3.5-5.1) Chloride Level 112 MEQ/L (98-107) Carbon Dioxide Level 13.6 MEQ/L (21.0-32.0) Blood Urea Nitrogen 89 MG/DL (7-18) Creatinine 9.55 MG/DL (0.50-1.00) Estimat Glomerular Filtration 4 ML/MIN (>89) Rate Random Glucose 71 MG/DL (74-106) Test 05/05/17 05/06/17 05/06/17 05/07/17 22:34 01:10 05:37 13:15 Lactic Acid Level 2.5 mmol/L 2.5 mmol/L (0.4-2.0) (0.4-2.0) White Blood Count 11.1 TH/MM3 (4.0-11.0) Red Blood Count 2.81 MIL/MM3 (4.00-5.30) Hemoglobin 8.9 GM/DL (11.6-15.3) Hematocrit 27.5 % (35.0-46.0) Carbon Dioxide Level 18.6 MEQ/L (21.0-32.0) Blood Urea Nitrogen 70 MG/DL (7-18) 56 MG/DL (7-18) Creatinine 7.97 MG/DL 7.01 MG/DL (0.50-1.00) (0.50-1.00) Estimat Glomerular Filtration 5 ML/MIN (>89) 6 ML/MIN (>89) Rate Random Glucose 49 MG/DL (74-106) Test 05/08/17 05:56 Potassium Level 3.3 MEQ/L (3.5-5.1) Blood Urea Nitrogen 43 MG/DL (7-18) Creatinine 6.09 MG/DL (0.50-1.00) Estimat Glomerular Filtration 7 ML/MIN (>89) Rate Imaging Last Impressions Chest X-Ray 05/05/17 1014 Signed Impressions: Service Date/Time: Friday, May 05, 2017 10:39 - CONCLUSION: Moderate interstitial edema. Roque Rodriguez MD FACR Thoracic Spine X-Ray 05/05/17 0000 Signed Impressions: Service Date/Time: Friday, May 05, 2017 13:40 - CONCLUSION: Diffuse primary degenerative changes throughout the entire thoracic spine. Nadeem Christian MD Shoulder X-Ray 05/05/17 0000 Signed Impressions: Service Date/Time: Friday, May 05, 2017 13:40 - CONCLUSION: 1. No acute fracture joint dislocation. 2. Evidence of shoulder impingement syndrome and calcific tendinitis. Nadeem Christian MD Lumbar Spine X-Ray 05/05/17 0000 Signed Impressions: Service Date/Time: Friday, May 05, 2017 10:49 - CONCLUSION: 1. Moderate diffuse primary degenerative changes, disc degeneration and disc space narrowing throughout the lumbar spine. 2. Grade 1 anterior spondylolisthesis of L4 over L5 3. Mild aneurysmal dilatation of the infrarenal abdominal aorta at 3.1 cm. Nadeem Christian MD Hip and Pelvis X-Ray 05/05/17 0000 Signed Impressions: Service Date/Time: Friday, May 05, 2017 10:49 - CONCLUSION: 1. Negative for fracture. 2. Extensive vascular calcifications. Roque Rodriguez MD FACR Head CT 05/05/17 0000 Signed Impressions: Service Date/Time: Friday, May 05, 2017 11:09 - CONCLUSION: 1. No acute intracranial hemorrhage. 2. Old area of infarction involving the right mid parietal area. 3. No significant change compared to the prior exam from 2011 Nadeem Christian MD PE at Discharge GENERAL: Elderly female in no apparent distress. CARDIOVASCULAR: Normal rate and regular rhythm without murmurs, gallops, or rubs. RESPIRATORY: Good respiratory efforts. Breath sounds equal and clear to auscultation bilaterally. GASTROINTESTINAL: Abdomen soft, non-tender, non-distended. Normal active bowel sounds MUSCULOSKELETAL: Extremities without cyanosis, or edema. NEURO: Alert & Oriented x4 to person, place, time, situation. Generalized weakness PSYCH: Appropriate mood and affect. Pt update on day of discharge Patient reports she is feeling much better. No more nausea or vomiting. She is tolerating her diet. Initially he declined to go to a fpc facility but realizing that she is still very deconditioned and having trouble doing her dialysis, she later agreed to go to a fpc facility. Hospital Course 71-year-old female admitted and treated for the following: End-stage renal disease on peritoneal dialysis: Patient missed 2 days of dialysis because she was too weak to self administer dialysis. Patient followed by nephrology. She continue peritoneal dialysis. Unclear the patient will be able to continue to do dialysis on her own, she is discharged to a fpc facility to continue rehabilitation. Elevated troponin Known history of coronary artery disease. Patient was evaluated by cardiology. She refused any invasive ischemic workup. Cardiology recommends continuing medical management with Plavix, beta flor, and statin. Physical deconditioning: Associated with fall. Uremia probably contributing. Imaging unremarkable for any acute fractures. -Patient was on a lot of different sedating medications which were discontinued. -Continue PT at SNF Diabetes: Patient had an episode of Hypoglycemia. Hemoglobin A1c 4.9, I do not believe the patient warrant medications at this point. Oral hypoglycemic agents discontinued. Skin tear of right hand without complication Superficial laceration after fall. No signs of infections -Continue wound care. Pt Condition on Discharge: Good Discharge Disposition: Discharge to SNF Discharge Time: > 30 minutes Discharge Instructions DIET: Follow Instructions for: Heart Healthy Diet, Renal Failure Diet Activities you can perform: Regular-No Restrictions Follow up Referrals: Nephrology PCP Follow-up New Medications: Hydrocodone-Acetaminophen (Hydrocodone-Acetaminophen) 5-325 mg Tab 1 TAB PO Q4H PRN PAIN GREATER THAN 5 #20 TAB Megestrol Liq (Megestrol Liq) 40 Mg/Ml Susp 800 MG PO DAILY Days 30 Changed Medications: Amiodarone (Amiodarone) 200 Mg Tab 200 MG PO DAILY Regulate Heart Beat #60 Ref 0 TAB (Changed from: BID) Continued Medications: Aspirin DR (Aspirin EC) 81 Mg Tabdr 81 MG PO DAILY cad Days 30 Ref 0 TAB Atorvastatin (Lipitor) 40 Mg Tab 40 MG PO HS Cholesterol Management TAB B-Complex W/ C & Folic Acid (Michelle-Jesse) 1 Tab 1 TAB PO DAILY TAB Betamethasone-Clotrimazole Topical (Lotrisone Topical) 1-0.05% Cream 1 APPLIC TOPICAL BID Fungal infection #15 Ref 0 GM Carbidopa-Levodopa (Sinemet) 10-100 Mg Tab 1 TAB PO Q8HR Parkinson Disease Mgmt #90 Ref 0 TAB Cinacalcet (Sensipar) 90 Mg Tab 90 MG PO DAILY TAB Clopidogrel (Plavix) 75 Mg Tab 75 MG PO DAILY Blood Clot Prevention #30 Ref 0 TAB Colchicine (Colchicine) 0.6 Mg Cap 0.6 MG PO DAILY Gout Ref 0 CAP Diphenhydramine (Diphenhydramine) 25 Mg Cap 25 MG PO Q6HR PRN ALLERGIES CAP Docusate Sodium (Colace) 100 Mg Capsule 1 CAP PO BID Duloxetine DR (Cymbalta DR) 60 Mg Capdr 60 MG PO DAILY CAP Ezetimibe (Zetia) 10 Mg Tab 10 MG PO HS TAB Metoprolol Tartrate (Metoprolol Tartrate) 25 Mg Tab 25 MG PO Q12HR cad Days 30 Ref 0 TAB Sevelamer Carbonate (Renvela) 800 Mg Tab 2400 MG PO TIDPC TAKE WITH EACH MEAL Control phosphorous levels TAB Discontinued Medications: Aspirin (Aspirin) 325 Mg Tab 325 MG PO BID #30 Ref 0 TAB Cinacalcet (Sensipar) 60 Mg Tab 60 MG PO BID #60 Ref 0 TAB Cyclobenzaprine (Flexeril) 5 Mg Tab 5 MG PO DAILY PRN MUSCLE SPASM TAB Docusate Calcium (Surfak) 240 Mg Cap 240 MG PO DAILY Prevent Constipation CAP Dronabinol (Marinol) 5 Mg Cap 5 MG PO TIDPC CAP Estazolam (Estazolam) 2 Mg Tab 2 MG PO HS Hydrocodone-Acetaminophen (Lortab) 5-325 Mg Tab 1 TAB PO DAILY PRN PAIN TAB Lorazepam (Lorazepam) 0.5 Mg Tab 0.5 MG PO Q8H Anxiety TAB Metaxalone (Skelaxin) 800 Mg Tablet 1 TAB PO TID Pain Management Metoclopramide (Metoclopramide) 5 Mg Tab 5 MG PO TIDAC Ref 0 TAB Mirtazapine (Mirtazapine) 15 Mg Tab 15 MG PO HS Depression Control TAB Mupirocin Topical (Bactroban Topical) 2 % Cream 1 APPLIC TOPICAL TID APPLY TO PORT Mgmt Bacterial Infection TUBE Nitroglycerin SL (Nitroglycerin SL) 0.4 Mg Subl 0.4 MG SL DIRECTED ONE TABLET UNDER THE TONGUE NEEDED FOR CHEST PAIN, MAY REPEAT EVERY FIVE MINUTES FOR A TOTAL OF 3 DOSES OR CALL 911 IF NO RELIEF PRN CHEST PAIN TAB.SL Sevelamer Carbonate (Renvela) 800 Mg Tab 3200 MG PO TID Control phosphorous levels #90 Ref 0 TAB Sitagliptin (Januvia) 50 Mg Tab 50 MG PO DAILY Blood Sugar Management TAB Tramadol-Acetaminophen (Ultracet) 37.5-325 mg Tab 1 TAB PO QID PRN PAIN TAB Trazodone (Trazodone) 300 Mg Tab 300 MG PO HS Control Depression TAB Radha Falk MD May 08, 2017 12:04
[2017-05-08 16:00] VITALS: BP 131/65; PULSE 57; RESP 18; TEMP 97.4; O2SAT 99
== END 2017-05-08 17:49 | DRG 682 ==
LOC: NEPC 09:53 → NEDA 12:31 → N04B 16:04
PROVIDERS: ADMIT Family Medicine; ATTEND Family Medicine
PROC: 3E1M39Z Irrigation of Peritoneal Cavity using Dialysate, Percutaneous Approach (ICD-10-PCS; principal; 2017-05-05)
DX: I12.0 Hypertensive chronic kidney disease with stage 5 chronic kidney disease or end stage renal disease (principal); N18.6 End stage renal disease; E11.22 Type 2 diabetes mellitus with diabetic chronic kidney disease; I69.854 Hemiplegia and hemiparesis following other cerebrovascular disease affecting left non-dominant side; F17.210 Nicotine dependence, cigarettes, uncomplicated; J44.9 Chronic obstructive pulmonary disease, unspecified; E78.5 Hyperlipidemia, unspecified; I25.10 Atherosclerotic heart disease of native coronary artery without angina pectoris; I25.2 Old myocardial infarction; Z99.2 Dependence on renal dialysis; E11.649 Type 2 diabetes mellitus with hypoglycemia without coma; S61.411A Laceration without foreign body of right hand, initial encounter; R74.8 Abnormal levels of other serum enzymes; Y92.009 Unspecified place in unspecified non-institutional (private) residence as the place of occurrence of the external cause; W18.30XA Fall on same level, unspecified, initial encounter; F31.9 Bipolar disorder, unspecified; Z79.02 Long term (current) use of antithrombotics/antiplatelets; Z79.82 Long term (current) use of aspirin
CPT/HCPCS: 70450; 71010; 72072; 72110; 73030; 73502; 76937; 80048; 81001; 82140; 82550; 82552; 82948; 83036; 83605; 83735; 84484; 85025; 85027; 85610; 85730; 87040; 87070; 87205; 90935; 93005; 93306; 96361; 96374; J1644; J1815; J2270; J2405; J7040; Q4081

== ENCOUNTER 2017-05-13 13:41 | Inpatient (IN) | payer MEDICARE ==
[~2017-05-13] VITALS: Ht 167.6 cm; Wt 55.3 kg
[~2017-05-13 13:41] MED LIST changes: -BENEPOW8 PO; +COLA100C PO; +COLC1CAP3 PO; -CYCL5TAB PO; -ESTA2TAB PO; +HYDR-3516 PO; -HYDR-3533 PO; -KAOP240C PO; -LORA-373 PO; +LOTR15T TOPICAL; -MARI5CAP PO; +MEGE40SU PO; -META800T81 PO; -MIRTA15 PO; -MUPI2%T TOPICAL; -NITR1SUB3 SL; +SINE10100 PO; -SITA50 PO; -TRAZ300T2 PO; -ULTR37.55 PO
[2017-05-13] MEDS ORDERED: SODIUM CHLORIDE 0.9% FLUSH 10 ML FLUSH IVF PRN (14:00)
[2017-05-13 14:01] VITALS: BP 151/70; PULSE 70; RESP 15; TEMP 97.7; O2SAT 100
--- NOTE | 2017-05-13 14:03 | PD ---
HPI Chief Complaint: altered mental status Time Seen by Provider: 13:57 Travel History International Travel<30 days: No Contact w/Intl Traveler<30days: No Traveled to known affect area: No History of Present Illness HPI 71-year-old female [place] [facility] patient with history of hypertension, end-stage renal disease on peritoneal dialysis, presents to the ER today because she states that she had 2 seizures, the last one was witnessed by staff. She states she has history of seizures. She is not currently on any seizure medications. She denies any chest pains, shortness of breath, but has been nauseous and had no vomiting. She appears somewhat disoriented and is unclear whether she is a reliable historian. Modifying Factors: None Associated Signs & Symptoms: Seizure, altered mental status Risk Factors: Stated previous history of seizures PFSH Past Medical History Hx Anticoagulant Therapy: Yes Asthma: Yes (SLIGHTLY) Blood Disorders: No Anxiety: Yes Depression: Yes Cancer: No Cardiovascular Problems: Yes High Cholesterol: Yes Chest Pain: No Congestive Heart Failure: No COPD: No Cerebrovascular Accident: Yes Diabetes: Yes Dialysis: Yes (PERITONEAL) Diminished Hearing: No Endocrine: Yes GERD: No Genitourinary: Yes Headaches: Yes Hepatitis: No Hiatal Hernia: No Hypertension: Yes Immune Disorder: No Kidney Stones: No Musculoskeletal: No Neurologic: Yes Psychiatric: No Reproductive: No Respiratory: No Immunizations Current: Yes Migraines: No Myocardial Infarction: Yes Renal Failure: Yes (PERITONEAL DIALYSIS) Seizures: No Thyroid Disease: No Ulcer: No PNEUMOCCOCAL Vaccine (Year): 1 Menopausal: Yes Past Surgical History Abdominal Surgery: Yes (CHOLECYSTECTOMY, PD access) AICD: No Appendectomy: Yes Arteriovenous Shunt: No Body Medical Devices: TENCKHOFF TUBE, peritoneal dialysis catheter Cardiac Surgery: No Cholecystectomy: Yes Ear Surgery: No Endocrine Surgery: No Eye Surgery: No Genitourinary Surgery: Yes (CYSTOPLASTY/RECTAL PLASTY) Gynecologic Surgery: No Insulin Pump: No Joint Replacement: No Oral Surgery: Yes (TONSILLECTOMY) Pacemaker: No Thoracic Surgery: No Tonsillectomy: Yes Other Surgery: Yes Social History Alcohol Use: No Tobacco Use: Yes (1 PPD) Substance Use: No Allergies-Medications (Allergen,Severity, Reaction): Coded Allergies: Ancef (Verified Allergy, Severe, 05/13/17) ANAPHYLAXIS Bran (Verified Allergy, Severe, Anaphylaxis, 05/13/17) Cephalosporins (Verified Allergy, Severe, 05/13/17) Contrast Media (Verified Allergy, Severe, 05/13/17) Keflex (Verified Allergy, Severe, 05/13/17) Penicillin (Verified Allergy, Severe, 05/13/17) Percocet (Verified Allergy, Severe, 05/13/17) Percodan (Verified Allergy, Severe, 05/13/17) Sulfa (Verified Allergy, Severe, 05/13/17) Talwin (Verified Allergy, Severe, 05/13/17) White Fish (Verified Allergy, Severe, ANYPHYLAXIS, 05/13/17) ALL FISH PRODUCTS Amoxicillin (Verified Allergy, Unknown, 05/13/17) Floxcin (Verified Allergy, Unknown, 05/13/17) Propofol (Verified Allergy, Unknown, 05/13/17) Tetracycline (Verified Allergy, Unknown, 05/13/17) Tuna (Verified Allergy, Unknown, 05/13/17) Uncoded Allergies: BEANS (Allergy, Severe, 04/16/11) Reported Meds & Prescriptions Reported Meds & Active Scripts Active Hydrocodone-Acetaminophen 5-325 mg Tab 1 Tab PO Q4H PRN Megestrol Liq (Megestrol Acetate) 40 Mg/Ml Susp 800 Mg PO DAILY 30 Days Amiodarone (Amiodarone HCl) 200 Mg Tab 200 Mg PO DAILY Metoprolol Tartrate 25 Mg Tab 25 Mg PO Q12HR 30 Days Aspirin EC (Aspirin) 81 Mg Tabdr 81 Mg PO DAILY 30 Days Reported Santyl (Collagenase) 250 Unit/Gm Oin 1 Applic TOPICAL DAILY Lantiseptic Skin Protecta (Skin Protectants, Misc.) 50 % Oin 1 Applic TOPICAL EACH SHIFT Santyl Topical (Collagenase) 250 Unit/Gm Oint 1 Applic TOPICAL DAILY PRN Milk of Magnesia Liq (Magnesium Hydroxide) 400 Mg/5 Ml Susp 30 Ml PO DAILY PRN Dulcolax Supp (Bisacodyl) 10 Mg Supp 10 Mg RECTAL DAILY PRN Magnesium Citrate Liq (Magnesium Citrate) 300 Ml Liq 296 Ml PO DAILY PRN Zofran (Ondansetron HCl) 4 Mg Tab 4 Mg PO Q6HR PRN Mapap (Acetaminophen) 325 Mg Tab 650 Mg PO Q4HR PRN Colchicine 0.6 Mg Cap 0.6 Mg PO DAILY Colace (Docusate Sodium) 100 Mg Capsule 100 Mg PO BID Sinemet (Carbidopa/Levodopa) 10-100 Mg Tab 1 Tab PO Q8HR Plavix (Clopidogrel Bisulfate) 75 Mg Tab 75 Mg PO DAILY Sensipar (Cinacalcet) 90 Mg Tab 90 Mg PO DAILY Zetia (Ezetimibe) 10 Mg Tab 10 Mg PO HS Michelle-Jesse (B-Complex W/ C & Folic Acid) 1 Tab 1 Tab PO DAILY Renvela (Sevelamer Carbonate) 800 Mg Tab 2,400 Mg PO TIDPC TAKE WITH EACH MEAL Lipitor (Atorvastatin Calcium) 40 Mg Tab 40 Mg PO HS Diphenhydramine (Diphenhydramine HCl) 25 Mg Cap 25 Mg PO Q6HR PRN Cymbalta DR (Duloxetine HCl) 60 Mg Capdr 60 Mg PO DAILY Review of Systems ROS Limitations: Altered Mental Status Physical Exam Narrative GENERAL: Well-developed elderly white female patient currently in mild distress. Awake, alert, disoriented. SKIN: Focused skin assessment warm/dry. HEAD: Atraumatic. Normocephalic. EYES: Pupils equal and round. No scleral icterus. No injection or drainage. ENT: No nasal bleeding or discharge. Mucous membranes pink and moist. NECK: Trachea midline. No JVD. CARDIOVASCULAR: Regular rate and rhythm. No murmur appreciated. RESPIRATORY: No accessory muscle use. Clear to auscultation. Breath sounds equal bilaterally. GASTROINTESTINAL: Abdomen soft, non-tender, nondistended. Hepatic and splenic margins not palpable. MUSCULOSKELETAL: No obvious deformities. No clubbing. No cyanosis. No edema. NEUROLOGICAL: Awake and alert. No obvious cranial nerve deficits. Motor grossly within normal limits. Normal speech. PSYCHIATRIC: Appropriate mood and affect; insight and judgment normal. Data Data Last Documented VS Vital Signs Date Time Temp Pulse Resp B/P Pulse Ox O2 Delivery O2 Flow Rate FiO2 05/13/17 14:08 68 15 141/72 05/13/17 14:08 100 Nasal Cannula 2 05/13/17 14:08 97.7 Orders Complete Blood Count With Diff (05/13/17 13:58) Electrocardiogram (05/13/17 ) Ct Brain W/O Iv Contrast(Rout) (05/13/17 ) Blood Glucose (05/13/17 13:58) Ecg Monitoring (05/13/17 13:58) Iv Access Insert/Monitor (05/13/17 13:58) Oximetry (05/13/17 13:58) Comprehensive Metabolic Panel (05/13/17 13:58) Sodium Chloride 0.9% Flush (Ns Flush) (05/13/17 14:00) Urinalysis - C+S If Indicated (05/13/17 13:58) Labs Laboratory Tests Test 05/13/17 05/13/17 05/13/17 14:00 14:05 14:30 White Blood Count 10.4 TH/MM3 Red Blood Count 3.75 MIL/MM3 Hemoglobin 12.0 GM/DL Hematocrit 35.8 % Mean Corpuscular Volume 95.5 FL Mean Corpuscular Hemoglobin 31.9 PG Mean Corpuscular Hemoglobin 33.4 % Concent Red Cell Distribution Width 17.1 % Platelet Count 420 TH/MM3 Mean Platelet Volume 9.9 FL Neutrophils (%) (Auto) 82.3 % Lymphocytes (%) (Auto) 10.4 % Monocytes (%) (Auto) 6.7 % Eosinophils (%) (Auto) 0.1 % Basophils (%) (Auto) 0.5 % Neutrophils # (Auto) 8.5 TH/MM3 Lymphocytes # (Auto) 1.1 TH/MM3 Monocytes # (Auto) 0.7 TH/MM3 Eosinophils # (Auto) 0.0 TH/MM3 Basophils # (Auto) 0.1 TH/MM3 CBC Comment DIFF FINAL Differential Comment Sodium Level 128 MEQ/L Potassium Level 3.1 MEQ/L Chloride Level 93 MEQ/L Carbon Dioxide Level 22.1 MEQ/L Anion Gap 13 MEQ/L Blood Urea Nitrogen 32 MG/DL Creatinine 5.14 MG/DL Estimat Glomerular Filtration 8 ML/MIN Rate Random Glucose 100 MG/DL Calcium Level 7.8 MG/DL Total Bilirubin 0.7 MG/DL Aspartate Amino Transf 31 U/L (AST/SGOT) Alanine Aminotransferase 14 U/L (ALT/SGPT) Alkaline Phosphatase 111 U/L Total Protein 5.9 GM/DL Albumin 2.2 GM/DL Urine Color YELLOW Urine Turbidity CLEAR Urine pH 7.5 Urine Specific [place] 1.012 Urine Protein 30 mg/dL Urine Glucose (UA) NEG mg/dL Urine Ketones NEG mg/dL Urine Occult Blood NEG Urine Nitrite NEG Urine Bilirubin NEG Urine Urobilinogen LESS THAN 2.0 MG/DL Urine Leukocyte Esterase NEG Urine RBC LESS THAN 1 /hpf Urine WBC 1 /hpf Microscopic Urinalysis Comment CULT NOT INDICATED MDM Medical Decision Making Medical Screen Exam Complete: Yes Emergency Medical Condition: Yes Medical Record Reviewed: Yes Interpretation(s) Laboratory Tests Test 05/13/17 05/13/17 05/13/17 14:00 14:05 14:30 Red Blood Count 3.75 MIL/MM3 (4.00-5.30) Neutrophils (%) (Auto) 82.3 % (16.0-70.0) Neutrophils # (Auto) 8.5 TH/MM3 (1.8-7.7) Sodium Level 128 MEQ/L (136-145) Potassium Level 3.1 MEQ/L (3.5-5.1) Chloride Level 93 MEQ/L (98-107) Blood Urea Nitrogen 32 MG/DL (7-18) Creatinine 5.14 MG/DL (0.50-1.00) Estimat Glomerular Filtration 8 ML/MIN (>89) Rate Calcium Level 7.8 MG/DL (8.5-10.1) Total Protein 5.9 GM/DL (6.4-8.2) Albumin 2.2 GM/DL (3.4-5.0) Urine Protein 30 mg/dL (NEG-TRACE) Last [address] 05/13/17 0000 Signed Impressions: Service Date/Time: Saturday, May 13, 2017 16:11 - CONCLUSION: Stable chronic changes. García Lynn MD Differential Diagnosis Seizures versus electrolyte abnormalities versus post ictal period versus acute intercranial processes Narrative Course Lab work shows a hyponatremia and mild hypokalemia. She has elevated BUN/ creatinine creatinine which is expected and end-stage renal disease. Patient will need peritoneal dialysis. She was given a small bolus of normal saline for the sodium. She has negative CT of the brain. It is uncertain what is causing her seizure which appears possibly to be new onset. Patient states she' s had seizures in past but is not on any seizure medications. At this point, my plan would be to admit her as an observation for further evaluation. Case was discussed with Dr. Hou for admission. Diagnosis Primary Impression: Seizures Additional Impressions: Hyponatremia End stage renal disease Admitting Information Admitting Physician Requests: Admit Ty Montalvo MD May 13, 2017 14:03
[2017-05-13 14:08] VITALS: BP_SYST 140; BP_SYST 141; BP_DIAS 72; PULSE 68; RESP 15; RESP 16; TEMP 97.7; O2SAT 100
[2017-05-13 14:19] LABS: AUTOMATED NEUTROPHIL # 8.5 TH/MM3 (1.8-7.7); BASOPHIL # 0.1 TH/MM3 (0-0.2); BASOPHIL % 0.5 % (0.0-2.0); EOSINOPHIL % 0.1 % (0.0-4.0); HEMATOCRIT 35.8 % (35.0-46.0); HEMO FLAGS DIFF FINAL; LYMPH % 10.4 % (9.0-44.0); LYMPHOCYTE # 1.1 TH/MM3 (1.0-4.8); MEAN CELL VOLUME 95.5 FL (80.0-100.0); MEAN CORPUSCULAR HEMOGLOBIN 31.9 PG (27.0-34.0); MEAN CORPUSCULAR HGB CONC 33.4 % (32.0-36.0); MONO % 6.7 % (0.0-8.0); NEUT % 82.3 % (16.0-70.0); PLATELET COUNT 420 TH/MM3 (150-450); RED BLOOD COUNT 3.75 MIL/MM3 (4.00-5.30); RED CELL DISTRIBUTION WIDTH 17.1 % (11.6-17.2); WHITE BLOOD COUNT 10.4 TH/MM3 (4.0-11.0)
[2017-05-13 14:31] LABS: ALT (GPT) 14 U/L (10-53); ANION GAP 13 MEQ/L (5-15); AST (GOT) 31 U/L (15-37); BICARBONATE 22.1 MEQ/L (21.0-32.0); BLOOD UREA NITROGEN 32 MG/DL (7-18); CHLORIDE 93 MEQ/L (98-107); GLOMERULAR FILTRATION RATE 8 ML/MIN (>89); POTASSIUM 3.1 MEQ/L (3.5-5.1); SODIUM (NA) 128 MEQ/L (136-145)
[2017-05-13 14:34] LABS: ALKALINE PHOSPHATASE 111 U/L (45-117); TOTAL BILIRUBIN ADULT 0.7 MG/DL (0.2-1.0)
[2017-05-13 14:49] LABS: BLOOD, URINE NEG (NEG); GLUCOSE,URINE NEG (NEG); KETONE, URINE NEG (NEG); NITRITE,URINE NEG (NEG); PH, URINE 7.5 (5.0-8.5); URINE COLOR YELLOW (YELLW/STRAW)
[2017-05-13 14:54] LABS: COMMENT (UR) CULT NOT INDICATED; CULTURE IF INDICATED CULT NOT INDICATED
[2017-05-13] MEDS ORDERED: MAPA325T PO (16:25)
[2017-05-13] MEDS ORDERED: ZOFR4TAB PO (16:25)
[2017-05-13] MEDS ORDERED: DULC10SU3 RECTAL (16:27)
[2017-05-13] MEDS ORDERED: MAGNSOL2 PO (16:27)
[2017-05-13] MEDS ORDERED: MILKSUS PO (16:33)
--- NOTE | 2017-05-13 16:33 | RADRPT ---
EXAM DATE/TIME: 05/13/2017 16:11 [place] COMPARISON: CT BRAIN W/O CONTRAST, May 05, 2017, 11:09. INDICATIONS : Evaluate for altered mental status and seizures. RADIATION DOSE: 56.44 CTDIvol (mGy) MEDICAL HISTORY : Cardiovascular disease. Hypertension. Diabetes mellitus type 2. SURGICAL HISTORY : Coronary artery stent. ENCOUNTER: Initial ACUITY: 1 day PAIN SCALE: Non-responsive LOCATION: Bilateral cranial TECHNIQUE: Multiple contiguous axial images were obtained of the head. Using automated exposure control and adj ustment of the mA and/or kV according to patient size, radiation dose was kept as low as reasonably a chievable to obtain optimal diagnostic quality images. DICOM format image data is available electro nically for review and comparison. FINDINGS: There is no evidence for intracranial hemorrhage, mass effect, mass lesions, or edema. The visualize d bony structures appear intact. Slight degree of brain atrophy is seen. Slight periventricular whit e matter changes are seen nonspecific mostly consistent with chronic small vessel ischemic changes. There are no signs of acute infarction for technique. There is stable encephalomalacia in the right p arietal lobe no change. CONCLUSION: Stable chronic changes. García Lynn MD on May 13, 2017 at 16:31 Board Certified Radiologist. This report was verified electronically.
[2017-05-13] MEDS ORDERED: COLL30T TOPICAL ×2 (16:44→16:52)
[2017-05-13] MEDS ORDERED: [UNRECOGNIZED DRUG - CODE] TOPICAL (16:51)
[2017-05-13] MEDS ORDERED: SODIUM CHLORID 0.9% 500 ML INJ 500 ML IV ONE (17:15)
[2017-05-13] MEDS ORDERED: POTASSIUM CHLORIDE 10 MEQ CONTROLLED RELEASE TAB PO ONE (17:15)
--- NOTE | 2017-05-13 18:04 | HHI.HP ---
[facility] Unknown Admission Diagnosis seizures/hyponatremia/hypokalemia Diagnoses: Chief Complaint: Altered mental status Travel History International Travel<30 Days: No Contact w/Intl Traveler <30 Da: No Traveled to Known Affected Are: No History of Present Illness Written by Bob Lara, acting as scribe for Dr. Hou on 05/13/17 at 17:54. 71-year-old female with a past medical history of DM, COPD, HTN, HLD, CAD, CVA, ESRD on PD who was sent from SNF for seizure. The patient is currently disoriented and a poor historian. She is only providing one-word answers. Thus , much of the history is obtained from the medical record and ED communication. The patient states that she presented for nausea. She has bilateral arm pain. She doesn't voice any other complaints at this time. Reportedly the patient is normally oriented and manages her own peritoneal dialysis at home. Apparently she has had acute mental status change sometime in the last week. She was sent to SNF one week. Today the patient was noted to have rigidity lasting approximately 30 seconds that apparently looked like seizure activity, SNF records reviewed. Apparently she has had multiple falls recently. Review of Systems ROS Limitations: Altered Mental Status, Poor Historian (ROS limited by patient' s current mental status) Past Family Social History Past Medical History Diabetes mellitus COPD Hypertension Hyperlipidemia Coronary artery disease Stroke ESRD on peritoneal dialysis Possible history of cardiac arrhythmia and Parkinson's disease as well Past Surgical History Cholecystectomy Appendectomy Peritoneal dialysis catheter placement Tonsillectomy Reported Medications Hydrocodone-Acetaminophen 5-325 mg Tab 1 Tab PO Q4H PRN Megestrol Liq (Megestrol Acetate) 40 Mg/Ml Susp 800 Mg PO DAILY 30 Days Amiodarone (Amiodarone HCl) 200 Mg Tab 200 Mg PO DAILY Metoprolol Tartrate 25 Mg Tab 25 Mg PO Q12HR 30 Days Aspirin EC (Aspirin) 81 Mg Tabdr 81 Mg PO DAILY 30 Days Santyl (Collagenase) 250 Unit/Gm Oin 1 Applic TOPICAL DAILY Lantiseptic Skin Protecta (Skin Protectants, Misc.) 50 % Oin 1 Applic TOPICAL EACH SHIFT Santyl Topical (Collagenase) 250 Unit/Gm Oint 1 Applic TOPICAL DAILY PRN Milk of Magnesia Liq (Magnesium Hydroxide) 400 Mg/5 Ml Susp 30 Ml PO DAILY PRN Dulcolax Supp (Bisacodyl) 10 Mg Supp 10 Mg RECTAL DAILY PRN Magnesium Citrate Liq (Magnesium Citrate) 300 Ml Liq 296 Ml PO DAILY PRN Zofran (Ondansetron HCl) 4 Mg Tab 4 Mg PO Q6HR PRN Mapap (Acetaminophen) 325 Mg Tab 650 Mg PO Q4HR PRN Colchicine 0.6 Mg Cap 0.6 Mg PO DAILY Colace (Docusate Sodium) 100 Mg Capsule 100 Mg PO BID Sinemet (Carbidopa/Levodopa) 10-100 Mg Tab 1 Tab PO Q8HR Plavix (Clopidogrel Bisulfate) 75 Mg Tab 75 Mg PO DAILY Sensipar (Cinacalcet) 90 Mg Tab 90 Mg PO DAILY Zetia (Ezetimibe) 10 Mg Tab 10 Mg PO HS Michelle-Jesse (B-Complex W/ C & Folic Acid) 1 Tab 1 Tab PO DAILY Renvela (Sevelamer Carbonate) 800 Mg Tab 2,400 Mg PO TIDPC TAKE WITH EACH MEAL Lipitor (Atorvastatin Calcium) 40 Mg Tab 40 Mg PO HS Diphenhydramine (Diphenhydramine HCl) 25 Mg Cap 25 Mg PO Q6HR PRN Cymbalta DR (Duloxetine HCl) 60 Mg Capdr 60 Mg PO DAILY Allergies: Coded Allergies: Ancef (Verified Allergy, Severe, 05/13/17) ANAPHYLAXIS Bran (Verified Allergy, Severe, Anaphylaxis, 05/13/17) Cephalosporins (Verified Allergy, Severe, 05/13/17) Contrast Media (Verified Allergy, Severe, 05/13/17) Keflex (Verified Allergy, Severe, 05/13/17) Penicillin (Verified Allergy, Severe, 05/13/17) Percocet (Verified Allergy, Severe, 05/13/17) Percodan (Verified Allergy, Severe, 05/13/17) Sulfa (Verified Allergy, Severe, 05/13/17) Talwin (Verified Allergy, Severe, 05/13/17) White Fish (Verified Allergy, Severe, ANYPHYLAXIS, 05/13/17) ALL FISH PRODUCTS Amoxicillin (Verified Allergy, Unknown, 05/13/17) Floxcin (Verified Allergy, Unknown, 05/13/17) Propofol (Verified Allergy, Unknown, 05/13/17) Tetracycline (Verified Allergy, Unknown, 05/13/17) Tuna (Verified Allergy, Unknown, 05/13/17) Uncoded Allergies: BEANS (Allergy, Severe, 04/16/11) Active Ordered Medications Current Medications Medications (Trade) Dose Ordered Sig/Melinda Route Start Time Stop Time Status Last Admin Sodium Chloride 2 ml 2 ml UNSCH PRN IVF 05/13/17 14:00 (NS 500 ml Inj) 500 ml @ 500 mls/hr BOLUS ONCE IV 05/13/17 17:15 05/13/17 18:14 05/13/17 17:50 Family History Mother possibly had lung cancer and during surgery Father of PA Social History [facility] resident Reported tobacco use Reported no alcohol use Physical Exam Vital Signs Vital Signs Date Time Temp Pulse Resp B/P Pulse Ox O2 Delivery O2 Flow Rate FiO2 05/13/17 14:08 68 15 141/72 05/13/17 14:08 62 15 100 Nasal Cannula 2 05/13/17 14:08 97.7 68 16 140/72 100 Nasal Cannula 2 05/13/17 14:01 97.7 70 15 151/70 100 Physical Exam GENERAL: Well-developed fair-nourished thin patient. In no acute distress. SKIN: Warm and dry. Multiple bruises of the back and arms. HEENT: Normocephalic. Pupils equal and round. Mucous membranes pink and moist. CARDIOVASCULAR: Regular rate and rhythm. No murmur appreciated. RESPIRATORY: No accessory muscle use. Clear to auscultation. Breath sounds equal bilaterally. GASTROINTESTINAL: Abdomen soft, generalized tenderness to palpation, nondistended. PD catheter in place. Bowel sounds x4. MUSCULOSKELETAL: No obvious deformities. Difficulty moving the left shoulder secondary to pain. No clubbing or cyanosis. No edema. NEUROLOGICAL: Awake and alert. Moves upper and lower extremities spontaneously. Normal speech, but only provides one-word answers to questioning. Follows commands. Limited strength of the left upper extremity, although appears to be possibly musculoskeletal. Otherwise fair strength. PSYCH: Patient was oriented to name, birthday and month, but not oriented to year. She is not oriented to time or place. Laboratory Laboratory Tests Test 05/13/17 05/13/17 05/13/17 14:00 14:05 14:30 White Blood Count 10.4 Red Blood Count 3.75 Hemoglobin 12.0 Hematocrit 35.8 Mean Corpuscular Volume 95.5 Mean Corpuscular Hemoglobin 31.9 Mean Corpuscular Hemoglobin 33.4 Concent Red Cell Distribution Width 17.1 Platelet Count 420 Mean Platelet Volume 9.9 Neutrophils (%) (Auto) 82.3 Lymphocytes (%) (Auto) 10.4 Monocytes (%) (Auto) 6.7 Eosinophils (%) (Auto) 0.1 Basophils (%) (Auto) 0.5 Neutrophils # (Auto) 8.5 Lymphocytes # (Auto) 1.1 Monocytes # (Auto) 0.7 Eosinophils # (Auto) 0.0 Basophils # (Auto) 0.1 CBC Comment DIFF FINAL Differential Comment Sodium Level 128 Potassium Level 3.1 Chloride Level 93 Carbon Dioxide Level 22.1 Anion Gap 13 Blood Urea Nitrogen 32 Creatinine 5.14 Estimat Glomerular Filtration 8 Rate Random Glucose 100 Calcium Level 7.8 Total Bilirubin 0.7 Aspartate Amino Transf 31 (AST/SGOT) Alanine Aminotransferase 14 (ALT/SGPT) Alkaline Phosphatase 111 Total Protein 5.9 Albumin 2.2 Urine Color YELLOW Urine Turbidity CLEAR Urine pH 7.5 Urine Specific [place] 1.012 Urine Protein 30 Urine Glucose (UA) NEG Urine Ketones NEG Urine Occult Blood NEG Urine Nitrite NEG Urine Bilirubin NEG Urine Urobilinogen LESS THAN 2.0 Urine Leukocyte Esterase NEG Urine RBC LESS THAN 1 Urine WBC 1 Microscopic Urinalysis Comment CULT NOT INDICATED Result Diagram: 05/13/17 1400 05/13/17 1405 Imaging Last Impressions Head CT 05/13/17 0000 Signed Impressions: Service Date/Time: Saturday, May 13, 2017 16:11 - CONCLUSION: Stable chronic changes. García Lynn MD Assessment and Plan Problem List: (1) Metabolic encephalopathy ICD Code: G93.41 Status: Acute Assessment and Plan 71-year-old female with a past medical history of DM, COPD, HTN, HLD, CAD, CVA, ESRD on PD who was sent from SNF for seizure Acute encephalopathy, likely metabolic although unclear etiology Reportedly patient is acutely disoriented sometime over the past week. Reviewed: Head CT with stable chronic changes, nothing acute. Afebrile with no leukocytosis. UA unremarkable. -Check brain MRI and EEG, consider neuro consult depending on results -Check ammonia -Empiric antibiotics Abdominal pain with PD catheter in place: Rule out peritonitis. -Empiric Zosyn ESRD on PD: Consult patient's electric motor analyst to continue dialysis Left shoulder pain: With recent falls will check x-ray to rule out fracture. PT eval. DVT prophylaxis: SCDs This note was transcribed by sagrario Lara. I, Dr. Kavon Hou personally performed the history, physical exam, and medical decision making; and confirmed the accuracy of the information in the transcribed note. Authenticated by Dr. Kavon Hou on 05/13/17 at 17:54. Code Status Full code Discussed Condition With Patient with ED RN at bedside, ED physician Bob Lara May 13, 2017 18:04 Kavon Hou MD May 13, 2017 18:05
[2017-05-13] MEDS ORDERED: MAGNESIUM HYDROXIDE SUSP 30 ML CUP PO PRN (18:15)
[2017-05-13] MEDS ORDERED: NALOXONE HCL 0.4 MG/ML AMP IV PRN (18:15)
[2017-05-13] MEDS ORDERED: ACETAMINOPHEN 325 MG TAB PO PRN (18:15)
[2017-05-13 19:14] VITALS: BP 176/72; PULSE 88; RESP 18; O2SAT 98
[2017-05-13 20:54] VITALS: BP 138/71; PULSE 71; RESP 17; O2SAT 99
--- NOTE | 2017-05-13 22:11 | EKG ---
Date Performed: 05/13/2017 Time Performed: 14:23:16 PTAGE: 71 years EKG: Sinus rhythm POSSIBLE LEFT ATRIAL ENLARGEMENT NONSPECIFIC ST & T-WAVE ABNORMALITY ABNORMAL ECG PREVIOUS TRACING : 05/05/2017 18.37 Compared to prior tracing no significant change DOCTOR: Poonam Arellano Interpretating Date/Time 05/13/2017 22:09:45
[2017-05-14] VITALS (8 sets, daily range): BP systolic 106–135; BP diastolic 52–100; PULSE 58–69; RESP 18–20; TEMP 97.4–98.1; O2SAT 93–100
[2017-05-14] MEDS: LACTOBACILLUS ACIDOPHILUS TAB PO SCH ×3 (00:12→21:27)
[2017-05-14] MEDS: ACETAMINOPHEN 325 MG TAB PO PRN (00:12)
[2017-05-14] MEDS: PIPERACIL-TAZO 2.25 GM PREMIX 50 ML IV SCH ×2 (00:30→09:02)
[2017-05-14] MEDS: ONDANSETRON HCL 4 MG/2 ML VIAL IVP PRN (00:31)
[2017-05-14] MEDS: SODIUM CHLORIDE 0.9% FLUSH 10 ML FLUSH IV FLUSH SCH ×3 (00:31→21:49)
[2017-05-14 09:12] LABS: C. DIFF EPI 027 PRESUMPTIVE NEGATIVE (NEGATIVE)
[2017-05-14] MEDS ORDERED: SODIUM CHLOR 0.9% 1000 ML INJ 1,000 ML IV PRN ×3 (09:27)
[2017-05-14] MEDS ORDERED: NITROGLYCERIN 0.4 MG SL 25 TABS/BTL SL PRN (09:30)
[2017-05-14] MEDS ORDERED: ACETAMINOPHEN 325 MG TAB PO PRN (09:30)
[2017-05-14] MEDS ORDERED: diphenhydrAMINE HCL 25 MG CAP PO PRN (09:30)
[2017-05-14] MEDS ORDERED: GELATIN 12 MM/7 MM FOAM TOP PRN (09:30)
[2017-05-14] MEDS ORDERED: ONDANSETRON HCL 4 MG/2 ML VIAL IV PRN (09:30)
[2017-05-14] MEDS ORDERED: MANNITOL 12.5 GM/50 ML VIAL IV PRN (09:30)
[2017-05-14] MEDS ORDERED: SODIUM CHLORIDE 0.9% FLUSH 10 ML FLUSH IV FLUSH PRN ×2 (09:30→11:45)
[2017-05-14] MEDS ORDERED: ALBUMIN HUMAN 25% 25 GM/100 ML BAGP IV PRN (09:30)
[2017-05-14] MEDS ORDERED: HEPARIN SODIUM - IV 10,000 UNITS/10 ML VIAL PRN (09:30)
[2017-05-14] MEDS ORDERED: GENTAMICIN SULFATE (DIALYSIS USE ONLY) 20 MG/2 ML VIAL IV PRN (09:30)
[2017-05-14] MEDS ORDERED: HEPARIN SODIUM - IV 10,000 UNITS/10 ML VIAL IVF PRN (09:30)
[2017-05-14] MEDS ORDERED: cloNIDine HCL 0.1 MG TAB PO PRN (09:30)
[2017-05-14 11:05] LABS: AUTOMATED NEUTROPHIL # 11.1 TH/MM3 (1.8-7.7); BASOPHIL % 0.2 % (0.0-2.0); EOSINOPHIL % 0.3 % (0.0-4.0); HEMATOCRIT 29.6 % (35.0-46.0); HEMO FLAGS DIFF FINAL; LYMPH % 13.9 % (9.0-44.0); LYMPHOCYTE # 2.1 TH/MM3 (1.0-4.8); MEAN CELL VOLUME 96.5 FL (80.0-100.0); MEAN CORPUSCULAR HEMOGLOBIN 31.4 PG (27.0-34.0); MEAN CORPUSCULAR HGB CONC 32.5 % (32.0-36.0); MONO % 11.7 % (0.0-8.0); NEUT % 73.9 % (16.0-70.0); PLATELET COUNT 344 TH/MM3 (150-450); RED BLOOD COUNT 3.07 MIL/MM3 (4.00-5.30)
[2017-05-14 11:36] LABS: C. DIFF TOXIN PCR POSITIVE (NEGATIVE)
[2017-05-14 11:37] LABS: BICARBONATE 25.1 MEQ/L (21.0-32.0); CALCIUM-PROTEIN CORRECTED 8.2 MG/DL (8.5-10.1); POTASSIUM 3.2 MEQ/L (3.5-5.1); TOTAL BILIRUBIN ADULT 0.6 MG/DL (0.2-1.0)
[2017-05-14] MEDS ORDERED: HEPARIN SODIUM - IV 10,000 UNITS/10 ML VIAL XX PRN (11:45)
--- NOTE | 2017-05-14 11:48 | PD.CONS ---
HPI Service Nephrology Consult Requested By Reason for Consult ESRD on PD Primary Care Physician Unknown History of Present Illness This is a 71 y/o female patient recently dishcarged from this hospital. At that time she was admitted after a fall, had cardiac evaluation but declined further work up. She was discharged to rehab as prior to that admission she was unable to lift the PD supplies and therefore did not do dialysis for several days. At rehab she was doing her own PD. Apparently she was sent to ER for seizure like activity, no hx of this in the past. However on exam the patient is able to tell me she remembers the event, remembers shaking and did not have LOC, denies fall also. PMH of ESRD on PD, HTN, anemia, prior CVA, gout, and frequent falls. She is having an EEG at the time of my exam. Today she is awake, alert, not complaining of headache or confusion. We were consulted for renal management. She also is reporting diarrhea, C diff test is pending. She is a full code. ( Flory Duarte) Review of Systems Constitutional: DENIES: Fatigue, Weight gain, Change in appetite Respiratory: DENIES: Shortness of breath Cardiovascular: DENIES: Chest pain, Dyspnea on Exertion, Lower Extremity Edema Neurologic: COMPLAINS OF: Seizures, Tremor, Poor Balance, DENIES: Abnormal gait, Headache, Speech Problems Psychiatric: COMPLAINS OF: Confusion, DENIES: Anxiety (Flory Duarte ) Past Family Social History Allergies: Coded Allergies: Ancef (Verified Allergy, Severe, 05/13/17) ANAPHYLAXIS Bran (Verified Allergy, Severe, Anaphylaxis, 05/13/17) Cephalosporins (Verified Allergy, Severe, 05/13/17) Contrast Media (Verified Allergy, Severe, 05/13/17) Keflex (Verified Allergy, Severe, 05/13/17) Penicillin (Verified Allergy, Severe, 05/13/17) Percocet (Verified Allergy, Severe, 05/13/17) Percodan (Verified Allergy, Severe, 05/13/17) Sulfa (Verified Allergy, Severe, 05/13/17) Talwin (Verified Allergy, Severe, 05/13/17) White Fish (Verified Allergy, Severe, ANYPHYLAXIS, 05/13/17) ALL FISH PRODUCTS Amoxicillin (Verified Allergy, Unknown, 05/13/17) Floxcin (Verified Allergy, Unknown, 05/13/17) Propofol (Verified Allergy, Unknown, 05/13/17) Tetracycline (Verified Allergy, Unknown, 05/13/17) Tuna (Verified Allergy, Unknown, 05/13/17) Uncoded Allergies: BEANS (Allergy, Severe, 04/16/11) Past Medical History ESRD on PD Diabetes mellitus, now diet controlled COPD Hypertension Hyperlipidemia Coronary artery disease Stroke Metabolic bone disorder Secondary hyperparathyroidism Gout Depression ? Parkinson's Possible history of cardiac arrhythmia Past Surgical History Left patellar repair cystoplasty/rectal plasty gall bladder appendectomy PD catheter placement Reported Medications Hydrocodone-Acetaminophen 5-325 mg Tab 1 Tab PO Q4H PRN Megestrol Liq (Megestrol Acetate) 40 Mg/Ml Susp 800 Mg PO DAILY 30 Days Amiodarone (Amiodarone HCl) 200 Mg Tab 200 Mg PO DAILY Metoprolol Tartrate 25 Mg Tab 25 Mg PO Q12HR 30 Days Aspirin EC (Aspirin) 81 Mg Tabdr 81 Mg PO DAILY 30 Days Santyl (Collagenase) 250 Unit/Gm Oin 1 Applic TOPICAL DAILY Lantiseptic Skin Protecta (Skin Protectants, Misc.) 50 % Oin 1 Applic TOPICAL EACH SHIFT Santyl Topical (Collagenase) 250 Unit/Gm Oint 1 Applic TOPICAL DAILY PRN Milk of Magnesia Liq (Magnesium Hydroxide) 400 Mg/5 Ml Susp 30 Ml PO DAILY PRN Dulcolax Supp (Bisacodyl) 10 Mg Supp 10 Mg RECTAL DAILY PRN Magnesium Citrate Liq (Magnesium Citrate) 300 Ml Liq 296 Ml PO DAILY PRN Zofran (Ondansetron HCl) 4 Mg Tab 4 Mg PO Q6HR PRN Mapap (Acetaminophen) 325 Mg Tab 650 Mg PO Q4HR PRN Colchicine 0.6 Mg Cap 0.6 Mg PO DAILY Colace (Docusate Sodium) 100 Mg Capsule 100 Mg PO BID Sinemet (Carbidopa/Levodopa) 10-100 Mg Tab 1 Tab PO Q8HR Plavix (Clopidogrel Bisulfate) 75 Mg Tab 75 Mg PO DAILY Sensipar (Cinacalcet) 90 Mg Tab 90 Mg PO DAILY Zetia (Ezetimibe) 10 Mg Tab 10 Mg PO HS Michelle-Jesse (B-Complex W/ C & Folic Acid) 1 Tab 1 Tab PO DAILY Renvela (Sevelamer Carbonate) 800 Mg Tab 2,400 Mg PO TIDPC TAKE WITH EACH MEAL Lipitor (Atorvastatin Calcium) 40 Mg Tab 40 Mg PO HS Diphenhydramine (Diphenhydramine HCl) 25 Mg Cap 25 Mg PO Q6HR PRN Cymbalta DR (Duloxetine HCl) 60 Mg Capdr 60 Mg PO DAILY Active Ordered Medications Current Medications Medications (Trade) Dose Ordered Sig/Melinda Route Start Time Stop Time Status Last Admin (NS Flush) 2 ml UNSCH PRN IV FLUSH 05/13/17 18:15 (NS Flush) 2 ml BID IV FLUSH 05/13/17 21:00 05/14/17 09:02 (Tylenol) 650 mg Q4H PRN PO 05/13/17 18:15 (Zofran Inj) 4 mg Q6H PRN IVP 05/13/17 18:15 05/14/17 00:31 (Tylenol) 650 mg Q6H PRN PO 05/13/17 18:15 05/14/17 00:12 (Narcan Inj) 0.4 mg UNSCH PRN IV 05/13/17 18:15 Magnesium Hydroxide 30 ml 30 ml Q12H PRN PO 05/13/17 18:15 (Zosyn 2.25 Gm Premix) 50 ml @ 100 mls/hr Q12H IV 05/13/17 21:00 05/14/17 09:02 Lactobacillus Acidophilus 1 tab 1 tab Q12HR PO 05/13/17 21:00 05/14/17 09:02 (NS 1000 ml Inj) 1,000 ml @ 0 mls/hr Q0M PRN IV 05/14/17 09:27 Heparin Sodium (Porcine) 8000 units 8,000 units UNSCH PRN IVF 05/14/17 09:30 Sodium Chloride 1,000 ml @ 200 mls/hr Q5H PRN IV 05/14/17 09:27 (NS 1000 ml Inj) 1,000 ml @ 0 mls/hr Q0M PRN IV 05/14/17 09:27 (Mannitol Inj) 12.5 gm UNSCH PRN IV 05/14/17 09:30 (Albumin 25% Inj) 25 gm UNSCH PRN IV 05/14/17 09:30 (NS Flush) 5 ml UNSCH PRN IV FLUSH 05/14/17 09:30 (Heparin Inj) UNSCH PRN .XX 05/14/17 09:30 (Gentamicin (Dialysis) Inj) 20 mg UNSCH PRN IV 05/14/17 09:30 (Zofran Inj) 4 mg UNSCH PRN IV 05/14/17 09:30 (Tylenol) 650 mg UNSCH PRN PO 05/14/17 09:30 (Benadryl) 25 mg UNSCH PRN PO 05/14/17 09:30 (Nitrostat Sl) 0.4 mg UNSCH PRN SL 05/14/17 09:30 (Catapres) 0.1 mg UNSCH PRN PO 05/14/17 09:30 (Gelfoam 12 Mm/7 Mm Top) 1 foam UNSCH PRN TOP 05/14/17 09:30 Family History No hx of renal disorders Social History Active 1 ppd smoker for 40 years No ETOH, no illicit substance use Lives alone, locally but residing in rehab currently needs assistance with ADLs, has a history of falls full code retired (Flory Duarte) Physical Exam Vital Signs Vital Signs Date Time Temp Pulse Resp B/P Pulse Ox O2 Delivery O2 Flow Rate FiO2 05/14/17 08:23 98.0 66 20 121/65 100 05/14/17 04:12 64 05/14/17 04:00 97.4 69 18 135/66 93 05/14/17 01:00 98.1 69 18 124/100 93 05/13/17 20:54 71 17 138/71 99 Room Air 05/13/17 19:14 88 18 176/72 98 Room Air 05/13/17 14:08 68 15 141/72 05/13/17 14:08 62 15 100 Nasal Cannula 2 05/13/17 14:08 97.7 68 16 140/72 100 Nasal Cannula 2 05/13/17 14:01 97.7 70 15 151/70 100 Physical Exam Elderly female, appears chronically ill, lying supine having EEG awake, oriented x 3 without neuro deficit, no shaking of extremities Lungs clear in all vanegas CV: S1/S2, regular rate,no murmurs Abd: PD catheter intact, no drainage; no pain, bowel sounds normal extremities: no edema, some bruising to right shoulder Laboratory Laboratory Tests Test 05/13/17 05/13/17 05/13/17 05/13/17 14:00 14:05 14:30 18:30 White Blood Count 10.4 Red Blood Count 3.75 Hemoglobin 12.0 Hematocrit 35.8 Mean Corpuscular Volume 95.5 Mean Corpuscular Hemoglobin 31.9 Mean Corpuscular Hemoglobin 33.4 Concent Red Cell Distribution Width 17.1 Platelet Count 420 Mean Platelet Volume 9.9 Neutrophils (%) (Auto) 82.3 Lymphocytes (%) (Auto) 10.4 Monocytes (%) (Auto) 6.7 Eosinophils (%) (Auto) 0.1 Basophils (%) (Auto) 0.5 Neutrophils # (Auto) 8.5 Lymphocytes # (Auto) 1.1 Monocytes # (Auto) 0.7 Eosinophils # (Auto) 0.0 Basophils # (Auto) 0.1 CBC Comment DIFF FINAL Differential Comment Sodium Level 128 Potassium Level 3.1 Chloride Level 93 Carbon Dioxide Level 22.1 Anion Gap 13 Blood Urea Nitrogen 32 Creatinine 5.14 Estimat Glomerular Filtration 8 Rate Random Glucose 100 Calcium Level 7.8 Total Bilirubin 0.7 Aspartate Amino Transf 31 (AST/SGOT) Alanine Aminotransferase 14 (ALT/SGPT) Alkaline Phosphatase 111 Total Protein 5.9 Albumin 2.2 Urine Color YELLOW Urine Turbidity CLEAR Urine pH 7.5 Urine Specific [place] 1.012 Urine Protein 30 Urine Glucose (UA) NEG Urine Ketones NEG Urine Occult Blood NEG Urine Nitrite NEG Urine Bilirubin NEG Urine Urobilinogen LESS THAN 2.0 Urine Leukocyte Esterase NEG Urine RBC LESS THAN 1 Urine WBC 1 Microscopic Urinalysis Comment CULT NOT INDICATED Ammonia 25 Test 05/14/17 10:39 White Blood Count 15.0 Red Blood Count 3.07 Hemoglobin 9.6 Hematocrit 29.6 Mean Corpuscular Volume 96.5 Mean Corpuscular Hemoglobin 31.4 Mean Corpuscular Hemoglobin 32.5 Concent Red Cell Distribution Width 17.0 Platelet Count 344 Mean Platelet Volume 10.0 Neutrophils (%) (Auto) 73.9 Lymphocytes (%) (Auto) 13.9 Monocytes (%) (Auto) 11.7 Eosinophils (%) (Auto) 0.3 Basophils (%) (Auto) 0.2 Neutrophils # (Auto) 11.1 Lymphocytes # (Auto) 2.1 Monocytes # (Auto) 1.8 Eosinophils # (Auto) 0.0 Basophils # (Auto) 0.0 CBC Comment DIFF FINAL Differential Comment Date/Time Procedure Status Source Growth 05/13/17 20:45 Aerobic Blood Culture - Preliminary Resulted Blood Peripheral NO GROWTH IN 1 DAY 05/13/17 20:45 Anaerobic Blood Culture - Preliminary Resulted Blood Peripheral NO GROWTH IN 1 DAY (Flory Duarte) Result Diagram: 05/14/17 1039 05/13/17 1405 Imaging Last [address] 05/13/17 0000 Signed Impressions: Service Date/Time: Saturday, May 13, 2017 16:11 - CONCLUSION: Stable chronic changes. KDebby Lynn MD (Flory Duarte) Assessment and Plan Problem List: (1) End stage renal disease Plan: resume PD, her regimen consists of 4 cycles, 2000 ml, 1.5% solution, 9 hrs treatment time, no last fill catheter appears to be functioning well replace potassium orally, follow up labs tomorrow avoid IVF, gadolinium is contraindicated (2) Seizures Plan: no hx of this in the past. CT negative, EEG taken and results are pending (3) Hyponatremia Plan: improving, monitor (4) Metabolic bone disease Plan: resume Renvela, check phosphorous level intermittently (5) Anemia Plan: give a dose of Epogen (Flory Duarte) Assessment and Plan patient was seen and examined. She is forgetful, some confusion is noted. However she reports that she did not lose conscious. Workup for seizure in progress. We will resume PD. Epogen weekly for anemia. Noted that she has hyponatremia. Hyponatremia can lower seizure threshold. It has improved. Needs fluid restriction. (Mahamed Pedersen MD) Flory Duarte May 14, 2017 11:48 Mahamed Pedersen MD May 14, 2017 17:00
--- NOTE | 2017-05-14 11:50 | PD.WCN.NOT ---
Wound Consult Description: Wound Management of right buttock per Dr Hou Communicated with: SHIRLEY Kelsey Dr Recommendation: Calazime skin protectant BID and PRN to right buttock stage II pressure injury Single layer Xeroform to right hand skin tear daily, covered with 4x4, and rolled gauze to secure Additional Information: Patient seen on [address] for wound evaluation of right buttock. Patient was positioned to her left side for assessment. Right buttock visualized with an open, circular, partial thickness wound measuring 0.5cm x 0.5cm x 0.1cm of 100% pink tissue noted throughout wound bed with white open wound margins and unremarkable periwound making this a stage II pressure injury. Patient is continent of stool and urine at this time and asking to get up to bedside commode with assistance of SHIRLEY Kelsey and walker. Heels were visualized and noted as unremarkable. Right hand was noted with an old dressing that appeared tight that was cut off and redressed after cleansing skin tear (present on last admission) with Single Layer Xeroform and dry cover, no tape was applied to skin. Ayleen Ponce [facility] May 14, 2017 11:49
[2017-05-14] MEDS ORDERED: POTASSIUM CHLORIDE 10 MEQ CONTROLLED RELEASE TAB PO ONE (12:00)
--- NOTE | 2017-05-14 12:11 | HHI.PR ---
Subjective Remarks Follow-up metabolic encephalopathy and now C. difficile diarrhea 05/14/17-patient seen and examined, alert and oriented 2 and conversant. Patient with multiple episode of diarrhea earlier this morning. Vitals stable. Objective Vitals Vital Signs Date Time Temp Pulse Resp B/P Pulse Ox O2 Delivery O2 Flow Rate FiO2 05/14/17 08:23 98.0 66 20 121/65 100 05/14/17 04:12 64 05/14/17 04:00 97.4 69 18 135/66 93 05/14/17 01:00 98.1 69 18 124/100 93 05/13/17 20:54 71 17 138/71 99 Room Air 05/13/17 19:14 88 18 176/72 98 Room Air 05/13/17 14:08 68 15 141/72 05/13/17 14:08 62 15 100 Nasal Cannula 2 05/13/17 14:08 97.7 68 16 140/72 100 Nasal Cannula 2 05/13/17 14:01 97.7 70 15 151/70 100 Result Diagram: 05/14/17 1039 05/14/17 1039 Imaging Last Impressions Head CT 05/13/17 0000 Signed Impressions: Service Date/Time: Saturday, May 13, 2017 16:11 - CONCLUSION: Stable chronic changes. García Lynn MD Objective Remarks GENERAL: NAD SKIN: Warm and dry. HEAD: Normocephalic. EYES: No scleral icterus. No injection or drainage. NECK: Supple, trachea midline. No JVD or lymphadenopathy. CARDIOVASCULAR: Regular rate and rhythm without murmurs, gallops, or rubs. RESPIRATORY: Breath sounds equal bilaterally. No accessory muscle use. GASTROINTESTINAL: Abdomen soft, non-tender, nondistended. MUSCULOSKELETAL: No cyanosis, or edema. BACK: Nontender without obvious deformity. No CVA tenderness. A/P Problem List: (1) Metabolic encephalopathy ICD Code: G93.41 Status: Acute (2) C. difficile diarrhea ICD Code: A04.7 Status: Acute (3) Anemia in CKD (chronic kidney disease) ICD Code: N18.9 Status: Acute (4) ESRD on peritoneal dialysis ICD Code: N18.6 Status: Acute Assessment and Plan 71-year-old female with Acute encephalopathy, likely metabolic-now resolved - brain MRI and EEG pending, consider neuro consult depending on results -Check ammonia -Will discontinue Zosyn Questionable seizure activity EEG pending Continue to hold on starting any antiepileptic drug C. difficile diarrhea C. difficile toxin PCR positive Start Flagyl 500 mg every 8 IV and consider adding Vanco by mouth if no improvement ESRD on PD Nephrology consultation appreciated Anemia in chronic kidney disease Treated with Epogen 1 during dialysis Metabolic bone disease Continue with Renvela Hypokalemia Replace electrolyte and monitor Left shoulder pain: With recent falls will check x-ray to rule out fracture. PT eval. DVT prophylaxis: Kavon Lee MD May 14, 2017 12:11
[2017-05-14] MEDS: metroNIDAZOLE 500 MG INJ 100 ML IV SCH ×2 (12:55→21:27)
--- NOTE | 2017-05-14 19:42 | MG ---
cc: JEAN CLAUDE TINSLEY M.D. Lab No: Date: 05/14/2017 Age: Sex: F Race: ELECTROENCEPHALOGRAM NUMBER [id number] INTRODUCTION Hyperventilation not performed. Admitted for two seizures. A 71-year-old woman. Headache. Head trauma. MEDICATIONS Zofran. DESCRIPTION Diffuse theta slowing is noted. The recording overall is synchronous and symmetrical. A lot of movement and muscle artifact is seen. I do not see any hemisphere asymmetries. One small sharp wave is seen over the right temporal head region at epoch 89 best on the transverse montage but probably is not epileptiform. She appears to go into a stage II sleep not long after that. Photic stimulation performed without significant posterior driving. IMPRESSION Generally slow consistent with a mild diffuse encephalopathy but no focal abnormalities were noted of any significance. No seizure activity was seen. Please see above for one small wave likely normal over the temporal lobe. MD DAVID Hernandez/JORGE LUIS /4:47 PM /7:34 PM
[2017-05-14] MEDS: REMOVE OLD PATCH T-DERMAL SCH (21:00)
[2017-05-14] MEDS: NICOTINE 14 MG/24 HR PATCH T-DERMAL SCH (21:32)
[2017-05-15] VITALS (9 sets, daily range): BP systolic 116–146; BP diastolic 51–94; PULSE 62–74; RESP 18–20; TEMP 97–99.7; O2SAT 98–100
[2017-05-15] MEDS: ONDANSETRON HCL 4 MG/2 ML VIAL IVP PRN (03:10)
[2017-05-15] MEDS: metroNIDAZOLE 500 MG INJ 100 ML IV SCH ×3 (03:10→23:25)
[2017-05-15] MEDS: NICOTINE 14 MG/24 HR PATCH T-DERMAL SCH (09:37)
[2017-05-15] MEDS: LACTOBACILLUS ACIDOPHILUS TAB PO SCH ×2 (09:38→23:26)
[2017-05-15] MEDS: SODIUM CHLORIDE 0.9% FLUSH 10 ML FLUSH IV FLUSH SCH ×2 (09:38→23:26)
[2017-05-15] MEDS ORDERED: POTASSIUM CHLORIDE 10 MEQ CONTROLLED RELEASE TAB PO ONE (10:00)
--- NOTE | 2017-05-15 10:38 | HHI.PR ---
Subjective Remarks Follow-up metabolic encephalopathy and now C. difficile diarrhea 05/14/17-patient seen and examined, alert and oriented 2 and conversant. Patient with multiple episode of diarrhea earlier this morning. Vitals stable. 05/15/17-patient seen and examined, much more alert and oriented. Continue to have diarrhea. States she is having now a good appetite without any nausea or vomiting. Low-grade temp this morning Objective Vitals Vital Signs Date Time Temp Pulse Resp B/P Pulse Ox O2 Delivery O2 Flow Rate FiO2 05/15/17 08:00 99.7 64 18 138/57 98 05/15/17 04:00 97.0 70 18 118/60 98 05/15/17 00:00 98.0 74 20 116/51 98 05/14/17 20:00 97.5 63 18 106/52 100 05/14/17 19:00 66 05/14/17 16:11 97.5 64 20 117/58 98 05/14/17 12:21 97.6 58 20 110/60 95 I/O 05/14/17 05/14/17 05/14/17 05/15/17 05/15/17 05/15/17 07:00 15:00 23:00 07:00 15:00 23:00 Intake Total 108 ml Output Total 1084 ml Balance 108 ml -1084 ml Intake Oral 8 ml IV Total 100 ml Peritoneal Fluid 1084 ml Bladder Scan Volume Amount 80 ml # Voids 3 2 # Bowel Movements 3 2 Result Diagram: 05/14/17 1039 05/14/17 1039 Imaging Last Impressions Head CT 05/13/17 0000 Signed Impressions: Service Date/Time: Saturday, May 13, 2017 16:11 - CONCLUSION: Stable chronic changes. García Lynn MD Objective Remarks GENERAL: NAD SKIN: Warm and dry. HEAD: Normocephalic. EYES: No scleral icterus. No injection or drainage. NECK: Supple, trachea midline. No JVD or lymphadenopathy. CARDIOVASCULAR: Regular rate and rhythm without murmurs, gallops, or rubs. RESPIRATORY: Breath sounds equal bilaterally. No accessory muscle use. GASTROINTESTINAL: Abdomen soft, non-tender, nondistended. MUSCULOSKELETAL: No cyanosis, or edema. BACK: Nontender without obvious deformity. No CVA tenderness. A/P Problem List: (1) Metabolic encephalopathy ICD Code: G93.41 Status: Acute (2) C. difficile diarrhea ICD Code: A04.7 Status: Acute (3) Anemia in CKD (chronic kidney disease) ICD Code: N18.9 Status: Acute (4) ESRD on peritoneal dialysis ICD Code: N18.6 Status: Acute Assessment and Plan 71-year-old female with Acute encephalopathy, likely metabolic-now resolved - EEG without any evidence of seizure Questionable seizure activity EEG negative Continue to hold on starting any antiepileptic drug C. difficile diarrhea C. difficile toxin PCR positive Continue Flagyl 500 mg every 8 IV and by mouth vancomycin for 10-14 days total treatment ESRD on PD Nephrology consultation appreciated Continue with peritoneal dialysis Anemia in chronic kidney disease Treated with Epogen 1 during dialysis Metabolic bone disease Continue with Renvela Hypokalemia Replace electrolyte and monitor Left shoulder pain: With recent falls will check x-ray to rule out fracture. PT eval. DVT prophylaxis: SCDs Discharge Planning Anticipate Discharge back to SNF when medically stable in 48 hours as patient currently with C. difficile diarrhea Kavon Hou MD May 15, 2017 10:38
--- NOTE | 2017-05-15 11:18 | HHI.NPPN ---
Subjective General Problems: Anemia Renal Failure: Chronic, End Stage Renal Disease Interval History She tested positive for D diff. Confusion has improved. (Flory Duarte) Review of Systems Gastrointestinal Gastrointestinal: Diarrhea (Flory Duarte) Objective Data Data 05/14/17 05/15/17 19:00 07:00 Intake Total 108 ml Balance 108 ml Intake Oral 8 ml IV Total 100 ml # Voids 2 # Bowel Movements 2 Vital Signs Date Time Temp Pulse Resp B/P Pulse Ox O2 Delivery O2 Flow Rate FiO2 05/15/17 08:00 99.7 64 18 138/57 98 05/15/17 04:00 97.0 70 18 118/60 98 05/15/17 00:00 98.0 74 20 116/51 98 05/14/17 20:00 97.5 63 18 106/52 100 05/14/17 19:00 66 05/14/17 16:11 97.5 64 20 117/58 98 05/14/17 12:21 97.6 58 20 110/60 95 (Flory Duarte) -: 05/14/17 1039 05/14/17 1039 Imaging Last Impressions Head CT 05/13/17 0000 Signed Impressions: Service Date/Time: Saturday, May 13, 2017 16:11 - CONCLUSION: Stable chronic changes. García Lynn MD Tubes & Lines: Tenckhoff Catheter (Flory Duarte) Physical Exam General Appearance: No Acute Distress, Comfortable, Malnourished (Flory Duarte) Throat Throat Exam: Oral Mucosa [place] & Moist (Flory Duarte) Pulmonary Resp Exam: Clear Bilaterally, Breath Sounds Equal (Flory Duarte) Cardiology CV Exam: Regular, Normal Sinus Rhythm (Flory Duarte) Gastrointestinal/Abdomen GI Exam: Soft, Non-Tender, Bowel Sounds Present (Flory Duarte) Musculoskeletal MS Exam: Joints Intact, Atrophy (Flory Duarte) Integumentary Skin Exam: Warm, Dry Skin Remarks multiple bruises on face, left side also abrasions to lower legs, left more (Flory Duarte) Extremeties Extremities Exam: No Edema, Pedal Pulses Palpable (Flory Duarte) Neurologic Neuro Exam: Awake, Oriented, Moving All Extremities (Flory Duarte) Psychiatric Psych Exam: Appropriate Responses (Flory Duarte) Assessment/Plan Discussed Condition With: Patient Assessment Summary: Anemia of CKD Problem List: (1) End stage renal disease Plan: continue PD, her regimen consists of 4 cycles, 2000 ml, 1.5% solution, 9 hrs treatment time, no last fill catheter appears to be functioning well K was replaced orally, may be low due to poor oral intake avoid IVF, gadolinium is contraindicated high protein diet encouraged (2) Seizures Plan: no hx of this in the past. CT negative, EEG showing encephalopathy no seizure (3) Hyponatremia Plan: improving, monitor (4) Metabolic bone disease Plan: on Renvela, check phosphorous level in the AM (5) Anemia Plan: epogen ordered (6) C. difficile diarrhea Plan: on flagyl IV with contact precautions (Flory Duarte) Plan patient was seen and examined. Added oral vancomycin. Continue PD. Needs nutritional support. manager intermediate prognosis is poor. (Mahamed Pedersen MD) Flory Duarte May 15, 2017 11:18 Mahamed Pedersen MD May 16, 2017 14:12
[2017-05-15 11:47] LABS: AUTOMATED NEUTROPHIL # 12.1 TH/MM3 (1.8-7.7); BASOPHIL % 0.2 % (0.0-2.0); EOSINOPHIL # 0.1 TH/MM3 (0-0.4); EOSINOPHIL % 0.6 % (0.0-4.0); HEMATOCRIT 32.1 % (35.0-46.0); HEMO FLAGS DIFF FINAL; LYMPH % 13.3 % (9.0-44.0); LYMPHOCYTE # 2.1 TH/MM3 (1.0-4.8); MEAN CELL VOLUME 97.2 FL (80.0-100.0); MEAN CORPUSCULAR HGB CONC 31.9 % (32.0-36.0); MONO % 10.7 % (0.0-8.0); NEUT % 75.2 % (16.0-70.0); PLATELET COUNT 333 TH/MM3 (150-450); RED CELL DISTRIBUTION WIDTH 17.4 % (11.6-17.2); WHITE BLOOD COUNT 16.1 TH/MM3 (4.0-11.0)
[2017-05-15] MEDS: VANCOMYCIN 500 MG VIAL (FOR ORAL USE ONLY) PO SCH ×3 (13:09→23:31)
[2017-05-15] MEDS ORDERED: EPOETIN ALFA 20,000 UNITS/ML VIAL SQ ONE (14:00)
[2017-05-15 14:49] LABS: BICARBONATE 27.1 MEQ/L (21.0-32.0); CALCIUM-PROTEIN CORRECTED 8.7 MG/DL (8.5-10.1); TOTAL BILIRUBIN ADULT 0.5 MG/DL (0.2-1.0)
[2017-05-15] MEDS: REMOVE OLD PATCH T-DERMAL SCH (21:00)
[2017-05-16] VITALS (9 sets, daily range): BP systolic 111–153; BP diastolic 49–86; PULSE 64–94; RESP 17–20; TEMP 96.8–99.6; O2SAT 96–100
[2017-05-16] MEDS: metroNIDAZOLE 500 MG INJ 100 ML IV SCH ×3 (04:10→21:18)
[2017-05-16] MEDS: LACTOBACILLUS ACIDOPHILUS TAB PO SCH ×2 (09:00→21:18)
[2017-05-16 09:11] LABS: BASOPHIL % 0.3 % (0.0-2.0); EOSINOPHIL # 0.1 TH/MM3 (0-0.4); EOSINOPHIL % 0.4 % (0.0-4.0); HEMATOCRIT 32.8 % (35.0-46.0); HEMO FLAGS DIFF FINAL; LYMPH % 13.3 % (9.0-44.0); LYMPHOCYTE # 1.9 TH/MM3 (1.0-4.8); MEAN CELL VOLUME 98.8 FL (80.0-100.0); MEAN CORPUSCULAR HGB CONC 31.4 % (32.0-36.0); MONO % 10.6 % (0.0-8.0); NEUT % 75.4 % (16.0-70.0); PLATELET COUNT 316 TH/MM3 (150-450); RED BLOOD COUNT 3.32 MIL/MM3 (4.00-5.30); RED CELL DISTRIBUTION WIDTH 17.4 % (11.6-17.2); WHITE BLOOD COUNT 14.6 TH/MM3 (4.0-11.0)
[2017-05-16] MEDS: SODIUM CHLORIDE 0.9% FLUSH 10 ML FLUSH IV FLUSH SCH ×2 (09:36→21:19)
[2017-05-16] MEDS: VANCOMYCIN 500 MG VIAL (FOR ORAL USE ONLY) PO SCH ×4 (09:36→21:18)
[2017-05-16 09:39] LABS: BICARBONATE 29.2 MEQ/L (21.0-32.0)
[2017-05-16] MEDS: NICOTINE 14 MG/24 HR PATCH T-DERMAL SCH (09:42)
--- NOTE | 2017-05-16 09:45 | HHI.PR ---
Subjective Remarks The patient was resting in bed comfortably. She said she didn't have any diarrhea. She said she was breathing comfortably. She said her left shoulder has a history of being broken. She says she has not been eating much. She seemed a bit confused. Discussed with nursing. Objective Vitals Vital Signs Date Time Temp Pulse Resp B/P Pulse Ox O2 Delivery O2 Flow Rate FiO2 05/16/17 09:01 96 05/16/17 08:00 97.6 70 18 111/49 99 05/16/17 04:00 97.0 66 20 127/60 98 05/16/17 00:00 96.8 64 20 137/86 100 05/15/17 21:23 70 05/15/17 20:00 97.0 69 20 146/94 100 05/15/17 17:49 99 21 05/15/17 16:00 97.8 69 18 142/67 100 05/15/17 12:00 98.7 71 18 132/63 98 05/15/17 10:00 62 I/O 05/15/17 05/15/17 05/15/17 05/16/17 05/16/17 05/16/17 07:00 15:00 23:00 07:00 15:00 23:00 Intake Total 108 ml 480 ml 120 ml Output Total 1084 ml 1147 ml Balance 108 ml -604 ml 120 ml -1147 ml Intake Oral 8 ml 480 ml 120 ml IV Total 100 ml Peritoneal Fluid 1084 ml 1147 ml # Voids 2 3 0 # Bowel Movements 3 2 Result Diagram: 05/16/17 0802 05/15/17 1104 Imaging Last Impressions Head CT 05/13/17 0000 Signed Impressions: Service Date/Time: Saturday, May 13, 2017 16:11 - CONCLUSION: Stable chronic changes. García Lynn MD Objective Remarks GENERAL: NAD, resting comfortably. SKIN: Warm and dry. HEAD: Normocephalic. EYES: No scleral icterus. No injection or drainage. NECK: Supple, trachea midline. No JVD or lymphadenopathy. CARDIOVASCULAR: Regular rate and rhythm without murmurs, gallops, or rubs. RESPIRATORY: Breath sounds equal bilaterally. No accessory muscle use. GASTROINTESTINAL: Abdomen soft, non-tender, nondistended. MUSCULOSKELETAL: Left shoulder tender to palpation. No cyanosis, or edema. BACK: Nontender without obvious deformity. No CVA tenderness. NEURO: No gross deficits, confused. PSYCH: Calm. Medications and IVs Current Medications Medications (Trade) Dose Ordered Sig/Melinda Route Start Time Stop Time Status Last Admin (NS Flush) 2 ml UNSCH PRN IV FLUSH 05/13/17 18:15 (NS Flush) 2 ml BID IV FLUSH 05/13/17 21:00 05/16/17 09:36 (Tylenol) 650 mg Q4H PRN PO 05/13/17 18:15 (Zofran Inj) 4 mg Q6H PRN IVP 05/13/17 18:15 05/15/17 03:10 (Tylenol) 650 mg Q6H PRN PO 05/13/17 18:15 05/14/17 00:12 (Narcan Inj) 0.4 mg UNSCH PRN IV 05/13/17 18:15 (Milk Of Magnesia Liq) 30 ml Q12H PRN PO 05/13/17 18:15 (Lactinex) 1 tab Q12HR PO 05/13/17 21:00 05/16/17 09:00 Sodium Chloride 10 ml 10 ml UNSCH PRN IV FLUSH 05/14/17 11:45 (Flagyl 500 Mg Inj) 100 ml @ 100 mls/hr Q8H IV 05/14/17 12:00 05/16/17 04:10 (Habitrol 14 Mg Patch.24 Hr) 1 patch DAILY T-DERMAL 05/14/17 18:00 05/16/17 09:42 Miscellaneous Information 1 HS T-DERMAL 05/14/17 21:00 (VANCOMYCIN for oral use only) 250 mg QID PO 05/15/17 13:00 05/16/17 09:36 A/P Problem List: (1) Metabolic encephalopathy ICD Code: G93.41 Status: Acute (2) C. difficile diarrhea ICD Code: A04.7 Status: Acute (3) Anemia in CKD (chronic kidney disease) ICD Code: N18.9 Status: Acute (4) ESRD on peritoneal dialysis ICD Code: N18.6 Status: Acute Assessment and Plan Acute encephalopathy Likely metabolic, now resolved. She had questionable seizure activity. EEG without any evidence of seizure. - neuro checks. - seizure precautions. - Continue to hold on starting any antiepileptic drug. - PT/ OT. C. difficile diarrhea C. difficile toxin PCR positive. - Continue Flagyl 500 mg every 8 IV and by mouth vancomycin for 14 days total treatment. ESRD on PD Nephrology consultation appreciated - Continue with peritoneal dialysis. Anemia in chronic kidney disease Treated with Epogen during dialysis. - follow CBC as needed. Hypokalemia Potassium level persistently low. Likely secondary to decreased by mouth intake. - Replace with IV KCl and monitor. - check a magnesium level. Left shoulder pain Has had recent falls. - will check x-ray to rule out fracture. - PT eval. DVT prophylaxis: SCDs Discharge Planning Anticipate SNF in 1-2 days Brandon Mobley DO May 16, 2017 09:45
[2017-05-16 09:52] LABS: POTASSIUM 2.7 MEQ/L (3.5-5.1)
[2017-05-16] MEDS ORDERED: POTASSIUM CHLOR 20 MEQ PREMIX 100 ML IV ONE (10:00)
--- NOTE | 2017-05-16 11:28 | HHI.NPPN ---
Subjective General Problems: Anemia Renal Failure: Chronic, End Stage Renal Disease Interval History Severely hypokalemic today. Some confusion. Has excellent UF with PD. (Flory Duarte) Review of Systems Gastrointestinal Gastrointestinal: Diarrhea (Flory Duarte) Objective Data Data 05/15/17 05/16/17 19:00 07:00 Intake Total 480 ml 120 ml Output Total 1084 ml Balance -604 ml 120 ml Intake Oral 480 ml 120 ml Peritoneal Fluid 1084 ml # Voids 3 0 # Bowel Movements 3 2 Vital Signs Date Time Temp Pulse Resp B/P Pulse Ox O2 Delivery O2 Flow Rate FiO2 05/16/17 10:02 75 05/16/17 09:01 96 05/16/17 08:00 97.6 70 18 111/49 99 05/16/17 04:00 97.0 66 20 127/60 98 05/16/17 00:00 96.8 64 20 137/86 100 05/15/17 21:23 70 05/15/17 20:00 97.0 69 20 146/94 100 05/15/17 17:49 99 21 05/15/17 16:00 97.8 69 18 142/67 100 05/15/17 12:00 98.7 71 18 132/63 98 (Flory Duarte) -: 05/16/17 0802 05/16/17 0802 Tubes & Lines: Tenckhoff Catheter (Flory Duarte) Physical Exam General Appearance: No Acute Distress, Comfortable, Malnourished (Flory Duarte) Throat Throat Exam: Oral Mucosa [place] & Moist (Flory Duarte) Pulmonary Resp Exam: Clear Bilaterally, Breath Sounds Equal (Flory Duarte) Cardiology CV Exam: Regular, Normal Sinus Rhythm (Flory Duarte) Gastrointestinal/Abdomen GI Exam: Soft, Non-Tender, Bowel Sounds Present (Flory Duarte) Musculoskeletal MS Exam: Joints Intact, Atrophy (Flory Duarte) Integumentary Skin Exam: Warm, Dry Skin Remarks multiple bruises on face, left side also abrasions to lower legs, left more (Flory Duarte) Extremeties Extremities Exam: No Edema, Pedal Pulses Palpable (Flory Duarte) Neurologic Neuro Exam: Awake, Oriented, Moving All Extremities (Flory Duarte) Psychiatric Psych Exam: Appropriate Responses (Flory Duarte) Assessment/Plan Discussed Condition With: Patient Assessment Summary: Anemia of CKD Problem List: (1) End stage renal disease Plan: continue PD, her regimen consists of 4 cycles, 2000 ml, 1.5% solution, 9 hrs treatment time, no last fill catheter appears to be functioning well persistent hypokalemia, due to decreased oral intake and diarrhea, IV replacement ordered phosphorus is also low, Kphos ordered po x 1 avoid IVF, gadolinium is contraindicated high protein diet encouraged (2) Seizures Plan: no hx of this in the past. CT negative, EEG showing encephalopathy no seizure (3) Hyponatremia Plan: improving, monitor (4) Metabolic bone disease Plan: not on binders , replacement given repeat labs (5) Anemia Plan: epogen given (6) C. difficile diarrhea Plan: PO vancomycin started, also on flagyl IV with contact precautions (Flory Duarte) Problem List: (1) End stage renal disease Plan: continue PD, her regimen consists of 4 cycles, 2000 ml, 1.5% solution, 9 hrs treatment time, no last fill catheter appears to be functioning well persistent hypokalemia, due to decreased oral intake and diarrhea, IV replacement ordered phosphorus is also low, Kphos ordered po x 1 avoid IVF, gadolinium is contraindicated high protein diet encouraged (2) Seizures Plan: no hx of this in the past. CT negative, EEG showing encephalopathy no seizure (3) Hyponatremia Plan: improving, monitor (4) Metabolic bone disease Plan: not on binders , replacement given repeat labs (5) Anemia Plan: epogen given (6) C. difficile diarrhea Plan: PO vancomycin started, also on flagyl IV with contact precautions Plan patient was seen and examined. Needs nutritional support. Give Epogen for anemia. (Mahamed Pedersen MD) Flory Duarte May 16, 2017 11:28 Mahamed Pedersen MD May 16, 2017 14:32
[2017-05-16] MEDS ORDERED: POTASSIUM PHOSPHATE MONOBASIC 500 MG TAB PO ONE (11:30)
[2017-05-16] MEDS: ONDANSETRON HCL 4 MG/2 ML VIAL IVP PRN (11:44)
[2017-05-16] MEDS ORDERED: EPOETIN ALFA 10,000 UNITS/ML VIAL SQ SCH (14:45)
--- NOTE | 2017-05-16 15:01 | RADRPT ---
EXAM DATE/TIME: 05/16/2017 14:31 [facility] COMPARISON: No previous studies available for comparison. INDICATIONS : Left shoulder pain. MEDICAL HISTORY : Fx left shoulder.Cardiovascular disease. Hypertension. Diabetes mellitus type 2. SURGICAL HISTORY : Coronary Artery stent. ENCOUNTER: Initial ACUITY: 1 day PAIN SCORE: 0/10 LOCATION: Left Shoulder. 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 There is no dislocation or acute fractur e. CONCLUSION: Chronic changes and no evidence for acute fracture. García Lynn MD on May 16, 2017 at 14:59 Board Certified Radiologist. This report was verified electronically.
[2017-05-16 15:42] LABS: POTASSIUM 3.3 MEQ/L (3.5-5.1)
[2017-05-16] MEDS: REMOVE OLD PATCH T-DERMAL SCH (21:34)
[2017-05-17] VITALS (7 sets, daily range): BP systolic 108–165; BP diastolic 54–89; PULSE 67–88; RESP 17–20; TEMP 97.8–99.3; O2SAT 95–100
[2017-05-17] MEDS: metroNIDAZOLE 500 MG INJ 100 ML IV SCH ×3 (04:39→22:18)
[2017-05-17 07:36] LABS: MEAN CELL VOLUME 99.1 FL (80.0-100.0); MEAN CORPUSCULAR HEMOGLOBIN 31.8 PG (27.0-34.0); MEAN CORPUSCULAR HGB CONC 32.1 % (32.0-36.0); PLATELET COUNT 290 TH/MM3 (150-450); RED BLOOD COUNT 3.23 MIL/MM3 (4.00-5.30); RED CELL DISTRIBUTION WIDTH 17.9 % (11.6-17.2); REVIEW FLAG FINAL; WHITE BLOOD COUNT 19.3 TH/MM3 (4.0-11.0)
[2017-05-17 08:27] LABS: BICARBONATE 29.2 MEQ/L (21.0-32.0); MAGNESIUM 1.7 MG/DL (1.5-2.5)
[2017-05-17 08:43] LABS: POTASSIUM 2.9 MEQ/L (3.5-5.1)
[2017-05-17] MEDS: SODIUM CHLORIDE 0.9% FLUSH 10 ML FLUSH IV FLUSH SCH ×2 (09:00→22:18)
[2017-05-17] MEDS: NICOTINE 14 MG/24 HR PATCH T-DERMAL SCH (09:00)
[2017-05-17] MEDS ORDERED: POTASSIUM CHLOR 20 MEQ PREMIX 100 ML IV ONE (09:00)
[2017-05-17] MEDS: ONDANSETRON HCL 4 MG/2 ML VIAL IVP PRN (09:53)
[2017-05-17] MEDS: LACTOBACILLUS ACIDOPHILUS TAB PO SCH ×2 (10:10→22:15)
[2017-05-17] MEDS: VANCOMYCIN 500 MG VIAL (FOR ORAL USE ONLY) PO SCH ×4 (10:10→22:15)
--- NOTE | 2017-05-17 12:34 | HHI.PR ---
Subjective Remarks The pt has no acute complaints. She wanted to know where she got C diff from. She denied any pain. Objective Vitals Vital Signs Date Time Temp Pulse Resp B/P Pulse Ox O2 Delivery O2 Flow Rate FiO2 05/17/17 08:00 98.1 74 17 165/72 95 05/17/17 04:00 98.1 69 20 108/54 98 05/17/17 04:00 87 05/17/17 00:00 98.8 74 20 120/60 97 05/16/17 20:00 99.6 94 20 131/62 98 05/16/17 17:53 97 21 05/16/17 16:00 72 17 153/64 97 I/O 05/16/17 05/16/17 05/16/17 05/17/17 05/17/17 05/17/17 07:00 15:00 23:00 07:00 15:00 23:00 Intake Total 360 ml 120 ml Output Total 1147 ml 444 ml Balance -787 ml 120 ml -444 ml Intake Oral 360 ml 120 ml Peritoneal Fluid 1147 ml 444 ml # Voids 3 0 # Bowel Movements 1 0 Result Diagram: 05/17/17 0700 05/17/17 0700 Imaging Last Impressions Shoulder X-Ray 05/16/17 0000 Signed Impressions: Service Date/Time: Tuesday, May 16, 2017 14:31 - CONCLUSION: Chronic changes and no evidence for acute fracture. García Lynn MD Head CT 05/13/17 0000 Signed Impressions: Service Date/Time: Saturday, May 13, 2017 16:11 - CONCLUSION: Stable chronic changes. García Lynn MD Objective Remarks GENERAL: NAD, resting comfortably. SKIN: Warm and dry. HEAD: Normocephalic. EYES: No scleral icterus. No injection or drainage. NECK: Supple, trachea midline. No JVD or lymphadenopathy. CARDIOVASCULAR: Regular rate and rhythm without murmurs, gallops, or rubs. RESPIRATORY: Breath sounds equal bilaterally. No accessory muscle use. GASTROINTESTINAL: Abdomen soft, non-tender, nondistended. MUSCULOSKELETAL: Left shoulder tender to palpation. No cyanosis, or edema. BACK: Nontender without obvious deformity. No CVA tenderness. NEURO: No gross deficits, confused. PSYCH: Calm. Medications and IVs Current Medications Medications (Trade) Dose Ordered Sig/Melinda Route Start Time Stop Time Status Last Admin (NS Flush) 2 ml UNSCH PRN IV FLUSH 05/13/17 18:15 (NS Flush) 2 ml BID IV FLUSH 05/13/17 21:00 05/17/17 09:00 (Tylenol) 650 mg Q4H PRN PO 05/13/17 18:15 (Zofran Inj) 4 mg Q6H PRN IVP 05/13/17 18:15 05/17/17 09:53 (Tylenol) 650 mg Q6H PRN PO 05/13/17 18:15 05/14/17 00:12 (Narcan Inj) 0.4 mg UNSCH PRN IV 05/13/17 18:15 (Milk Of Magnesia Liq) 30 ml Q12H PRN PO 05/13/17 18:15 (Lactinex) 1 tab Q12HR PO 05/13/17 21:00 05/17/17 10:10 Sodium Chloride 10 ml 10 ml UNSCH PRN IV FLUSH 05/14/17 11:45 (Flagyl 500 Mg Inj) 100 ml @ 100 mls/hr Q8H IV 05/14/17 12:00 05/17/17 04:39 (Habitrol 14 Mg Patch.24 Hr) 1 patch DAILY T-DERMAL 05/14/17 18:00 05/17/17 09:00 Miscellaneous Information 1 HS T-DERMAL 05/14/17 21:00 05/16/17 21:34 (VANCOMYCIN for oral use only) 250 mg QID PO 05/15/17 13:00 05/17/17 10:10 A/P Problem List: (1) Metabolic encephalopathy ICD Code: G93.41 Status: Acute (2) C. difficile diarrhea ICD Code: A04.7 Status: Acute (3) Anemia in CKD (chronic kidney disease) ICD Code: N18.9 Status: Acute (4) ESRD on peritoneal dialysis ICD Code: N18.6 Status: Acute Assessment and Plan Acute encephalopathy Likely metabolic, now resolved. She had questionable seizure activity. EEG without any evidence of seizure. - neuro checks. - seizure precautions. - Continue to hold on starting any antiepileptic drug. - PT/ OT. C. difficile diarrhea C. difficile toxin PCR positive. - Continue Flagyl 500 mg every 8 IV and by mouth vancomycin for 14 days total treatment. ESRD on PD Nephrology consultation appreciated - Continue with peritoneal dialysis. Anemia in chronic kidney disease Treated with Epogen during dialysis. - follow CBC as needed. Hypokalemia Potassium level persistently low. Likely secondary to decreased by mouth intake and diarrhea. - Replace with IV KCl and monitor. - check a magnesium level. Left shoulder pain Has had recent falls. - will check x-ray to rule out fracture. - PT eval. DVT prophylaxis: SCDs Discharge Planning Anticipate SNF in 1-2 days when potassium level stabilizes Brandon Mobley DO May 17, 2017 12:34
--- NOTE | 2017-05-17 16:02 | HHI.NPPN ---
Subjective General Problems: Anemia Renal Failure: Chronic, End Stage Renal Disease Review of Systems Gastrointestinal Gastrointestinal: Diarrhea Objective Data Data 05/16/17 05/17/17 19:00 07:00 Intake Total 360 ml 120 ml Output Total 1147 ml Balance -787 ml 120 ml Intake Oral 360 ml 120 ml Peritoneal Fluid 1147 ml # Voids 3 0 # Bowel Movements 1 0 Vital Signs Date Time Temp Pulse Resp B/P Pulse Ox O2 Delivery O2 Flow Rate FiO2 05/17/17 13:19 67 05/17/17 12:00 97.8 70 19 134/63 95 05/17/17 08:00 98.1 74 17 165/72 95 05/17/17 04:00 98.1 69 20 108/54 98 05/17/17 04:00 87 05/17/17 00:00 98.8 74 20 120/60 97 05/16/17 20:00 99.6 94 20 131/62 98 05/16/17 17:53 97 21 -: 05/17/17 0700 05/17/17 0700 Tubes & Lines: Tenckhoff Catheter Physical Exam General Appearance: No Acute Distress, Comfortable, Malnourished Throat Throat Exam: Oral Mucosa [place] & Moist Pulmonary Resp Exam: Clear Bilaterally, Breath Sounds Equal Cardiology CV Exam: Regular, Normal Sinus Rhythm Gastrointestinal/Abdomen GI Exam: Soft, Non-Tender, Bowel Sounds Present Musculoskeletal MS Exam: Joints Intact, Atrophy Integumentary Skin Exam: Warm, Dry Extremeties Extremities Exam: No Edema, Pedal Pulses Palpable Neurologic Neuro Exam: Awake, Oriented, Moving All Extremities Psychiatric Psych Exam: Appropriate Responses Assessment/Plan Discussed Condition With: Patient Assessment Summary: Anemia of CKD Problem List: (1) End stage renal disease Plan: continue PD, her regimen consists of 4 cycles, 2000 ml, 1.5% solution, 9 hrs treatment time, no last fill catheter appears to be functioning well persistent hypokalemia, due to decreased oral intake and diarrhea, IV replacement ordered kcl 20 meq given avoid IVF, gadolinium is contraindicated high protein diet encouraged (2) Seizures Plan: no hx of this in the past. CT negative, EEG showing encephalopathy no seizure (3) Hyponatremia Plan: improving, monitor (4) Metabolic bone disease Plan: not on binders , replacement given repeat labs (5) Anemia Plan: epogen given (6) C. difficile diarrhea Plan: PO vancomycin started, also on flagyl IV with contact precautions Kanwal,Sajid MD May 17, 2017 16:02
[2017-05-17] MEDS: REMOVE OLD PATCH T-DERMAL SCH (21:00)
[2017-05-18] VITALS (7 sets, daily range): BP systolic 123–161; BP diastolic 60–76; PULSE 81–96; RESP 18; TEMP 95.7–98.5; O2SAT 97–100
[2017-05-18] MEDS: SODIUM CHLORIDE 0.9% FLUSH 10 ML FLUSH IV FLUSH PRN (03:41)
[2017-05-18] MEDS: metroNIDAZOLE 500 MG INJ 100 ML IV SCH ×3 (03:41→22:46)
[2017-05-18 08:21] LABS: HEMATOCRIT 32.5 % (35.0-46.0); MEAN CELL VOLUME 99.9 FL (80.0-100.0); MEAN CORPUSCULAR HEMOGLOBIN 31.9 PG (27.0-34.0); PLATELET COUNT 312 TH/MM3 (150-450); RED BLOOD COUNT 3.26 MIL/MM3 (4.00-5.30); RED CELL DISTRIBUTION WIDTH 17.7 % (11.6-17.2); REVIEW FLAG FINAL; WHITE BLOOD COUNT 16.9 TH/MM3 (4.0-11.0)
[2017-05-18 09:08] LABS: BICARBONATE 29.2 MEQ/L (21.0-32.0); MAGNESIUM 1.6 MG/DL (1.5-2.5); POTASSIUM 3.4 MEQ/L (3.5-5.1)
[2017-05-18] MEDS: VANCOMYCIN 500 MG VIAL (FOR ORAL USE ONLY) PO SCH ×4 (09:31→22:46)
[2017-05-18] MEDS: NICOTINE 14 MG/24 HR PATCH T-DERMAL SCH (09:31)
[2017-05-18] MEDS: SODIUM CHLORIDE 0.9% FLUSH 10 ML FLUSH IV FLUSH SCH ×2 (09:31→22:47)
[2017-05-18] MEDS: LACTOBACILLUS ACIDOPHILUS TAB PO SCH ×2 (09:31→22:45)
[2017-05-18] MEDS ORDERED: POTASSIUM CHLORIDE 20 MEQ CONTROLLED RELEASE TAB PO ONE (15:00)
--- NOTE | 2017-05-18 15:02 | HHI.PR ---
Subjective Remarks The patient wanted her fluid restriction lifted and more food options. She was wondering why she had to be on contact precautions. She said she has been having bowel movements but not too much. Feeling well. Discussed with case management. Objective Vitals Vital Signs Date Time Temp Pulse Resp B/P Pulse Ox O2 Delivery O2 Flow Rate FiO2 05/18/17 12:00 95.7 85 18 161/76 99 05/18/17 08:00 97.5 96 18 149/70 97 05/18/17 07:00 88 05/18/17 04:00 98.5 81 18 123/60 98 05/18/17 00:00 97.5 85 18 143/72 100 05/17/17 20:00 99.3 88 18 136/89 100 05/17/17 16:00 98.7 72 19 161/72 96 I/O 05/17/17 05/17/17 05/17/17 05/18/17 05/18/17 05/18/17 07:00 15:00 23:00 07:00 15:00 23:00 Intake Total 120 ml 480 ml Output Total 444 ml 955 ml Balance 120 ml 36 ml -955 ml Intake Oral 120 ml 480 ml Peritoneal Fluid 444 ml 955 ml # Voids 0 2 4 # Bowel Movements 0 0 2 Result Diagram: 05/18/17 0809 05/18/17 0809 Imaging Last Impressions Shoulder X-Ray 05/16/17 0000 Signed Impressions: Service Date/Time: Tuesday, May 16, 2017 14:31 - CONCLUSION: Chronic changes and no evidence for acute fracture. García Lynn MD Head CT 05/13/17 0000 Signed Impressions: Service Date/Time: Saturday, May 13, 2017 16:11 - CONCLUSION: Stable chronic changes. García Lynn MD Objective Remarks GENERAL: NAD, resting comfortably. SKIN: Warm and dry. HEAD: Normocephalic. EYES: No scleral icterus. No injection or drainage. NECK: Supple, trachea midline. No JVD or lymphadenopathy. CARDIOVASCULAR: Regular rate and rhythm without murmurs, gallops, or rubs. RESPIRATORY: Breath sounds equal bilaterally. No accessory muscle use. GASTROINTESTINAL: Abdomen soft, slightly tender, nondistended. MUSCULOSKELETAL: Left shoulder tender to palpation. No cyanosis, or edema. BACK: Nontender without obvious deformity. No CVA tenderness. NEURO: No gross deficits, confused. PSYCH: Mood and affect appropriate. Medications and IVs Current Medications Medications (Trade) Dose Ordered Sig/Melinda Route Start Time Stop Time Status Last Admin (NS Flush) 2 ml UNSCH PRN IV FLUSH 05/13/17 18:15 05/18/17 03:41 (NS Flush) 2 ml BID IV FLUSH 05/13/17 21:00 05/18/17 09:31 (Tylenol) 650 mg Q4H PRN PO 05/13/17 18:15 (Zofran Inj) 4 mg Q6H PRN IVP 05/13/17 18:15 05/17/17 09:53 (Tylenol) 650 mg Q6H PRN PO 05/13/17 18:15 05/14/17 00:12 (Narcan Inj) 0.4 mg UNSCH PRN IV 05/13/17 18:15 (Milk Of Magnesia Liq) 30 ml Q12H PRN PO 05/13/17 18:15 (Lactinex) 1 tab Q12HR PO 05/13/17 21:00 05/18/17 09:31 Sodium Chloride 10 ml 10 ml UNSCH PRN IV FLUSH 05/14/17 11:45 (Flagyl 500 Mg Inj) 100 ml @ 100 mls/hr Q8H IV 05/14/17 12:00 05/18/17 12:20 (Habitrol 14 Mg Patch.24 Hr) 1 patch DAILY T-DERMAL 05/14/17 18:00 05/18/17 09:31 Miscellaneous Information 1 HS T-DERMAL 05/14/17 21:00 05/17/17 21:00 (VANCOMYCIN for oral use only) 250 mg QID PO 05/15/17 13:00 05/18/17 12:18 A/P Problem List: (1) Metabolic encephalopathy ICD Code: G93.41 Status: Acute (2) C. difficile diarrhea ICD Code: A04.7 Status: Acute (3) Anemia in CKD (chronic kidney disease) ICD Code: N18.9 Status: Acute (4) ESRD on peritoneal dialysis ICD Code: N18.6 Status: Acute Assessment and Plan Acute encephalopathy Likely metabolic, now resolved. She had questionable seizure activity. EEG without any evidence of seizure. - neuro checks. - seizure precautions. - Continue to hold on starting any antiepileptic drug. - PT/ OT. C. difficile diarrhea C. difficile toxin PCR positive. - Continue Flagyl 500 mg every 8 IV and by mouth vancomycin for 14 days total treatment. ESRD on PD Nephrology consultation appreciated - Continue with peritoneal dialysis. Anemia in chronic kidney disease Treated with Epogen during dialysis. - follow CBC as needed. Hypokalemia Potassium level persistently low. Likely secondary to decreased by mouth intake and diarrhea. Improving. - Replace with KCl and monitor. - treat underlying diarrhea. HTN Blood pressure fluctuates. - Continue to monitor. DVT prophylaxis: SCDs Discharge Planning sales team manager assisting with trying to place patient in long care facility. Anticipate 1-2 days Brandon Mobley DO May 18, 2017 15:02
--- NOTE | 2017-05-18 15:29 | HHI.NPPN ---
Subjective General Problems: Anemia Renal Failure: Chronic, End Stage Renal Disease Review of Systems Gastrointestinal Gastrointestinal: Diarrhea Objective Data Data 05/17/17 05/18/17 19:00 07:00 Intake Total 480 ml Output Total 444 ml Balance 36 ml Intake Oral 480 ml Peritoneal Fluid 444 ml # Voids 2 4 # Bowel Movements 0 2 Vital Signs Date Time Temp Pulse Resp B/P Pulse Ox O2 Delivery O2 Flow Rate FiO2 05/18/17 12:00 95.7 85 18 161/76 99 05/18/17 08:00 97.5 96 18 149/70 97 05/18/17 07:00 88 05/18/17 04:00 98.5 81 18 123/60 98 05/18/17 00:00 97.5 85 18 143/72 100 05/17/17 20:00 99.3 88 18 136/89 100 05/17/17 16:00 98.7 72 19 161/72 96 -: 05/18/17 0809 05/18/17 0809 Tubes & Lines: Tenckhoff Catheter Physical Exam General Appearance: No Acute Distress, Comfortable, Malnourished Throat Throat Exam: Oral Mucosa [place] & Moist Pulmonary Resp Exam: Clear Bilaterally, Breath Sounds Equal Cardiology CV Exam: Regular, Normal Sinus Rhythm Gastrointestinal/Abdomen GI Exam: Soft, Non-Tender, Bowel Sounds Present Musculoskeletal MS Exam: Joints Intact, Atrophy Integumentary Skin Exam: Warm, Dry Extremeties Extremities Exam: No Edema, Pedal Pulses Palpable Neurologic Neuro Exam: Awake, Oriented, Moving All Extremities Psychiatric Psych Exam: Appropriate Responses Assessment/Plan Discussed Condition With: Patient Assessment Summary: Anemia of CKD Problem List: (1) End stage renal disease Plan: continue PD, her regimen consists of 4 cycles, 2000 ml, 1.5% solution, 9 hrs treatment time, no last fill catheter appears to be functioning well UF 955 persistent hypokalemia, due to decreased oral intake and diarrhea, IV replacement ordered kcl 20 meq was ordered KCL 8meq bid ordered avoid IVF, gadolinium is contraindicated high protein diet encouraged (2) Seizures Plan: no hx of this in the past. CT negative, EEG showing encephalopathy no seizure (3) Hyponatremia Plan: improving, monitor (4) Metabolic bone disease Plan: not on binders , replacement given repeat labs (5) Anemia Plan: epogen given (6) C. difficile diarrhea Plan: PO vancomycin flagyl IV with contact precautions Paul Schofield MD May 18, 2017 15:29
[2017-05-18] MEDS: POTASSIUM CHLORIDE 8 MEQ CAP PO SCH (22:46)
[2017-05-19] VITALS: BP 132/76; PULSE 82; RESP 18; TEMP 96.7; O2SAT 98
[2017-05-19] MEDS: ONDANSETRON HCL 4 MG/2 ML VIAL IVP PRN (02:48)
[2017-05-19] MEDS: SODIUM CHLORIDE 0.9% FLUSH 10 ML FLUSH IV FLUSH PRN (02:48)
[2017-05-19] MEDS: metroNIDAZOLE 500 MG INJ 100 ML IV SCH ×2 (02:49→12:25)
[2017-05-19 04:00] VITALS: BP 137/80; PULSE 84; RESP 18; TEMP 98.8; O2SAT 98
[2017-05-19 06:07] VITALS: PULSE 92
[2017-05-19 08:05] VITALS: BP 152/81; PULSE 93; RESP 18; TEMP 99.3; O2SAT 99
[2017-05-19] MEDS: SODIUM CHLORIDE 0.9% FLUSH 10 ML FLUSH IV FLUSH SCH (09:38)
[2017-05-19] MEDS: LACTOBACILLUS ACIDOPHILUS TAB PO SCH (09:38)
[2017-05-19] MEDS: POTASSIUM CHLORIDE 8 MEQ CAP PO SCH (09:39)
[2017-05-19] MEDS: VANCOMYCIN 500 MG VIAL (FOR ORAL USE ONLY) PO SCH ×3 (09:39→16:56)
[2017-05-19] MEDS: NICOTINE 14 MG/24 HR PATCH T-DERMAL SCH (09:44)
[2017-05-19] MEDS ORDERED: VANC250C2 PO (10:26)
[2017-05-19] MEDS ORDERED: POTA8CAP PO (10:26)
[2017-05-19] MEDS ORDERED: METR-1 PO (10:26)
[2017-05-19] MEDS ORDERED: NICO14DI23 T-DERMAL (10:26)
--- NOTE | 2017-05-19 10:30 | HHI.DCPOC ---
Discharge Care Plan Diagnosis: (1) ESRD on peritoneal dialysis (2) Anemia in CKD (chronic kidney disease) (3) C. difficile diarrhea (4) Metabolic bone disease (5) Metabolic encephalopathy (6) Physical deconditioning (7) Paroxysmal atrial fibrillation Goals to Promote Your Health * To prevent worsening of your condition and complications * To maintain your health at the optimal level Directions to Meet Your Goals Take your medications as prescribed Follow your dietary instruction Follow activity as directed Keep your appointments as scheduled Take your immunizations and boosters as scheduled If your symptoms worsen call your PCP, if no PCP go to Urgent Care Center or Emergency Room Smoking is Dangerous to Your Health. Avoid second hand smoke Call the 24-hour hour crisis hotline for domestic abuse at Brandon Mobley DO May 19, 2017 10:30
--- NOTE | 2017-05-19 10:31 | HHI.FF ---
Face to Face Verification Diagnosis: (1) Physical deconditioning (2) Paroxysmal atrial fibrillation (3) ESRD on peritoneal dialysis (4) Anemia in CKD (chronic kidney disease) (5) C. difficile diarrhea (6) Metabolic bone disease Physical Therapy Order: Evaluate and Treat, Improve ambulation, Strength and gait training Occupational Therapy Order: Evaluate and Treat, Improve ADL, Gross motor coordination, Fine motor coordination Home Health Nursing Order: Medical education Signs/symptoms of disease process Medication education-adverse effect Nursing assessment with vital signs I have seen patient Adrienne Louise on 05/19/17. My clinical findings support the need for the requested home health care services because: Ltd mobility - disease progression Deconditioned w/ increased weakness Med compliance is questionable Limited ability to care for self Need for psychosocial assistance Impaired cognition/judgement High risk of falls I certify that my clinical findings support that this patient is homebound because: Impaired cognitive ability/safety Unsteady gait/balance Unsafe to leave home unassisted Need for psychosocial assistance Brandon Mobley DO May 19, 2017 10:31
--- NOTE | 2017-05-19 10:45 | HHI.DS ---
Discharge Summary Admission Date May 13, 2017 at 18:08 Discharge Date: May 19, 2017 Admitting Diagnosis seizures/hyponatremia/hypokalemia (1) Metabolic encephalopathy ICD Code: G93.41 Diagnosis: Principal (2) C. difficile diarrhea ICD Code: A04.7 Diagnosis: Principal (3) Anemia in CKD (chronic kidney disease) ICD Code: N18.9 (4) ESRD on peritoneal dialysis ICD Code: N18.6 Diagnosis: Principal Procedures None Brief History - From Admission Written by Bob Lara, acting as scribe for Dr. Hou on 05/13/17 at 17:54. 71-year-old female with a past medical history of DM, COPD, HTN, HLD, CAD, CVA, ESRD on PD who was sent from SNF for seizure. The patient is currently disoriented and a poor historian. She is only providing one-word answers. Thus , much of the history is obtained from the medical record and ED communication. The patient states that she presented for nausea. She has bilateral arm pain. She doesn't voice any other complaints at this time. Reportedly the patient is normally oriented and manages her own peritoneal dialysis at home. Apparently she has had acute mental status change sometime in the last week. She was sent to SNF one week. Today the patient was noted to have rigidity lasting approximately 30 seconds that apparently looked like seizure activity, SNF records reviewed. Apparently she has had multiple falls recently. CBC/BMP: 05/18/17 0809 05/18/17 0809 Significant Findings Laboratory Tests Test 05/16/17 05/17/17 05/18/17 13:55 07:00 08:09 Potassium Level 3.3 MEQ/L 2.9 MEQ/L 3.4 MEQ/L (3.5-5.1) (3.5-5.1) (3.5-5.1) Blood Urea Nitrogen 34 MG/DL (7-18) 34 MG/DL (7-18) 37 MG/DL (7-18) Creatinine 4.78 MG/DL 4.30 MG/DL 4.32 MG/DL (0.50-1.00) (0.50-1.00) (0.50-1.00) Estimat Glomerular Filtration 9 ML/MIN (>89) 10 ML/MIN (>89) 10 ML/MIN (>89) Rate Calcium Level 7.5 MG/DL 7.7 MG/DL 8.2 MG/DL (8.5-10.1) (8.5-10.1) (8.5-10.1) White Blood Count 19.3 TH/MM3 16.9 TH/MM3 (4.0-11.0) (4.0-11.0) Red Blood Count 3.23 MIL/MM3 3.26 MIL/MM3 (4.00-5.30) (4.00-5.30) Hemoglobin 10.3 GM/DL 10.4 GM/DL (11.6-15.3) (11.6-15.3) Hematocrit 32.0 % 32.5 % (35.0-46.0) (35.0-46.0) Red Cell Distribution Width 17.9 % 17.7 % (11.6-17.2) (11.6-17.2) Random Glucose 127 MG/DL 114 MG/DL (74-106) (74-106) Imaging Last Impressions Shoulder X-Ray 05/16/17 0000 Signed Impressions: Service Date/Time: Tuesday, May 16, 2017 14:31 - CONCLUSION: Chronic changes and no evidence for acute fracture. García Lynn MD Head CT 05/13/17 0000 Signed Impressions: Service Date/Time: Saturday, May 13, 2017 16:11 - CONCLUSION: Stable chronic changes. García Lynn MD PE at Discharge GENERAL: NAD, resting comfortably. SKIN: Warm and dry. HEAD: Normocephalic. EYES: No scleral icterus. No injection or drainage. NECK: Supple, trachea midline. No JVD or lymphadenopathy. CARDIOVASCULAR: Regular rate and rhythm. Systolic murmur appreciated. RESPIRATORY: Breath sounds equal bilaterally. No accessory muscle use. GASTROINTESTINAL: Abdomen soft, slightly tender, nondistended. MUSCULOSKELETAL: Left shoulder tender to palpation. No cyanosis, or edema. BACK: Nontender without obvious deformity. No CVA tenderness. NEURO: No gross deficits, confused. PSYCH: Mood and affect appropriate. Pt update on day of discharge The patient was feeling well and was anxious to go home. Her family was at the bedside and requested discharge home so that 24-hour care could be established. The patient's daughter stated that she will stay with the patient until 24- hour care was set up. Discussed with case management and nursing. Hospital Course Acute encephalopathy She had questionable seizure activity. EEG without any evidence of seizure. Neurology was consulted. She was placed on neuro checks and seizure precautions. Her confusion improved. She worked with PT/ OT. She will be discharged with home health care. C. difficile diarrhea C. difficile toxin PCR positive. She was started on Flagyl 500 mg every 8 hours IV and by mouth vancomycin. She will complete 14 days of treatment. Symptoms have resolved. ESRD on PD Nephrology was consulted. She was continued on peritoneal dialysis. 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 Anemia in chronic kidney disease Treated with Epogen during dialysis. Her hemoglobin remained stable. Hypokalemia Potassium level persistently low secondary to decreased by mouth intake and diarrhea. She received repletion and will be discharged on KCl supplementation. She will have a BMP checked in 2-3 days. Pt Condition on Discharge: Stable Discharge Disposition: Disch w/ Home Health Serv Discharge Time: > 30 minutes Discharge Instructions DIET: Follow Instructions for: Renal Failure Diet Activities you can perform: Weight Bearing as Kleber Follow up Referrals: Nephrology - 1 Week PCP Follow-up - 1 Week New Orders: BASIC METABOLIC PROF - 2-3 Days New Medications: Metronidazole (Flagyl) 500 Mg Tab 500 MG PO TID Infection #27 Ref 0 TAB Vancomycin (Vancomycin) 250 Mg Cap 250 MG PO QID Infection #36 Ref 0 CAP Nicotine (Eq Nicotine) 14 Mg/24 Hr Dis 1 PATCH T-DERMAL DAILY SMOKING #30 PATCH Potassium Chloride ER (Potassium Chloride ER) 8 Meq Cap 8 MEQ PO BID Potassium #28 CAP Continued Medications: Acetaminophen (Mapap) 325 Mg Tab 650 MG PO Q4HR PRN TEMP 100 OR HIGHER Ref 0 TAB Amiodarone (Amiodarone) 200 Mg Tab 200 MG PO DAILY Regulate Heart Beat #60 Ref [address] (Aspirin EC) 81 Mg Tabdr 81 MG PO DAILY cad Days 30 Ref 0 TAB Atorvastatin (Lipitor) 40 Mg Tab 40 MG PO HS Cholesterol Management TAB B-Complex W/ C & Folic Acid (Michelle-Jesse) 1 Tab 1 TAB PO DAILY TAB Bisacodyl Supp (Dulcolax Supp) 10 Mg Supp 10 MG RECTAL DAILY PRN IF NO BM x1 DAY AFTER MOM #12 Ref 0 SUPP Carbidopa-Levodopa (Sinemet) 10-100 Mg Tab 1 TAB PO Q8HR Parkinson Disease Mgmt #90 Ref 0 TAB Cinacalcet (Sensipar) 90 Mg Tab 90 MG PO DAILY TAB Clopidogrel (Plavix) 75 Mg Tab 75 MG PO DAILY Blood Clot Prevention #30 Ref 0 TAB Colchicine (Colchicine) 0.6 Mg Cap 0.6 MG PO DAILY Gout Ref 0 CAP Collagenase (Santyl) 250 Unit/Gm Oin 1 APPLIC TOPICAL DAILY Collagenase Topical (Santyl Topical) 250 Unit/Gm Oint 1 APPLIC TOPICAL DAILY PRN BED WOUND #15 Ref 0 GM Diphenhydramine (Diphenhydramine) 25 Mg Cap 25 MG PO Q6HR PRN ALLERGIES CAP Docusate Sodium (Colace) 100 Mg Capsule 100 MG PO BID Duloxetine DR (Cymbalta DR) 60 Mg Capdr 60 MG PO DAILY CAP Ezetimibe (Zetia) 10 Mg Tab 10 MG PO HS TAB Magnesium Citrate Liq (Magnesium Citrate Liq) 300 Ml Liq 296 ML PO DAILY PRN IF NO BM FROM FLEETS Ref 0 BOTTLE Magnesium Hydroxide Liq (Milk of Magnesia Liq) 400 Mg/5 Ml Susp 30 ML PO DAILY PRN IF NO BM WITHIN 3 DAYS #1 Ref 0 BOTTLE Megestrol Liq (Megestrol Liq) 40 Mg/Ml Susp 800 MG PO DAILY Days 30 Metoprolol Tartrate (Metoprolol Tartrate) 25 Mg Tab 25 MG PO Q12HR cad Days 30 Ref 0 TAB Ondansetron (Zofran) 4 Mg Tab 4 MG PO Q6HR PRN NAUSEA OR VOMITING Ref 0 TAB Sevelamer Carbonate (Renvela) 800 Mg Tab 2400 MG PO TIDPC TAKE WITH EACH MEAL Control phosphorous levels TAB Skin Protectants, Misc. (Lantiseptic Skin Protecta) 50 % Oin 1 APPLIC TOPICAL EACH SHIFT Discontinued Medications: Hydrocodone-Acetaminophen (Hydrocodone-Acetaminophen) 5-325 mg Tab 1 TAB PO Q4H PRN PAIN GREATER THAN 5 #20 TAB Brandon Mobley DO May 19, 2017 10:45
[2017-05-19] MEDS ORDERED: METOPROLOL TARTRATE 25 MG TAB PO SCH (11:45)
[2017-05-19] MEDS ORDERED: CLOPIDOGREL 75 MG TAB PO SCH (11:45)
[2017-05-19] MEDS ORDERED: COLCHICINE 0.6 MG TAB PO SCH (11:45)
[2017-05-19] MEDS ORDERED: DULoxetine HCl DR 60 MG CAP PO SCH (11:45)
[2017-05-19] MEDS ORDERED: AMIODARONE 200 MG TAB PO SCH (11:45)
[2017-05-19] MEDS ORDERED: ASPIRIN EC 81 MG TABEC PO SCH (11:45)
[2017-05-19] MEDS ORDERED: MEGESTROL ACETATE SUSP 400 MG/10 ML CUP PO SCH (12:00)
[2017-05-19] MEDS ORDERED: CINACALCET HYDROCHLORIDE 30 MG TAB PO SCH (12:00)
--- NOTE | 2017-05-19 12:06 | HHI.NPPN ---
Subjective General Problems: Anemia Renal Failure: Chronic, End Stage Renal Disease History of Present Illness Doing well. To be discharged today. (Flory Duarte) Review of Systems Gastrointestinal Gastrointestinal: Diarrhea (Flory Duarte) Objective Data Data 05/18/17 05/19/17 19:00 07:00 Output Total 955 ml Balance -955 ml Peritoneal Fluid 955 ml # Voids 3 2 # Bowel Movements 1 Vital Signs Date Time Temp Pulse Resp B/P Pulse Ox O2 Delivery O2 Flow Rate FiO2 05/19/17 08:05 99.3 93 18 152/81 99 05/19/17 06:07 92 05/19/17 04:00 98.8 84 18 137/80 98 05/19/17 00:00 96.7 82 18 132/76 98 05/18/17 20:00 96.3 86 18 134/74 100 05/18/17 16:00 98.0 81 18 149/68 100 (Flory Duarte) -: 05/18/17 0809 05/18/17 0809 Tubes & Lines: Tenckhoff Catheter (Flory Duarte) Physical Exam General Appearance: Well Developed, No Acute Distress, Comfortable, Malnourished ( Flory Duarte) Throat Throat Exam: Oral Mucosa Kane & Moist (Flory Duarte) Pulmonary Resp Exam: Clear Bilaterally, Breath Sounds Equal (Flory Duarte) Cardiology CV Exam: Regular, Normal Sinus Rhythm (Flory Duarte) Gastrointestinal/Abdomen GI Exam: Soft, Non-Tender, Bowel Sounds Present (Flory Duarte) Musculoskeletal MS Exam: Joints Intact, Atrophy (Flory Duarte) Integumentary Skin Exam: Warm, Dry Skin Remarks multiple bruises on face, left side also abrasions to lower legs, left more (Flory Duarte) Extremeties Extremities Exam: No Edema, Pedal Pulses Palpable (Flory Duarte) Neurologic Neuro Exam: Awake, Oriented, Moving All Extremities (Flory Duarte) Psychiatric Psych Exam: Appropriate Responses (Flory Duarte) Assessment/Plan Discussed Condition With: Patient Assessment Summary: Anemia of CKD Problem List: (1) End stage renal disease Plan: continue PD, her regimen consists of 4 cycles, 2000 ml, 1.5% solution, 9 hrs treatment time, no last fill catheter appears to be functioning well has had good UF with treatmetn she is stable for discharge her daughter will be trained to assist the patient with PD today we will follow in PD clinic (2) Seizures Plan: no hx of this in the past. CT negative, EEG showing encephalopathy no seizure (3) Hyponatremia Plan: improving, monitor (4) Metabolic bone disease Plan: not on binders (5) Anemia Plan: epogen given (6) C. difficile diarrhea Plan: PO vancomycin flagyl IV with contact precautions (Flory Duarte) Plan patient was seen and examined. Agree with above assessment and plan. It is unclear if she continue PD as she is becoming more and more debilitated and with some confusion. (Mahamed Pedersen MD) Flory Duarte May 19, 2017 12:06 Mahamed Pedersen MD May 20, 2017 10:15
[2017-05-19] MEDS: SEVELAMER CARBONATE 800 MG TAB PO SCH ×2 (12:24→16:55)
[2017-05-19 12:30] VITALS: BP 135/76; PULSE 90; RESP 18; TEMP 99.1; O2SAT 100
[2017-05-19] MEDS ORDERED: CARBIDOPA/LEVODOPA 10 MG/100 MG TAB PO SCH (14:00)
[2017-05-19 15:23] LABS: HEMATOCRIT 30.2 % (35.0-46.0); MEAN CORPUSCULAR HEMOGLOBIN 32.7 PG (27.0-34.0); MEAN CORPUSCULAR HGB CONC 32.4 % (32.0-36.0); PLATELET COUNT 301 TH/MM3 (150-450); RED BLOOD COUNT 2.99 MIL/MM3 (4.00-5.30); RED CELL DISTRIBUTION WIDTH 19.6 % (11.6-17.2); REVIEW FLAG FINAL; WHITE BLOOD COUNT 19.6 TH/MM3 (4.0-11.0)
[2017-05-19 15:42] LABS: BICARBONATE 29.6 MEQ/L (21.0-32.0); POTASSIUM 3.9 MEQ/L (3.5-5.1)
[2017-05-19 15:57] VITALS: BP 142/79; PULSE 83; RESP 18; TEMP 98.3; O2SAT 100
[2017-05-19] MEDS: ACETAMINOPHEN 325 MG TAB PO PRN (17:42)
== END 2017-05-19 17:59 | disposition home health service (06) | DRG 70 ==
LOC: NEPC 13:41 → NEDA 17:08 → OBSVTOIN 18:08 → N05A 21:33
PROVIDERS: ADMIT Hospitalist; ATTEND Hospitalist
DX: G93.41 Metabolic encephalopathy (principal); N18.6 End stage renal disease; A04.7 Enterocolitis due to Clostridium difficile; E46 Unspecified protein-calorie malnutrition; I12.0 Hypertensive chronic kidney disease with stage 5 chronic kidney disease or end stage renal disease; I13.11 Hypertensive heart and chronic kidney disease without heart failure, with stage 5 chronic kidney disease, or end stage renal disease; E87.1 Hypo-osmolality and hyponatremia; N25.81 Secondary hyperparathyroidism of renal origin; Z68.1 Body mass index [BMI] 19.9 or less, adult; R56.9 Unspecified convulsions; E88.89 Other specified metabolic disorders; D63.1 Anemia in chronic kidney disease; E87.6 Hypokalemia; J44.9 Chronic obstructive pulmonary disease, unspecified; I25.10 Atherosclerotic heart disease of native coronary artery without angina pectoris; E78.5 Hyperlipidemia, unspecified; E11.22 Type 2 diabetes mellitus with diabetic chronic kidney disease; R29.6 Repeated falls; M25.512 Pain in left shoulder; M10.9 Gout, unspecified; G20 Parkinson's disease; F17.210 Nicotine dependence, cigarettes, uncomplicated; F32.9 Major depressive disorder, single episode, unspecified; Z86.73 Personal history of transient ischemic attack (TIA), and cerebral infarction without residual deficits; Z88.0 Allergy status to penicillin; Z88.1 Allergy status to other antibiotic agents; Z88.2 Allergy status to sulfonamides; Z88.5 Allergy status to narcotic agent; Z91.041 Radiographic dye allergy status; Z91.013 Allergy to seafood; Z99.2 Dependence on renal dialysis
CPT/HCPCS: 70450; 73030; 80048; 80053; 80069; 81001; 82140; 83735; 85025; 85027; 87040; 87493; 90935; 93005; 95819; J2405; J2543; J3480; J7040; Q4081

== ENCOUNTER 2017-07-16 11:05 | Emergency (ER) | payer MEDICARE ==
[~2017-07-16] VITALS: Ht 157.5 cm; Wt 51.5 kg
[~2017-07-16 11:05] MED LIST changes: +COLL30T TOPICAL; +DULC10SU3 RECTAL; -HYDR-3516 PO; -LOTR15T TOPICAL; +MAGNSOL2 PO; +MAPA325T PO; +METR-1 PO; +MILKSUS PO; +NICO14DI23 T-DERMAL; +POTA8CAP PO; +VANC250C2 PO; +ZOFR4TAB PO; +[UNRECOGNIZED DRUG - CODE] TOPICAL
[2017-07-16 11:07] VITALS: BP 117/64; PULSE 86; RESP 24; TEMP 98.3; O2SAT 100
[2017-07-16 12:12] LABS: AUTOMATED NEUTROPHIL # 10.5 TH/MM3 (1.8-7.7); BASOPHIL # 0.1 TH/MM3 (0-0.2); BASOPHIL % 0.5 % (0.0-2.0); EOSINOPHIL # 0.2 TH/MM3 (0-0.4); EOSINOPHIL % 1.3 % (0.0-4.0); HEMO FLAGS DIFF FINAL; LYMPH % 12.4 % (9.0-44.0); LYMPHOCYTE # 1.7 TH/MM3 (1.0-4.8); MEAN CELL VOLUME 97.5 FL (80.0-100.0); MEAN CORPUSCULAR HGB CONC 33.9 % (32.0-36.0); MONO % 7.8 % (0.0-8.0); PLATELET COUNT 499 TH/MM3 (150-450); RED BLOOD COUNT 3.69 MIL/MM3 (4.00-5.30); RED CELL DISTRIBUTION WIDTH 15.4 % (11.6-17.2); WHITE BLOOD COUNT 13.5 TH/MM3 (4.0-11.0)
[2017-07-16 12:25] LABS: BICARBONATE 23.4 MEQ/L (21.0-32.0); POTASSIUM 3.1 MEQ/L (3.5-5.1)
[2017-07-16] MEDS ORDERED: ONDANSETRON HCL 4 MG/2 ML VIAL IV PUSH ONE (12:30)
[2017-07-16] MEDS ORDERED: MORPHINE SULFATE 4 MG/ML INJ IV PUSH ONE ×2 (12:30→14:00)
[2017-07-16 13:24] LABS: TOTAL BILIRUBIN ADULT 0.5 MG/DL (0.2-1.0)
[2017-07-16 13:27] VITALS: RESP 18
[2017-07-16] MEDS ORDERED: POTASSIUM CHLORIDE 20 MEQ CONTROLLED RELEASE TAB PO ONE (13:30)
[2017-07-16 13:32] LABS: INDIRECT BILIRUBIN 0.3 MG/DL (0.0-0.8)
[2017-07-16 13:33] LABS: MAGNESIUM 1.9 MG/DL (1.5-2.5)
[2017-07-16] MEDS ORDERED: CLINDAMYCIN 150 MG CAP PO ONE (14:00)
[2017-07-16] MEDS ORDERED: CLIN1CAP6 PO (14:11)
--- NOTE | 2017-07-16 14:12 | PD ---
HPI Chief Complaint: Wound/Suture/Staple Re-Check Time Seen by Provider: 12:11 Travel History International Travel<30 days: No Contact w/Intl Traveler<30days: No Traveled to known affect area: No History of Present Illness HPI Patient is a 71-year-old female presenting to the emergency department evaluation of right foot pain and skin infection. Initially there was a small pimple-like lesion to the dorsal aspect of the right foot, over the last 5 days it is not increasingly more red and painful. Family member states that her right second toe has become more blackened as well. Additionally the left first toe has an area of scabbing to it which according to them appears stable. Patient states that her pain is a 10 out of 10, she currently takes oxycodone at home. She denies any fever, chills, nausea, vomiting, headache, shortness of breath, claudication. Patient's past medical history significant for chronic kidney disease on peritoneal dialysis, asthma, CVA, hypertension, hyperlipidemia, peripheral artery disease, type 2 diabetes. PFSH Past Medical History Hx Anticoagulant Therapy: Yes Asthma: Yes Anxiety: Yes Depression: Yes Cardiovascular Problems: Yes High Cholesterol: Yes Congestive Heart Failure: No COPD: No Cerebrovascular Accident: Yes Coronary Artery Disease: Yes Diabetes: Yes Patient Takes Glucophage: No Dialysis: Yes (PERITONEAL) Diminished Hearing: No GERD: No Genitourinary: Yes Headaches: Yes Hepatitis: No Hiatal Hernia: No Hypertension: Yes Immune Disorder: No Kidney Stones: No Musculoskeletal: No Neurologic: Yes Psychiatric: No Reproductive: No Respiratory: No Immunizations Current: Yes Migraines: No Myocardial Infarction: Yes Renal Failure: Yes (PERITONEAL DIALYSIS) Seizures: No Thyroid Disease: No Ulcer: No PNEUMOCCOCAL Vaccine (Year): 1 Menopausal: Yes Past Surgical History Abdominal Surgery: Yes (CHOLECYSTECTOMY, PD access) AICD: No Appendectomy: Yes Arteriovenous Shunt: No Body Medical Devices: TENCKHOFF TUBE, peritoneal dialysis catheter Cardiac Surgery: No Cholecystectomy: Yes Ear Surgery: No Endocrine Surgery: No Eye Surgery: No Genitourinary Surgery: Yes (CYSTOPLASTY/RECTAL PLASTY) Gynecologic Surgery: No Insulin Pump: No Joint Replacement: No Oral Surgery: Yes Pacemaker: No Thoracic Surgery: No Tonsillectomy: Yes Other Surgery: Yes (dejon knee) Social History Alcohol Use: No Tobacco Use: Yes (ppd) Substance Use: No Allergies-Medications (Allergen,Severity, Reaction): Coded Allergies: Fish Containing Products (Verified Allergy, Severe, ANYPHYLAXIS, 07/16/17) ALL FISH PRODUCTS Sulfa (Sulfonamide Antibiotics) (Verified Allergy, Severe, 07/16/17) bran (Verified Allergy, Severe, Anaphylaxis, 07/16/17) cefazolin (Verified Allergy, Severe, 07/16/17) ANAPHYLAXIS cefepime (Verified Allergy, Severe, 07/16/17) ceftaroline fosamil (Unverified Allergy, Severe, 07/16/17) cephalexin (Verified Allergy, Severe, 07/16/17) diatrizoate meglumine (Verified Allergy, Severe, 07/16/17) gadobenic acid (Verified Allergy, Severe, 07/16/17) gadodiamide (Verified Allergy, Severe, 07/16/17) gadoteridol (Verified Allergy, Severe, 07/16/17) iodixanol (Verified Allergy, Severe, 07/16/17) iohexol (Verified Allergy, Severe, 07/16/17) penicillin G (Verified Allergy, Severe, 07/16/17) pentazocine (Unverified Allergy, Severe, 07/16/17) amoxicillin (Verified Allergy, Unknown, 07/16/17) doxycycline (Verified Allergy, Unknown, 07/16/17) minocycline (Verified Allergy, Unknown, 07/16/17) ofloxacin (Verified Allergy, Unknown, 07/16/17) propofol (Verified Allergy, Unknown, 07/16/17) tigecycline (Verified Allergy, Unknown, 07/16/17) Uncoded Allergies: BEANS (Allergy, Severe, 04/16/11) Reported Meds & Prescriptions Reported Meds & Active Scripts Active Flagyl (Metronidazole) 500 Mg Tab 500 Mg PO TID Vancomycin (Vancomycin HCl) 250 Mg Cap 250 Mg PO QID Potassium Chloride ER (Potassium Chloride) 8 Meq Cap 8 Meq PO BID Eq Nicotine (Nicotine) 14 Mg/24 Hr Dis 1 Patch T-DERMAL DAILY Megestrol Liq (Megestrol Acetate) 40 Mg/Ml Susp 800 Mg PO DAILY 30 Days Amiodarone (Amiodarone HCl) 200 Mg Tab 200 Mg PO DAILY Metoprolol Tartrate 25 Mg Tab 25 Mg PO Q12HR 30 Days Aspirin EC (Aspirin) 81 Mg Tabdr 81 Mg PO DAILY 30 Days Reported Santyl (Collagenase) 250 Unit/Gm Oin 1 Applic TOPICAL DAILY Lantiseptic Skin Protecta (Skin Protectants, Misc.) 50 % Oin 1 Applic TOPICAL EACH SHIFT Santyl Topical (Collagenase) 250 Unit/Gm Oint 1 Applic TOPICAL DAILY PRN Milk of Magnesia Liq (Magnesium Hydroxide) 400 Mg/5 Ml Susp 30 Ml PO DAILY PRN Dulcolax Supp (Bisacodyl) 10 Mg Supp 10 Mg RECTAL DAILY PRN Magnesium Citrate Liq (Magnesium Citrate) 300 Ml Liq 296 Ml PO DAILY PRN Zofran (Ondansetron HCl) 4 Mg Tab 4 Mg PO Q6HR PRN Mapap (Acetaminophen) 325 Mg Tab 650 Mg PO Q4HR PRN Colchicine 0.6 Mg Cap 0.6 Mg PO DAILY Colace (Docusate Sodium) 100 Mg Capsule 100 Mg PO BID Sinemet (Carbidopa/Levodopa) 10-100 Mg Tab 1 Tab PO Q8HR Plavix (Clopidogrel Bisulfate) 75 Mg Tab 75 Mg PO DAILY Sensipar (Cinacalcet) 90 Mg Tab 90 Mg PO DAILY Zetia (Ezetimibe) 10 Mg Tab 10 Mg PO HS Michelle-Jesse (B-Complex W/ C & Folic Acid) 1 Tab 1 Tab PO DAILY Renvela (Sevelamer Carbonate) 800 Mg Tab 2,400 Mg PO TIDPC TAKE WITH EACH MEAL Lipitor (Atorvastatin Calcium) 40 Mg Tab 40 Mg PO HS Diphenhydramine (Diphenhydramine HCl) 25 Mg Cap 25 Mg PO Q6HR PRN Cymbalta DR (Duloxetine HCl) 60 Mg Capdr 60 Mg PO DAILY Review of Systems Except as stated in HPI: all other systems reviewed are Neg HENT: No: Headaches Cardiovascular: No: Chest Pain or Discomfort Respiratory: No: Cough, Shortness of Breath Gastrointestinal: No: Nausea, Abdominal Pain Skin: Positive Change in Pigmentation, Positive Lesions Physical Exam Narrative GENERAL: Thin elderly female. Resting comfortably in no acute distress. SKIN: Warm and dry. There is a 6 x 4 cm area of induration to the dorsal aspect of the right foot with a 1 cm scabbed lesion in the center. The right second toe has an area of blackened eschar on the dorsal aspect. There is scabbed lesions to the left first toe. HEAD: Atraumatic. Normocephalic. EYES: Pupils equal and round. No scleral icterus. No injection or drainage. ENT: No nasal bleeding or discharge. Mucous membranes pink and moist. NECK: Trachea midline. No JVD. CARDIOVASCULAR: Regular rate and rhythm. Pedal pulses are audible by Doppler pulses, brisk less than 3 second capillary refill. RESPIRATORY: No accessory muscle use. Clear to auscultation. Breath sounds equal bilaterally. GASTROINTESTINAL: Abdomen soft, non-tender, nondistended. Hepatic and splenic margins not palpable. MUSCULOSKELETAL: Extremities without clubbing, cyanosis, or edema. No obvious deformities. Negative Homans sign bilaterally NEUROLOGICAL: Awake and alert. No obvious cranial nerve deficits. Motor grossly within normal limits. Five out of 5 muscle strength in the arms and legs. Normal speech. PSYCHIATRIC: Appropriate mood and affect; insight and judgment normal. Data Data Last Documented VS Vital Signs Date Time Temp Pulse Resp B/P (MAP) Pulse Ox O2 Delivery O2 Flow Rate FiO2 07/16/17 13:27 18 07/16/17 11:07 98.3 86 117/64 (81) 100 Room Air Orders Orders Complete Blood Count With Diff (07/16/17 11:27) Basic Metabolic Panel (Bmp) (07/16/17 11:27) Lactic Acid (07/16/17 11:27) Blood Culture (07/16/17 11:37) Hepatic Functional Panel (07/16/17 12:20) Magnesium (Mg) (07/16/17 12:20) C-Reactive Protein (Crp) (07/16/17 12:20) Westergren Sedimentation Rate (07/16/17 12:20) Foot, Complete ([id number]) (07/16/17 ) Foot, Complete ([id number]) (07/16/17 ) Iv Access Insert/Monitor (07/16/17 12:20) Morphine Inj (Morphine Inj) (07/16/17 12:30) Ondansetron Inj (Zofran Inj) (07/16/17 12:30) Potassium Chloride (Kcl) (07/16/17 13:30) Clindamycin (Cleocin) (07/16/17 14:00) Morphine Inj (Morphine Inj) (07/16/17 14:00) Labs Laboratory Tests Test 07/16/17 11:36 07/16/17 12:45 White Blood Count 13.5 TH/MM3 Red Blood Count 3.69 MIL/MM3 Hemoglobin 12.2 GM/DL Hematocrit 36.0 % Mean Corpuscular Volume 97.5 FL Mean Corpuscular Hemoglobin 33.0 PG Mean Corpuscular Hemoglobin Concent 33.9 % Red Cell Distribution Width 15.4 % Platelet Count 499 TH/MM3 Mean Platelet Volume 8.6 FL Neutrophils (%) (Auto) 78.0 % Lymphocytes (%) (Auto) 12.4 % Monocytes (%) (Auto) 7.8 % Eosinophils (%) (Auto) 1.3 % Basophils (%) (Auto) 0.5 % Neutrophils # (Auto) 10.5 TH/MM3 Lymphocytes # (Auto) 1.7 TH/MM3 Monocytes # (Auto) 1.0 TH/MM3 Eosinophils # (Auto) 0.2 TH/MM3 Basophils # (Auto) 0.1 TH/MM3 CBC Comment DIFF FINAL Differential Comment Blood Urea Nitrogen 33 MG/DL Creatinine 6.09 MG/DL Random Glucose 71 MG/DL Calcium Level 7.9 MG/DL Sodium Level 136 MEQ/L Potassium Level 3.1 MEQ/L Chloride Level 97 MEQ/L Carbon Dioxide Level 23.4 MEQ/L Anion Gap 16 MEQ/L Estimat Glomerular Filtration Rate 7 ML/MIN Lactic Acid Level 0.7 mmol/L Erythrocyte Sedimentation Rate 79 mm/hr Magnesium Level 1.9 MG/DL Total Bilirubin 0.5 MG/DL Direct Bilirubin 0.2 MG/DL Indirect Bilirubin 0.3 MG/DL Aspartate Amino Transf (AST/SGOT) 47 U/L Alanine Aminotransferase (ALT/SGPT) 19 U/L Alkaline Phosphatase 120 U/L C-Reactive Protein 2.22 MG/DL Total Protein 6.6 GM/DL Albumin 1.8 GM/DL [facility] Medical Decision Making Medical Screen Exam Complete: Yes Emergency Medical Condition: Yes Medical Record Reviewed: Yes Interpretation(s) Laboratory Tests Test 07/16/17 11:36 07/16/17 12:45 White Blood Count 13.5 TH/MM3 Red Blood Count 3.69 MIL/MM3 Hemoglobin 12.2 GM/DL Hematocrit 36.0 % Mean Corpuscular Volume 97.5 FL Mean Corpuscular Hemoglobin 33.0 PG Mean Corpuscular Hemoglobin Concent 33.9 % Red Cell Distribution Width 15.4 % Platelet Count 499 TH/MM3 Mean Platelet Volume 8.6 FL Neutrophils (%) (Auto) 78.0 % Lymphocytes (%) (Auto) 12.4 % Monocytes (%) (Auto) 7.8 % Eosinophils (%) (Auto) 1.3 % Basophils (%) (Auto) 0.5 % Neutrophils # (Auto) 10.5 TH/MM3 Lymphocytes # (Auto) 1.7 TH/MM3 Monocytes # (Auto) 1.0 TH/MM3 Eosinophils # (Auto) 0.2 TH/MM3 Basophils # (Auto) 0.1 TH/MM3 CBC Comment DIFF FINAL Differential Comment Blood Urea Nitrogen 33 MG/DL Creatinine 6.09 MG/DL Random Glucose 71 MG/DL Calcium Level 7.9 MG/DL Sodium Level 136 MEQ/L Potassium Level 3.1 MEQ/L Chloride Level 97 MEQ/L Carbon Dioxide Level 23.4 MEQ/L Anion Gap 16 MEQ/L Estimat Glomerular Filtration Rate 7 ML/MIN Lactic Acid Level 0.7 mmol/L Erythrocyte Sedimentation Rate 79 mm/hr Magnesium Level 1.9 MG/DL Total Bilirubin 0.5 MG/DL Direct Bilirubin 0.2 MG/DL Indirect Bilirubin 0.3 MG/DL Aspartate Amino Transf (AST/SGOT) 47 U/L Alanine Aminotransferase (ALT/SGPT) 19 U/L Alkaline Phosphatase 120 U/L C-Reactive Protein 2.22 MG/DL Total Protein 6.6 GM/DL Albumin 1.8 GM/DL Vital Signs Date Time Temp Pulse Resp B/P (MAP) Pulse Ox O2 Delivery O2 Flow Rate FiO2 07/16/17 13:27 18 07/16/17 11:07 98.3 86 24 117/64 (81) 100 Room Air Differential Diagnosis PAD versus cellulitis versus osteomyelitis versus other Narrative Course Patient is a 71-year-old female presenting to emergency evaluation of a right foot infection. Patient's vital signs are stable. Labs and imaging ordered and pending. Patient placed on telemetry monitoring, continuous pulse oximetry , IV access was established. Family at bedside. Pedal pulses by Doppler. CBC with a white count of 13.5 with left shift Sedimentation rate of 79 Potassium 3.1, BUN and creatinine 33/6.09. This is to be expected this patient is on peritoneal dialysis. CRP is 2.22, lactic acid 0.7 Patient was given dose of clindamycin as well as pain medication emergency department. She will be discharged home with follow-up with Dr. Nguyen, cardiovascular surgeon. Dr. Knapp discussed case with Dr. Nguyen. Patient was given oral potassium replacement in the emergency department. She is to continue peritoneal dialysis. She was encouraged to return to emergency department for any new or worsening symptoms. Patient verbalized understanding of instructions. Patient stable for discharge. Diagnosis Primary Impression: Cellulitis Qualified Codes: L03.115 - Cellulitis of right lower limb Additional Impressions: Circulatory disorder Hypokalemia Referrals: Lucio Sparrow MD 1 day Call to schedule a follow-up appointment Patient Instructions: Cellulitis (ED), General Instructions Additional Instructions: Follow-up with Dr. Sparrow, his number has been provided to you on your discharge paperwork Complete full course of antibiotics as prescribed Return to emergency department for any new or worsening symptoms Continue home pain medications as prescribed Med/Other Pt SpecificInfo: Prescription(s) given Scripts Clindamycin (Clindamycin) 300 Mg Cap 300 MG PO TID for Infection for 10 Days, CAP 0 Refills Prov: Faye Gutierrez 07/16/17 Disposition: 01 DISCHARGE HOME Condition: Stable Faye Gutierrez Jul 16, 2017 14:12
--- NOTE | 2017-07-16 14:19 | RADRPT ---
EXAM DATE/TIME: 07/16/2017 13:08 [facility] COMPARISON: No previous studies available for comparison. INDICATIONS : Inflammation. Patient complains of bilateral severe pain and has sores on feet. MEDICAL HISTORY : Diabetes mellitus type II. Cardiovascular disease. Hypertension SURGICAL HISTORY : Coronary artery stent. ENCOUNTER: Initial ACUITY: 4 - 6 days PAIN SCORE: 10/10 LOCATION: Left Foot. FINDINGS: Prominent plantar calcaneal spur is noted. There is no acute fracture or dislocation of the left farrah t. Mild degenerative changes are noted involving the 1st metatarsal phalangeal joint. No radiopaque foreign body is noted. CONCLUSION: 1. No acute fracture or dislocation. 2. Prominent plantar calcaneal spur. 3. Minimal degenerative changes involving the left 1st metatarsal phalangeal joint. Aníbal Mckeon MD on July 16, 2017 at 14:00 Board Certified Radiologist. This report was verified electronically.
--- NOTE | 2017-07-16 14:24 | RADRPT ---
EXAM DATE/TIME: 07/16/2017 13:08 [place] COMPARISON: No previous studies available for comparison. INDICATIONS : Inflamation. Patient complains of severe pain and sores bilateral feet. MEDICAL HISTORY : Diabetes mellitus type II. Cardiovascular disease. Hypertension SURGICAL HISTORY : Coronary artery stent. ENCOUNTER: Initial ACUITY: 4 - 6 days PAIN SCORE: 10/10 LOCATION: Right Foot. FINDINGS: Prominent plantar calcaneal spur is noted. There is evidence of apparent subluxation/dislocation of the right 4th middle phalanx. Moderate degenerative changes are noted involving the right 1st metata rsal phalangeal joint. There is no acute fracture of the right foot. No radiopaque foreign body is noted. CONCLUSION: 1. Apparent subluxation/dislocation of the right 4th middle phalanx. 2. Moderate degenerative changes involving the 1st metatarsal phalangeal joint. 3. Prominent plantar calcaneal spur. 4. No acute fracture. Aníbal Mckeon MD on July 16, 2017 at 14:02 Board Certified Radiologist. This report was verified electronically.
--- NOTE | 2017-07-16 14:35 | PD ---
Data Data Last Documented VS Vital Signs Date Time Temp Pulse Resp B/P (MAP) Pulse Ox O2 Delivery O2 Flow Rate FiO2 07/16/17 13:27 18 07/16/17 11:07 98.3 86 117/64 (81) 100 Room Air Orders Orders Complete Blood Count With Diff (07/16/17 11:27) Basic Metabolic Panel (Bmp) (07/16/17 11:27) Lactic Acid (07/16/17 11:27) Blood Culture (07/16/17 11:37) Hepatic Functional Panel (07/16/17 12:20) Magnesium (Mg) (07/16/17 12:20) C-Reactive Protein (Crp) (07/16/17 12:20) [place]gren Sedimentation Rate (07/16/17 12:20) Foot, Complete ([id number]) (07/16/17 ) Foot, Complete ([id number]) (07/16/17 ) Iv Access Insert/Monitor (07/16/17 12:20) Morphine Inj (Morphine Inj) (07/16/17 12:30) Ondansetron Inj (Zofran Inj) (07/16/17 12:30) Potassium Chloride (Kcl) (07/16/17 13:30) Clindamycin (Cleocin) (07/16/17 14:00) Morphine Inj (Morphine Inj) (07/16/17 14:00) Labs Laboratory Tests Test 07/16/17 11:36 07/16/17 12:45 White Blood Count 13.5 TH/MM3 Red Blood Count 3.69 MIL/MM3 Hemoglobin 12.2 GM/DL Hematocrit 36.0 % Mean Corpuscular Volume 97.5 FL Mean Corpuscular Hemoglobin 33.0 PG Mean Corpuscular Hemoglobin Concent 33.9 % Red Cell Distribution Width 15.4 % Platelet Count 499 TH/MM3 Mean Platelet Volume 8.6 FL Neutrophils (%) (Auto) 78.0 % Lymphocytes (%) (Auto) 12.4 % Monocytes (%) (Auto) 7.8 % Eosinophils (%) (Auto) 1.3 % Basophils (%) (Auto) 0.5 % Neutrophils # (Auto) 10.5 TH/MM3 Lymphocytes # (Auto) 1.7 TH/MM3 Monocytes # (Auto) 1.0 TH/MM3 Eosinophils # (Auto) 0.2 TH/MM3 Basophils # (Auto) 0.1 TH/MM3 CBC Comment DIFF FINAL Differential Comment Blood Urea Nitrogen 33 MG/DL Creatinine 6.09 MG/DL Random Glucose 71 MG/DL Calcium Level 7.9 MG/DL Sodium Level 136 MEQ/L Potassium Level 3.1 MEQ/L Chloride Level 97 MEQ/L Carbon Dioxide Level 23.4 MEQ/L Anion Gap 16 MEQ/L Estimat Glomerular Filtration Rate 7 ML/MIN Lactic Acid Level 0.7 mmol/L Erythrocyte Sedimentation Rate 79 mm/hr Magnesium Level 1.9 MG/DL Total Bilirubin 0.5 MG/DL Direct Bilirubin 0.2 MG/DL Indirect Bilirubin 0.3 MG/DL Aspartate Amino Transf (AST/SGOT) 47 U/L Alanine Aminotransferase (ALT/SGPT) 19 U/L Alkaline Phosphatase 120 U/L C-Reactive Protein 2.22 MG/DL Total Protein 6.6 GM/DL Albumin 1.8 GM/DL MDM Supervised Visit with CHILO: Yes Narrative Course The history, exam, and medical decision-making in the associated mid-level provider note were completed with my assistance. I reviewed and agree with the findings presented. I attest that I had a [id number] encounter with the patient on the same day, and personally performed and documented my assessment and findings in the medical record. *My assessment and Findings: 70 year-old woman peripheral arterial disease presents with couple areas of infection. She is multiple areas of dry gangrene. She needs evaluation by vascular surgery. There sinus up as an outpatient but she started getting worsening pain and erythema around one of the areas. She has infection. She is a peritoneal dialysis patient. She still has some kidney function and makes urine. She is not a good candidate for CTA. I spoke with Dr. Sparrow. Will follow-up in the office with her. Diagnosis Primary Impression: Cellulitis Qualified Codes: L03.115 - Cellulitis of right lower limb Additional Impressions: Circulatory disorder Hypokalemia Referrals: Lucio Sparrow MD 1 day Call to schedule a follow-up appointment Patient Instructions: General Instructions, Cellulitis (ED) Additional Instruction: Follow-up with Dr. Sparrow, his number has been provided to you on your discharge paperwork Complete full course of antibiotics as prescribed Return to emergency department for any new or worsening symptoms Continue home pain medications as prescribed Scripts Clindamycin (Clindamycin) 300 Mg Cap 300 MG PO TID for Infection for 10 Days, CAP 0 Refills Prov: Faye Gutierrez Dora RANDOLPH 07/16/17 Disposition: 01 DISCHARGE HOME Condition: Stable Darren Knapp MD Jul 16, 2017 14:35
[2017-07-16] MEDS ORDERED: HYDR-3533 PO (14:39)
[2017-07-16 15:06] VITALS: BP 116/67
== END 2017-07-16 15:24 | disposition home or self-care (01) ==
LOC: NEPE 11:05
DX: L03.115 Cellulitis of right lower limb (principal); E87.6 Hypokalemia; E11.52 Type 2 diabetes mellitus with diabetic peripheral angiopathy with gangrene; E11.22 Type 2 diabetes mellitus with diabetic chronic kidney disease; I12.0 Hypertensive chronic kidney disease with stage 5 chronic kidney disease or end stage renal disease; F17.200 Nicotine dependence, unspecified, uncomplicated; N18.6 End stage renal disease; Z99.2 Dependence on renal dialysis
CPT/HCPCS: 73630; 80048; 80076; 83605; 83735; 85025; 85652; 86140; 87040; 96374; 96376; 99284; J2270

== ENCOUNTER → 2017-07-23 | Outpatient (CLI) | payer MEDICARE ==
[~2017-07-23] MED LIST changes: +CLIN1CAP6 PO; +HYDR-3533 PO
== END ==
LOC: CLAB 13:44
PROVIDERS: ATTEND Surgery Vascular Surgery
DX: N18.6 End stage renal disease (principal)
CPT/HCPCS: 36415; 82565; 84520